=== PATIENT | male | born 1960 | race Caucasian/White ===

== ENCOUNTER 2017-12-22 10:52 | Outpatient (CLI) | payer OTHER ==
[2017-12-22 11:51] LABS: ALBUMIN 4.7 g/dL (3.2-5.5); ALBUMIN/GLOBULIN RATIO 1.6 (1.0-2.2); ALKALINE PHOSPHATASE 46 IU/L (42-121); ALT ALANINE AMINOTRANSFERASE 25 IU/L (10-60); AST ASPARTATE AMINOTRANSFERASE 21 IU/L (10-42); BILIRUBIN,TOTAL 0.9 mg/dL (0.2-1.0); BUN - BLOOD UREA NITROGEN 15 mg/dL (6-20); CALCIUM 9.4 mg/dL (8.5-10.3); CARBON DIOXIDE - CO2 29 mmol/L (21-32); CHLORIDE 101 mmol/L (101-111); CHOL/HDL RATIO 4.1 (<5.0); CHOLESTEROL 236 mg/dL; GFR - MDRD 76 (>89); GLUCOSE 102 mg/dL (70-100); HDL CHOLESTEROL 58 mg/dL; LDL CHOLESTEROL,CALCULATED 163 mg/dL; LDL/HDL RATIO 2.8 (<3.6); SODIUM 137 mmol/L (135-145); TOTAL PROTEIN 7.7 g/dL (6.7-8.2); VLDL CHOLESTEROL 15 mg/dL
[2017-12-22 11:52] LABS: BASOPHILS % (AUTO) 0.4 %; EOSINOPHILS # (AUTO) 0.1 10^3/uL (0.0-0.7); HGB - HEMOGLOBIN 15.4 g/dL (14.0-18.0); LYMPHOCYTES # (AUTO) 1.3 10^3/uL (1.5-3.5); LYMPHOCYTES % (AUTO) 22.8 %; MEAN CORPUSCULAR HEMOGLOBIN 30.4 pg (27.0-31.0); MEAN CORPUSCULAR HGB CONC 33.9 g/dL (32.0-36.0); MEAN CORPUSCULAR VOLUME 89.8 fL (80.0-94.0); MEAN PLATELET VOLUME 7.4 fL (7.4-11.4); MONOCYTES # (AUTO) 0.6 10^3/uL (0.0-1.0); MONOCYTES % (AUTO) 11.1 %; NEUTROPHILS # (AUTO) 3.6 10^3/uL (1.5-6.6); NEUTROPHILS % (AUTO) 63.7 %; PLT - PLATELET COUNT 306 10^3/uL (130-450); RED BLOOD COUNT 5.05 10^6/uL (4.70-6.10); RED CELL DISTRIBUTION WIDTH 13.3 % (12.0-15.0); WHITE BLOOD COUNT 5.6 x10^3/uL (4.8-10.8)
== END 2017-12-22 10:53 | disposition home or self-care (01) ==
LOC: LAB 10:52
PROVIDERS: ATTEND Internal Medicine
DX: Z00.8 Encounter for other general examination (principal); C09.9 Malignant neoplasm of tonsil, unspecified
CPT/HCPCS: 36415; 80053; 80061; 83721; 84153; 85025

== ENCOUNTER 2019-03-18 10:11 | Outpatient (CLI) | payer OTHER ==
[2019-03-18 10:21] LABS: BASOPHILS % (AUTO) 0.3 %; EOSINOPHILS # (AUTO) 0.1 10^3/uL (0.0-0.7); EOSINOPHILS % (AUTO) 2.1 %; HGB - HEMOGLOBIN 15.4 g/dL (14.0-18.0); MEAN CORPUSCULAR HEMOGLOBIN 30.4 pg (27.0-31.0); MEAN CORPUSCULAR VOLUME 91.9 fL (80.0-94.0); MEAN PLATELET VOLUME 8.6 fL (7.4-11.4); MONOCYTES # (AUTO) 0.6 10^3/uL (0.0-1.0); MONOCYTES % (AUTO) 11.1 %; NEUTROPHILS % (AUTO) 69.2 %; PLT - PLATELET COUNT 315 10^3/uL (130-450); RED BLOOD COUNT 5.07 10^6/uL (4.70-6.10); RED CELL DISTRIBUTION WIDTH 12.6 % (12.0-15.0); WHITE BLOOD COUNT 5.8 x10^3/uL (4.8-10.8)
[2019-03-18 10:40] LABS: ALBUMIN 4.8 g/dL (3.2-5.5); ALBUMIN/GLOBULIN RATIO 1.8 (1.0-2.2); ALKALINE PHOSPHATASE 50 IU/L (42-121); ALT ALANINE AMINOTRANSFERASE 55 IU/L (10-60); AST ASPARTATE AMINOTRANSFERASE 45 IU/L (10-42); BILIRUBIN,TOTAL 0.9 mg/dL (0.2-1.0); BUN - BLOOD UREA NITROGEN 13 mg/dL (6-20); CALCIUM 9.1 mg/dL (8.5-10.3); CARBON DIOXIDE - CO2 29 mmol/L (21-32); CHLORIDE 100 mmol/L (101-111); CHOL/HDL RATIO 3.5 (<5.0); CHOLESTEROL 252 mg/dL; GFR - MDRD 76 (>89); GLUCOSE 116 mg/dL (70-100); HDL CHOLESTEROL 72 mg/dL; LDL CHOLESTEROL,CALCULATED 166 mg/dL; LDL/HDL RATIO 2.3 (<3.6); SODIUM 137 mmol/L (135-145); TOTAL PROTEIN 7.5 g/dL (6.7-8.2); VLDL CHOLESTEROL 14 mg/dL
[2019-03-18 10:43] LABS: HB2 TOTAL 16.4 g/dL; HEMOGLOBIN A1C 0.61 g/dL; HEMOGLOBIN A1C % 5.6 % (4.6-6.2)
== END 2019-03-18 10:12 | disposition home or self-care (01) ==
LOC: LAB 10:11
PROVIDERS: ATTEND Family Medicine
DX: E78.5 Hyperlipidemia, unspecified (principal); R01.1 Cardiac murmur, unspecified; M19.90 Unspecified osteoarthritis, unspecified site
CPT/HCPCS: 36415; 80053; 80061; 83036; 83721; 84443; 85025

== ENCOUNTER 2021-01-03 07:46 | Outpatient (CLI) | payer OTHER ==
[2021-01-03 08:52] LABS: ALBUMIN 5.2 g/dL (3.2-5.5); ALKALINE PHOSPHATASE 45 IU/L (42-121); ALT ALANINE AMINOTRANSFERASE 36 IU/L (10-60); AST ASPARTATE AMINOTRANSFERASE 28 IU/L (10-42); BILIRUBIN,TOTAL 0.8 mg/dL (0.2-1.0); BUN - BLOOD UREA NITROGEN 18 mg/dL (6-20); CALCIUM 9.8 mg/dL (8.5-10.3); CARBON DIOXIDE - CO2 29 mmol/L (21-32); CHLORIDE 99 mmol/L (101-111); CHOL/HDL RATIO 3.2 (<5.0); CHOLESTEROL 204 mg/dL; CREATININE 0.9 mg/dL (0.6-1.2); GFR - MDRD 86 (>89); GLUCOSE 104 mg/dL (70-100); HDL CHOLESTEROL 63 mg/dL; LDL CHOLESTEROL,CALCULATED 128 mg/dL; POTASSIUM 4.4 mmol/L (3.5-5.0); SODIUM 138 mmol/L (135-145); TOTAL PROTEIN 7.8 g/dL (6.7-8.2); TRIGLYCERIDES 64 mg/dL; VLDL CHOLESTEROL 13 mg/dL
== END 2021-01-03 07:47 | disposition home or self-care (01) ==
LOC: LAB 07:46
PROVIDERS: ATTEND Family Medicine
DX: E78.5 Hyperlipidemia, unspecified (principal); E03.9 Hypothyroidism, unspecified; N40.1 Benign prostatic hyperplasia with lower urinary tract symptoms
CPT/HCPCS: 36415; 80053; 80061; 83721; 84153; 84443

== ENCOUNTER 2021-03-28 07:31 | Outpatient (CLI) | payer OTHER ==
[2021-03-28 08:41] LABS: PSA FREE 2.29 ng/mL (0.16-2.81)
[2021-03-28 08:42] LABS: PSA TOTAL 19.6 ng/mL (0.000-2.000)
== END 2021-03-28 07:32 | disposition home or self-care (01) ==
LOC: LAB 07:31
PROVIDERS: ATTEND Physician Assistant
DX: R97.20 Elevated prostate specific antigen [PSA] (principal)
CPT/HCPCS: 36415; 84153; 84154

== ENCOUNTER 2021-07-08 11:20 | Outpatient (CLI) | payer OTHER | END 2021-07-08 11:21 | disposition home or self-care (01) | LOC: LAB 11:20 | PROVIDERS: ATTEND Urology | DX: R97.20 Elevated prostate specific antigen [PSA] (principal) | CPT/HCPCS: 36415; 84153 ==

== ENCOUNTER 2021-08-15 07:08 | Day surgery (SDC) | payer OTHER ==
[~2021-08-15 07:08] MED LIST: CYCLOPENTOLATE 1% OPHTH DROPS 2 ML ONE; KETOROLAC 0.45% OPHTH DROPS ONE; PHENYLEPHRINE 2.5% OPHTH 2 ML DROPS ONE; PROPARACAINE 0.5% OPHTH DROPS 15 ML ONE
[2021-08-15] MEDS ORDERED: LACTATED RINGERS 1,000 ML IV ONE ×2 (07:11→09:16)
--- NOTE | 2021-08-15 07:44 | ANESTHESIA ---
Pre-Anesthesia VS, & Labs - Diagnosis left senile combined cataract - Procedure left cataract extraction with IOL Vital Signs: Temp Pulse Resp BP Pulse Ox 36.4 C L 65 16 132/92 H 99 08/15/21 07:20 08/15/21 07:20 08/15/21 07:20 08/15/21 07:20 08/15/21 07:20 Height: 5 ft 9 in Weight (kg): 96 kg Body Mass Index: 31.2 BMI Classification: Obese - NPO >8 hours Home Medications and Allergies Home Medications: Ambulatory Orders Atorvastatin [Lipitor] 20 mg PO DAILY 08/14/21 Atorvastatin [Lipitor] 20 mg PO DAILY 08/14/21 Allergies/Adverse Reactions: Allergies Allergy/AdvReac Type Severity Reaction Status Date / Time No Known Drug Allergies Allergy Verified 08/14/21 12:34 Anes History & Medical History - Anesthetic History Anesthesia Complications: reports: No previous complications - Medical History Cardiovascular: reports: High cholesterol Pulmonary: reports: None Gastrointestinal: reports: None Urinary: reports: Other Musculoskeletal: reports: None Endocrine/Autoimmune: reports: None Skin: reports: None History of Cancer?: No - Surgical History General: reports: Colonoscopy Exam General: Alert, Oriented x3 Dental: WNL Mouth Opening: Greater than 4 Fingerbreadths Neck Mobility: Normal Mallampati classification: I Respiratory: Lungs clear Cardiovascular: Regular rate, Normal S1, Normal S2 Plan Anesthesia Type: MAC Consent for Procedure(s) Verified and Reviewed: Yes Code Status: Attempt Resuscitation ASA classification: 2-Mild systemic disease Is this case an emergency?: No
[2021-08-15] MEDS ORDERED: fentaNYL 100 MCG/2 ML VIAL ONE (08:29)
[2021-08-15] MEDS ORDERED: MIDAZOLAM 2 MG/2 ML VIAL ONE (08:29)
[2021-08-15] MEDS ORDERED: PROPARACAINE 0.5% OPHTH DROPS 15 ML EACHEYE ONE (09:05)
[2021-08-15] MEDS ORDERED: EPINEPHrine 1 MG/ML AMP IR ONE (09:05)
[2021-08-15] MEDS ORDERED: TIMOLOL 0.5% OPHTH DROPS OPTH ONE (09:05)
[2021-08-15] MEDS ORDERED: BRIMONIDINE 0.2% OPHTH DROPS 5 ML OPTH ONE (09:05)
[2021-08-15] MEDS ORDERED: BSS/LIDOCAINE/EPINEPHRINE 1 ML SYRINGE IO ONE (09:05)
[2021-08-15] MEDS ORDERED: TRIAMCIN/MOXIFLOX OPHTHALMIC 0.6 ML VIAL IO ONE ×2 (09:05→10:32)
[2021-08-15] MEDS ORDERED: VANCOMYCIN OPHTHALMI 8MG/0.8ML 8 MG/0.8 ML SYRINGE IO ONE (09:06)
--- NOTE | 2021-08-15 09:27 | OPERATIVE REPORT ---
Operative Report - Other Other Information/Narrative: Date of Surgery: 08/15/21 Preop Dx: Visually significant cataract left eye. This was the first cataract surgery. Postop Dx: Same Procedure: Phacoemulsification with posterior chamber intraocular lens implant left eye Surgeon: Dr. Jairon Delacruz Anesthesia: Monitored anesthesia care Complications: None Operative Indications: This is a 61-year-old M with progressive vision loss in the left eye due to 1-2+ nuclear sclerotic and 3-4+ cortical cataract. Best corrected visual acuity was 20/25 with glare to light perception vision in the left eye. Indications for surgery were: - Overall decrease in vision - Difficulty seeing words on a computer screen - Difficulty reading - Difficulty driving in low light or at night - Difficulty driving at night because of headlights from other vehicles - Difficulty with glare or bright lights in any situation The patient was consented at length concerning the risks and benefits of cataract surgery after which the patient expressed a desire to proceed with surgery. Operative Procedure: The patient was taken into OR#3 and placed under monitored anesthesia care. A surgical time-out was conducted confirming correct patient, correct procedure, and correct surgical site. The patient was given topical anesthesia and then prepped and draped in the usual sterile fashion. The eye was entered at the 6 and 3 oclock positions. Intracameral Shugarcaine was injected into the anterior chamber followed by a dispersive viscoelastic. A continuous-tear curvilinear capsulorhexis was performed. The nucleus was hydrodissected and phacoemulsified. The cortex was evacuated using automated infusion and aspiration. A cohesive viscoelastic was injected into the capsular bag and a 21.0 diopter intraocular lens was inserted into the bag. Infusion and aspiration were used to evacuate the viscoelastic materials from the eye. The wounds were hydrated and the eye inflated to physiologic pressure using balanced salt solution. Approximately 0.25ml of a mixture of triamcinolone and moxifloxacin was injected trans-sclerally into the vitreous in the inferotemporal quadrant using a 30 gauge cannula. An additional 0.55ml of a mixture of triamcinolone, moxifloxacin, and vancomycin was injected subconjunctivally in the superior quadrant for infection and inflammation prophylaxis. Wound integrity was checked with Weck-Mariaelena sponges. The patient was taken from the operating room in good condition and given post-op instructions.
[2021-08-15 09:33] VITALS: BP 125/74
--- NOTE | 2021-08-15 09:44 | ANESTHESIA POST OP EVALUATION ---
Anesthesia Post Eval - Post Anesthesia Eval Vitals: Last Vital Signs Temp 36.5 C 08/15/21 09:32 Pulse 62 08/15/21 09:32 Resp 16 08/15/21 09:32 BP 125/74 08/15/21 09:32 Pulse Ox 96 08/15/21 09:32 CV Function Including HR & BP: Stable Pain Control: Satisfactory Nausea & Vomiting: Negative Mental Status: Baseline Respiratory Status: Airway Patent Hydration Status: Satisfactory Anesthesia Complications: None
[2021-08-15] MEDS ORDERED: BSS/LIDOCAINE/EPINEPHRINE 1 ML VIAL ONE (10:33)
[2021-08-15] MEDS ORDERED: BRIMONIDINE 0.2% OPHTH DROPS 5 ML ONE (10:33)
[2021-08-15] MEDS ORDERED: TIMOLOL 0.5% OPHTH DROPS ONE (10:33)
== END 2021-08-15 07:09 | disposition home or self-care (01) ==
LOC: SDS 07:08
PROVIDERS: ATTEND Ophthalmology
DX: H25.812 Combined forms of age-related cataract, left eye (principal); E66.9 Obesity, unspecified; Z68.31 Body mass index [BMI] 31.0-31.9, adult
CPT/HCPCS: 66984; A9270; J3490; J7120

== ENCOUNTER 2021-09-02 10:11 | Outpatient (CLI) | payer OTHER ==
[2021-09-02 11:37] LABS: PSA FREE 6.187 ng/mL (0.16-2.81)
[2021-09-02 11:38] LABS: PSA TOTAL 48.764 ng/mL (0.000-2.000)
== END 2021-09-02 10:12 | disposition home or self-care (01) ==
LOC: LAB 10:11
PROVIDERS: ATTEND Physician Assistant
DX: C61 Malignant neoplasm of prostate (principal)
CPT/HCPCS: 36415; 84153; 84154

== ENCOUNTER 2021-12-09 12:00 | Outpatient (CLI) | payer OTHER | END 2021-12-09 12:01 | disposition home or self-care (01) | LOC: LAB 12:00 | PROVIDERS: ATTEND Urology | DX: C61 Malignant neoplasm of prostate (principal) | CPT/HCPCS: 36415; 84153; 84403 ==

== ENCOUNTER 2022-07-17 12:53 | Outpatient (CLI) | payer OTHER ==
[2022-07-17 13:54] LABS: CHOL/HDL RATIO 3.4 (<5.0); CHOLESTEROL 258 mg/dL; HDL CHOLESTEROL 77 mg/dL; LDL CHOLESTEROL,CALCULATED 154 mg/dL; TRIGLYCERIDES 134 mg/dL; VLDL CHOLESTEROL 27 mg/dL
[2022-07-18 05:14] LABS: HCV AB Non Reactive (Non Reactive)
== END 2022-07-17 12:54 | disposition home or self-care (01) ==
LOC: LAB 12:53
PROVIDERS: ATTEND Physician Assistant
DX: E78.5 Hyperlipidemia, unspecified (principal); E03.9 Hypothyroidism, unspecified; Z11.59 Encounter for screening for other viral diseases
CPT/HCPCS: 36415; 80061; 83721; 84443; 86803

== ENCOUNTER 2022-09-11 11:17 | Outpatient (CLI) | payer OTHER ==
[2022-09-11 12:08] LABS: THYROID STIMULATING HORMONE 7.09 uIU/mL (0.34-5.60)
[2022-09-11 12:10] LABS: FREE T4 (FREE THYROXINE) 0.52 ng/dL (0.58-1.64)
== END 2022-09-11 11:18 | disposition home or self-care (01) ==
LOC: LAB 11:17
PROVIDERS: ATTEND Nurse Practitioner Family
DX: R94.6 Abnormal results of thyroid function studies (principal)
CPT/HCPCS: 36415; 84439; 84443

== ENCOUNTER 2022-09-20 09:02 | Outpatient (CLI) | payer OTHER ==
[~2022-09-20 09:02] MED LIST changes: -CYCLOPENTOLATE 1% OPHTH DROPS 2 ML ONE; +GADOBUTROL 10 MMOL/10 ML VIAL ONE; -KETOROLAC 0.45% OPHTH DROPS ONE; -PHENYLEPHRINE 2.5% OPHTH 2 ML DROPS ONE; -PROPARACAINE 0.5% OPHTH DROPS 15 ML ONE
[2022-09-20 09:25] LABS: CALCIUM 9.5 mg/dL (8.5-10.3); CREATININE 0.9 mg/dL (0.6-1.2); POTASSIUM 4.4 mmol/L (3.5-5.0)
[2022-09-20] MEDS ORDERED: GADOBUTROL 10 MMOL/10 ML VIAL IVP ONE (11:18)
--- NOTE | 2022-09-22 17:56 | MRI Report ---
PROCEDURE: THORACIC SPINE W/WO INDICATIONS: PROSTATE CA, METASTASIS TO BONE CONTRAST: GADAVIST 9.0 ML TECHNIQUE: Noncontrast sagittal T1 spin echo and T2 fast spin echo, sagittal STIR, axial T1 and T2 fast spin ech o through the thoracic spine. After the administration of contrast, axial and sagittal T1 spin echo with fat saturation through the thoracic spine. COMPARISON: None. FINDINGS: Image quality: Excellent. Alignment and curvature: There is normal bony alignment. Marrow: Marrow demonstrates diffuse abnormality within significant portion of the visualized thoracic spine. Areas of abnormal marrow signal are present at C7-T2 without definitive abnormal enhancement. However, abnormal enhancement and signal are identified from T5 through T10 and at T12. There are no visualized pathological fractures. Spinal cord: Visualized spinal cord is of normal signal and size, without abnormal enhancement. Paraspinous soft tissues: No paravertebral masses or abnormal enhancement. Miscellaneous: Central canal and foramina appear widely patent at all scanned levels. IMPRESSION: Multilevels of abnormal signal and enhancement consistent with metastatic disease. No compression fra ctures. No visualized enhancement within the spinal cord or canal. Reviewed by: Saige Murillo MD on 09/22/2022 5:55 PM PDT Approved by: Saige Murillo MD on 09/22/2022 5:55 PM PDT Station ID: [id number]
== END 2022-09-20 09:03 | disposition home or self-care (01) ==
LOC: LAB 09:02
PROVIDERS: ATTEND Neurological Surgery
DX: C61 Malignant neoplasm of prostate (principal); C79.51 Secondary malignant neoplasm of bone; M48.062 Spinal stenosis, lumbar region with neurogenic claudication
CPT/HCPCS: 36415; 72157; 80048; A9585

== ENCOUNTER 2023-03-02 10:50 | Outpatient (CLI) | payer MEDICARE, OTHER ==
[2023-03-02 11:28] LABS: CHOL/HDL RATIO 3.3 (<5.0); CHOLESTEROL 186 mg/dL; HDL CHOLESTEROL 57 mg/dL; LDL CHOLESTEROL,CALCULATED 109 mg/dL; LDL/HDL RATIO 1.9 (<3.6); TRIGLYCERIDES 101 mg/dL (48-352); VLDL CHOLESTEROL 20 mg/dL
[2023-03-02 12:01] LABS: THYROID STIMULATING HORMONE 2.64 uIU/mL (0.34-5.60)
== END 2023-03-02 10:51 | disposition home or self-care (01) ==
LOC: LAB 10:50
PROVIDERS: ATTEND Nurse Practitioner Family
DX: E78.5 Hyperlipidemia, unspecified (principal); E03.9 Hypothyroidism, unspecified
CPT/HCPCS: 36415; 80061; 83721; 84443

== ENCOUNTER 2023-06-12 08:00 | Outpatient (CLI) | payer OTHER | END 2023-06-12 23:59 | disposition home or self-care (01) | LOC: PC 08:00 | PROVIDERS: ATTEND Nurse Practitioner Adult Health | DX: Z51.5 Encounter for palliative care (principal); G89.3 Neoplasm related pain (acute) (chronic); C61 Malignant neoplasm of prostate; C77.9 Secondary and unspecified malignant neoplasm of lymph node, unspecified; C79.51 Secondary malignant neoplasm of bone; K59.03 Drug induced constipation; T40.2X5A Adverse effect of other opioids, initial encounter; F41.9 Anxiety disorder, unspecified; G47.00 Insomnia, unspecified; Z71.89 Other specified counseling | CPT/HCPCS: 99215 ==

== ENCOUNTER 2023-06-14 08:00 | Outpatient (CLI) | payer OTHER | END 2023-06-14 23:59 | disposition home or self-care (01) | LOC: PC 08:00 | PROVIDERS: ATTEND Nurse Practitioner Adult Health | DX: Z51.5 Encounter for palliative care (principal); C61 Malignant neoplasm of prostate; C79.51 Secondary malignant neoplasm of bone | CPT/HCPCS: 99426 ==

== ENCOUNTER 2023-06-26 08:00 | Outpatient (CLI) | payer OTHER | END 2023-06-26 23:59 | disposition home or self-care (01) | LOC: PC 08:00 | PROVIDERS: ATTEND Nurse Practitioner Adult Health | DX: Z51.5 Encounter for palliative care (principal); G89.3 Neoplasm related pain (acute) (chronic); C61 Malignant neoplasm of prostate; C79.51 Secondary malignant neoplasm of bone; Z19.2 Hormone resistant malignancy status; G47.00 Insomnia, unspecified; F41.8 Other specified anxiety disorders; K59.03 Drug induced constipation; T40.2X5A Adverse effect of other opioids, initial encounter; Z71.89 Other specified counseling; Z79.899 Other long term (current) drug therapy; Z79.891 Long term (current) use of opiate analgesic; Z79.52 Long term (current) use of systemic steroids; R63.0 Anorexia; R53.83 Other fatigue | CPT/HCPCS: 99215 ==

== ENCOUNTER 2023-07-02 13:48 | Outpatient (CLI) | payer OTHER | END 2023-07-02 13:49 | disposition home or self-care (01) | LOC: LAB 13:48 | PROVIDERS: ATTEND Radiology Radiation Oncology | DX: C61 Malignant neoplasm of prostate (principal); C79.51 Secondary malignant neoplasm of bone ==

== ENCOUNTER 2023-07-14 08:00 | Outpatient (CLI) | payer OTHER | END 2023-07-14 23:59 | disposition home or self-care (01) | LOC: PC 08:00 | PROVIDERS: ATTEND Nurse Practitioner Adult Health | DX: Z51.5 Encounter for palliative care (principal); C61 Malignant neoplasm of prostate; C79.51 Secondary malignant neoplasm of bone | CPT/HCPCS: 99426 ==

== ENCOUNTER 2023-07-24 14:00 | Outpatient (CLI) | payer OTHER | END 2023-07-24 23:59 | disposition home or self-care (01) | LOC: PC 14:00 | PROVIDERS: ATTEND Nurse Practitioner Adult Health | DX: Z51.5 Encounter for palliative care (principal); G89.3 Neoplasm related pain (acute) (chronic); C61 Malignant neoplasm of prostate; R53.83 Other fatigue; C79.51 Secondary malignant neoplasm of bone | CPT/HCPCS: 99215 ==

== ENCOUNTER 2023-08-14 08:00 | Outpatient (CLI) | payer OTHER | END 2023-08-14 23:59 | disposition home or self-care (01) | LOC: PC 08:00 | PROVIDERS: ATTEND Nurse Practitioner Adult Health | DX: Z51.5 Encounter for palliative care (principal); G89.3 Neoplasm related pain (acute) (chronic); C61 Malignant neoplasm of prostate; K59.03 Drug induced constipation; T40.2X5A Adverse effect of other opioids, initial encounter; R53.83 Other fatigue; R03.0 Elevated blood-pressure reading, without diagnosis of hypertension; R23.2 Flushing; R61 Generalized hyperhidrosis; Z71.89 Other specified counseling | CPT/HCPCS: 99215; 99426 ==

== ENCOUNTER 2023-08-14 08:00 | Outpatient (CLI) | payer OTHER | END 2023-08-14 23:59 | disposition home or self-care (01) | LOC: PC 08:00 | PROVIDERS: ATTEND Nurse Practitioner Adult Health | DX: Z53.9 Procedure and treatment not carried out, unspecified reason (principal) ==

== ENCOUNTER 2023-10-09 08:00 | Outpatient (CLI) | payer OTHER | END 2023-10-09 23:59 | disposition home or self-care (01) | LOC: PC 08:00 | PROVIDERS: ATTEND Nurse Practitioner Adult Health | DX: Z51.5 Encounter for palliative care (principal); C61 Malignant neoplasm of prostate; C79.51 Secondary malignant neoplasm of bone; Z19.2 Hormone resistant malignancy status; G89.3 Neoplasm related pain (acute) (chronic); R53.83 Other fatigue; D64.9 Anemia, unspecified; Z79.52 Long term (current) use of systemic steroids; Z79.891 Long term (current) use of opiate analgesic; Z79.818 Long term (current) use of other agents affecting estrogen receptors and estrogen levels; Z92.3 Personal history of irradiation; Z85.818 Personal history of malignant neoplasm of other sites of lip, oral cavity, and pharynx; R23.2 Flushing; R63.0 Anorexia; Z79.899 Other long term (current) drug therapy; Z91.85 Personal history of military service; Z77.9 Other contact with and (suspected) exposures hazardous to health; K59.03 Drug induced constipation; F41.8 Other specified anxiety disorders; I10 Essential (primary) hypertension | CPT/HCPCS: 99215 ==

== ENCOUNTER 2023-10-12 10:26 | Outpatient (CLI) | payer OTHER ==
[2023-10-12 10:40] LABS: BASOPHILS % (AUTO) 0.2 %; EOSINOPHILS % (AUTO) 0.7 %; HCT - HEMATOCRIT 33.2 % (42.0-52.0); HGB - HEMOGLOBIN 10.3 g/dL (14.0-18.0); LYMPHOCYTES # (AUTO) 0.3 10^3/uL (1.5-3.5); LYMPHOCYTES % (AUTO) 4.6 %; MEAN CORPUSCULAR HEMOGLOBIN 28.5 pg (27.0-31.0); MEAN PLATELET VOLUME 8.1 fL (7.4-11.4); MONOCYTES # (AUTO) 0.6 10^3/uL (0.0-1.0); NEUTROPHILS # (AUTO) 5.2 10^3/uL (1.5-6.6); NEUTROPHILS % (AUTO) 85.2 %; PLT - PLATELET COUNT 369 10^3/uL (130-450); RED BLOOD COUNT 3.61 10^6/uL (4.70-6.10); RED CELL DISTRIBUTION WIDTH 14.2 % (12.0-15.0); WHITE BLOOD COUNT 6.1 x10^3/uL (4.8-10.8)
[2023-10-12 11:01] LABS: ALBUMIN 3.9 g/dL (3.2-5.5); ALBUMIN/GLOBULIN RATIO 1.3 (1.0-2.2); BILIRUBIN,TOTAL 0.3 mg/dL (0.2-1.0); CALCIUM 9.5 mg/dL (8.5-10.3); CREATININE 0.9 mg/dL (0.6-1.3); POTASSIUM 4.3 mmol/L (3.5-4.5); TOTAL PROTEIN 6.9 g/dL (6.4-8.9)
== END 2023-10-12 10:27 | disposition home or self-care (01) ==
LOC: LAB 10:26
PROVIDERS: ATTEND Internal Medicine Hematology & Oncology
DX: C61 Malignant neoplasm of prostate (principal)
CPT/HCPCS: 36415; 80053; 84153; 84154; 85025

== ENCOUNTER 2023-11-06 11:00 | Outpatient (CLI) | payer OTHER | END 2023-11-06 23:59 | disposition home or self-care (01) | LOC: PC 11:00 | PROVIDERS: ATTEND Nurse Practitioner Adult Health | DX: Z51.5 Encounter for palliative care (principal); C61 Malignant neoplasm of prostate; C79.51 Secondary malignant neoplasm of bone; G89.3 Neoplasm related pain (acute) (chronic); R53.83 Other fatigue; K59.03 Drug induced constipation; Z79.52 Long term (current) use of systemic steroids; Z79.899 Other long term (current) drug therapy; Z71.89 Other specified counseling | CPT/HCPCS: 99215 ==

== ENCOUNTER 2023-11-06 11:18 | Outpatient (CLI) | payer OTHER | END 2023-11-06 11:19 | disposition home or self-care (01) | LOC: LAB.R 11:18 | PROVIDERS: ATTEND Radiology Radiation Oncology | DX: C61 Malignant neoplasm of prostate (principal); C79.51 Secondary malignant neoplasm of bone | CPT/HCPCS: 84153 ==

== ENCOUNTER 2023-12-28 11:51 | Inpatient (IN) ==
--- NOTE | 2023-12-28 12:27 | ED Physician Documentation ---
History of Present Illness Stated complaint Stated Complaint: CP Chief complaint Chief Complaint: Cardiac Additonal information Additional information: He has a history of metastatic prostate cancer and being treated by Dr. Hart. He is on Zytiga most recently and also getting Lupron hormonal therapy. He was seen by my partner earlier in the month for pleuritic chest pain. Was found to have bony mets to the ribs and also pleural effusion. He needed a transfusion at the time. Subsequently that pain got better but now has recurrent left anterior pinpoint chest wall pain worse with deep breathing but he is not short of breath per se. No fevers or chills. His pain is currently controlled after taking oxycodone this morning. Meds/Allgy Home Medications Ambulatory Orders Medication Instructions Recorded Confirmed enzalutamide 80 mg tablet 160 mg (2 x 80 mg) PO QDAY #60 tabs 12/21/23 12/21/23 abiraterone 250 mg tablet (Zytiga) 1,000 mg PO QDAY 12/22/23 atorvastatin 40 mg tablet (Lipitor) 40 mg PO QDAY 12/22/23 latanoprost (PF) 0.005 % eye drops 150 drp ophthalmic (eye) DAILY 12/22/23 latanoprost 0.005 % eye drops 1 drp ophthalmic (eye) QPM 12/22/23 levothyroxine 50 mcg tablet 50 mcg PO QDAY 12/22/23 morphine 30 mg tablet,extended 30 mg PO Q8H Pain 12/22/23 release multivitamin 1 tab PO QDAY 12/22/23 naloxone 4 mg/actuation nasal 4 mg intranasal Q3M PRN opioid 12/22/23 spray (Narcan) overdose ondansetron HCl 8 mg tablet 8 mg PO .Q6 hours PRN Nausea / 12/22/23 Vomiting prednisone 5 mg tablet 5 mg PO BID 12/22/23 pregabalin 25 mg capsule 25 mg PO TID 12/22/23 tamsulosin 0.4 mg capsule 0.8 mg PO QDAY 12/22/23 venlafaxine 75 mg tablet 75 mg PO BID 12/22/23 methylphenidate HCl 10 mg tablet 15 mg (1.5 x 10 mg) PO BID fatigue 12/23/23 12/23/23 #45 tabs morphine 15 mg tablet,extended 15 mg PO TID #45 tabs 12/23/23 12/23/23 release (MS Contin) oxycodone 5 mg tablet 5 - 15 mg (1 - 3 x 5 mg) PO .every 12/23/23 12/23/23 three hours PRN pain #240 tabs prednisone 5 mg tablet 5 mg PO BID #60 tabs 12/23/23 12/23/23 amoxicillin-potassium clavulanate 1 tab PO BID #10 tabs 12/28/23 1,000 mg-62.5 mg tablet,ext.rel 12hr (Augmentin XR) azithromycin 250 mg tablet 250 mg PO DAILY 4 days #4 tabs 12/28/23 Allergies Allergies Allergy/AdvReac Type Severity Reaction Status Date / Time No Known Drug Allergies Allergy Verified 12/28/23 12:02 [facility] Medical History Medical History (Updated 12/28/23 @ 15:37 by Zia Goddard MD) Tonsil cancer Surgical History Surgical History (Updated 12/28/23 @ 12:01 by Zuly Donis RN, BSN) History of insertion of central venous access port Social History Social History Smoking Status: Never smoker Relationship: Do you feel safe in your home environment?: Yes Suffered physical, verbal, emotional, or financial abuse?: No Exam Constitutional normal general appearance and no apparent distress Respiratory breath sounds equal bilaterally and normal respiratory effort Left ribs are tender Cardiovascular normal heart rate noted and regular rhythm noted He does have a systolic decrescendo murmur which she says is chronic Gastrointestinal abdomen soft to palpation and nontender to palpation Extremities No edema or tenderness Psychiatry mental status grossly normal and oriented x3 Results Vitals Vitals: Vital Signs - 24 hr 12/28/23 11:54 12/28/23 12:09 12/28/23 12:10 Temperature 36.2 C L Temperature Source Pulse Rate 102 H 93 H Respiratory Rate 18 Blood Pressure 112/76 124/78 Blood Pressure [Left] 124/78 O2 Saturation 96 97 O2 Source Room air Room air If not protocol: Oxygen Flow, liters/minute Pain Intensity 7 2 12/28/23 12:12 12/28/23 12:32 12/28/23 12:39 Temperature Temperature Source Pulse Rate 90 89 85 Respiratory Rate 18 Blood Pressure 119/71 119/71 101/65 Blood Pressure [Left] O2 Saturation 96 96 94 O2 Source Room air Room air Room air If not protocol: Oxygen Flow, liters/minute Pain Intensity 2 2 2 12/28/23 13:02 12/28/23 13:09 12/28/23 13:32 Temperature Temperature Source Pulse Rate 85 91 H 90 Respiratory Rate 14 16 Blood Pressure 101/65 105/73 105/73 Blood Pressure [Left] O2 Saturation 94 89 L 94 O2 Source Room air Room air Room air If not protocol: Oxygen Flow, liters/minute Pain Intensity 2 2 2 12/28/23 13:40 12/28/23 14:02 12/28/23 15:05 Temperature Temperature Source Pulse Rate 82 82 97 H Respiratory Rate 16 Blood Pressure 121/71 121/71 122/76 Blood Pressure [Left] O2 Saturation 94 94 95 O2 Source Room air Room air Room air If not protocol: Oxygen Flow, liters/minute Pain Intensity 2 2 2 12/28/23 15:07 12/28/23 15:08 12/28/23 15:35 Temperature 36.4 C L Temperature Source Temporal Artery Scan Pulse Rate 98 H 89 Respiratory Rate 22 Blood Pressure 122/76 115/68 Blood Pressure [Left] O2 Saturation 95 86 L 95 O2 Source Room air Room air Room air If not protocol: Oxygen Flow, liters/minute Pain Intensity 4 2 12/28/23 15:52 12/28/23 16:03 12/28/23 16:30 Temperature 36.2 C L Temperature Source Temporal Artery Scan Pulse Rate 93 H 85 Respiratory Rate 19 Blood Pressure 123/74 106/67 Blood Pressure [Left] O2 Saturation 91 L 22 L O2 Source Room air Nasal cannula If not protocol: Oxygen Flow, liters/minute 2 Pain Intensity 4 2 2 12/28/23 16:54 12/28/23 16:55 Temperature 36.2 C L Temperature Source Temporal Artery Scan Pulse Rate 90 Respiratory Rate 25 H Blood Pressure 116/73 Blood Pressure [Left] O2 Saturation 98 O2 Source Nasal cannula If not protocol: Oxygen Flow, liters/minute 2 Pain Intensity 2 2 Oxygen O2 Source Nasal cannula EKG (time done) 1155: EKG releavant findings:: EKG personally interpreted by author of this note. Relevant findings are: Rate: Rate (enter#) (94) Rhythm: NSR [place]: Normal Intervals: Normal VA QRS: Normal Ischemia: Non specific changes; No ST elevation c/w ischemia Labs Labs: Laboratory Tests 12/28/23 12/28/23 12:40 15:43 WBC 6.5 RBC 2.77 L Hgb 7.6 L Hct 25.5 L MCV 92.1 MCH 27.4 MCHC 29.8 L RDW 17.4 H Plt Count 279 MPV 8.3 Neut # (Auto) 5.2 Lymph # (Auto) 0.4 L [place] # (Auto) 0.8 Eos # (Auto) 0.0 Baso # (Auto) 0.0 Absolute Nucleated RBC 0.00 Nucleated RBC % 0.0 Sodium 132 L Potassium 3.8 Chloride 97 L Carbon Dioxide 28 Anion Gap 7.0 BUN 10 Creatinine 0.6 Estimated GFR (MDRD) 135 Glucose 130 H Lactic Acid 1.0 Calcium 8.7 Total Bilirubin 0.5 AST 40 ALT 26 Alkaline Phosphatase 753 H Troponin I High Sens 4.1 Total Protein 6.7 Albumin 3.3 Globulin 3.4 Albumin/Globulin Ratio 1.0 Lipase < 10 L Rads (name of study) CT angio of the chest demonstrates no PE but he does have a left lower lobe pneumonia and metastatic disease: Relevant Findings:: Final report received and EMP independent interpretation of test PD Medical Decision Making ED course ED course: He presents with pleuritic left chest pain that I think is most likely from rib metastases. They are also concerned about a recurrent pleural effusion and differential would also include PE. Will workup with CTPA as well as routine cardiac testing although this does not sound like ACS. Subsequently workup demonstrates a normal white count. He is quite anemic but does not past the transfusion threshold. CMP is stable. He has elevated alkaline phosphatase which is also stable likely from his metastatic disease. CT angiography of the chest demonstrates a lower lobe pneumonia and he is treated with Augmentin and azithromycin. However prior to discharge he had a lot more pain and developed some hypoxemia to 86 on room air. As such the oral antibiotics were canceled and ordered blood cultures and Rocephin and azithromycin and put him on oxygen and called the hospitalist for admission at 3:17 PM. Discharge Plan Discharge Patient Disposition: 64 [facility] DC/Xfer Condition: Serious Clinical Impression: Prostate cancer Pneumonia Qualifiers: Pneumonia type: due to unspecified organism Laterality: left Lung location: lower lobe of lung Qualified Code(s): J18.9 - Pneumonia, unspecified organism Anemia Qualifiers: Anemia type: other cause Other causes of anemia: chronic disease, neoplastic Qualified Code(s): D63.0 - Anemia in neoplastic disease Respiratory failure Qualifiers: Chronicity: acute Respiratory failure complication: hypoxia Qualified Code(s): J96.01 - Acute respiratory failure with hypoxia Interventions: ED Admission Assessment Last Done: 12/28/23 16:55
[2023-12-28 12:46] LABS: BASOPHILS % (AUTO) 0.2 %; EOSINOPHILS % (AUTO) 0.2 %; HCT - HEMATOCRIT 25.5 % (42.0-52.0); HGB - HEMOGLOBIN 7.6 g/dL (14.0-18.0); LYMPHOCYTES # (AUTO) 0.4 10^3/uL (1.5-3.5); LYMPHOCYTES % (AUTO) 6.8 %; MEAN CORPUSCULAR HEMOGLOBIN 27.4 pg (27.0-31.0); MEAN CORPUSCULAR HGB CONC 29.8 g/dL (32.0-36.0); MEAN CORPUSCULAR VOLUME 92.1 fL (80.0-94.0); MEAN PLATELET VOLUME 8.3 fL (7.4-11.4); MONOCYTES # (AUTO) 0.8 10^3/uL (0.0-1.0); MONOCYTES % (AUTO) 12.5 %; NEUTROPHILS # (AUTO) 5.2 10^3/uL (1.5-6.6); NEUTROPHILS % (AUTO) 79.2 %; PLT - PLATELET COUNT 279 10^3/uL (130-450); RED BLOOD COUNT 2.77 10^6/uL (4.70-6.10); RED CELL DISTRIBUTION WIDTH 17.4 % (12.0-15.0); WHITE BLOOD COUNT 6.5 x10^3/uL (4.8-10.8)
[2023-12-28] MEDS ORDERED: iohexoL-300 100 ML VIAL ONE (12:49)
[2023-12-28 13:02] LABS: ALBUMIN 3.3 g/dL (3.2-5.5); ALKALINE PHOSPHATASE 753 IU/L (42-121); ALT ALANINE AMINOTRANSFERASE 26 IU/L (10-60); AST ASPARTATE AMINOTRANSFERASE 40 IU/L (10-42); BILIRUBIN,TOTAL 0.5 mg/dL (0.2-1.0); BUN - BLOOD UREA NITROGEN 10 mg/dL (6-20); CALCIUM 8.7 mg/dL (8.5-10.3); CARBON DIOXIDE - CO2 28 mmol/L (21-32); CHLORIDE 97 mmol/L (101-111); CREATININE 0.6 mg/dL (0.6-1.3); GFR - MDRD 135 (>89); GLUCOSE 130 mg/dL (74-104); LIPASE < 10 U/L (11-82); POTASSIUM 3.8 mmol/L (3.5-4.5); SODIUM 132 mmol/L (135-145); TOTAL PROTEIN 6.7 g/dL (6.4-8.9)
[2023-12-28 13:06] LABS: TROPONIN I HIGH SENSITIVITY 4.1 ng/L (2.3-19.7)
--- NOTE | 2023-12-28 14:50 | CT Report ---
PROCEDURE: CT Angio Chest INDICATIONS: Left pleuritic chest pain with active cancer, PE p CONTRAST: omni 300 80ml TECHNIQUE: After the administration of intravenous contrast, 2 mm axial images were acquired from the pulmonary apices to the posterior costophrenic angles during the arterial phase. In addition, 1 mm lung kernel and 5 mm soft tissue kernel reconstructions were performed. 3-dimensional coronal oblique maximum int ensity projection (MIP) reformats, 8 mm axial MIP, and 5 mm coronal and sagittal MPR reformats were t hen performed through the thorax. For radiation dose reduction, the following was used: automated exp osure control, adjustment of mA and/or kV according to patient size. COMPARISON: None. FINDINGS: Image quality: Excellent. Large vessels: Normal caliber pulmonary arterial tree and no filling defects to suggest embolus. Norm al caliber thoracic aorta. No acute aortic syndrome. Lungs and pleura: Posterior medial bilateral lower lobe airspace consolidations with air bronchogram s and small bilateral pleural effusions. No pneumothorax. No suspicious pulmonary nodules which requ gurpreet follow up. Mediastinum: Heart size is normal. No pericardial effusion. No large vessel abnormality. No mediastin al adenopathy by size criteria. Chest wall and lower neck: Right chest Mediport. Diminutive thyroid gland. No axillary or supraclavic ular adenopathy by size. Bones: There is extensive sclerotic metastatic disease throughout the osseous structures of the spine , several rib arcs, in the clavicles, and in the manubrium. No fractures identified. Upper Abdomen: Unremarkable. IMPRESSION: No pulmonary embolus. Bilateral posterior medial lower lobe pneumonia with pleural effusion. Sclerotic osseous metastatic disease. Reviewed by: Ericka Garzon MD on 12/28/2023 2:48 PM PDT Approved by: Ericka Garzon MD on 12/28/2023 2:48 PM PDT Station ID: [id number]
[2023-12-28] MEDS: AMOX/CLAV 875 MG/125 MG TABLET PO STA (15:10)
[2023-12-28] MEDS: AZITHROMYCIN 250 MG TABLET PO STA (15:11)
--- NOTE | 2023-12-28 15:38 | HISTORY & PHYSICAL EXAMINATION ---
Chief Complaint Chief Complaint Chief Complaint: Chest pain History of Present Illness Admitted From Admitted From:: ED History Obtained From Records Reviewed: yes History obtained from: Patient Exam Limitations: None History of Present Illness HPI Comment/Other: 63-year-old male with PMH significant for metastatic prostate cancer being seen by Dr. Hart. He is not on chemo right now, but was most recently on Zytiga. He was in the ER earlier this month for pleuritic chest pain and was found to have bony mets to the ribs and pleural effusion. He was given a transfusion of blood for anemia and was sent home. His pain improved after that, but now he presents to the ER with left anterior chest wall pain worse with inspiration without dyspnea. Denies fever/chills. He attempted taking his home as needed oxycodone in addition to his long-acting opiate pain management without effect In the ER, CT chest was performed which showed bilateral posterior medial lower lobe pneumonia with pleural effusion as well as sclerotic osseous metastatic disease. He was initially given p.o. antibiotics and was going to be discharged home when his O2 dropped to 86% on room air. At that time, hospitalist was contacted for admission for acute respiratory failure with hypoxia Meds/Allgy Home Medications Ambulatory Orders Medication Instructions Recorded Confirmed enzalutamide 80 mg tablet 160 mg (2 x 80 mg) PO QDAY #60 tabs 12/21/23 12/21/23 abiraterone 250 mg tablet (Zytiga) 1,000 mg PO QDAY 12/22/23 atorvastatin 40 mg tablet (Lipitor) 40 mg PO QDAY 12/22/23 latanoprost (PF) 0.005 % eye drops 150 drp ophthalmic (eye) DAILY 12/22/23 latanoprost 0.005 % eye drops 1 drp ophthalmic (eye) QPM 12/22/23 levothyroxine 50 mcg tablet 50 mcg PO QDAY 12/22/23 morphine 30 mg tablet,extended 30 mg PO Q8H Pain 12/22/23 release multivitamin 1 tab PO QDAY 12/22/23 naloxone 4 mg/actuation nasal 4 mg intranasal Q3M PRN opioid 12/22/23 spray (Narcan) overdose ondansetron HCl 8 mg tablet 8 mg PO .Q6 hours PRN Nausea / 12/22/23 Vomiting prednisone 5 mg tablet 5 mg PO BID 12/22/23 pregabalin 25 mg capsule 25 mg PO TID 12/22/23 tamsulosin 0.4 mg capsule 0.8 mg PO QDAY 12/22/23 venlafaxine 75 mg tablet 75 mg PO BID 12/22/23 methylphenidate HCl 10 mg tablet 15 mg (1.5 x 10 mg) PO BID fatigue 12/23/23 12/23/23 #45 tabs morphine 15 mg tablet,extended 15 mg PO TID #45 tabs 12/23/23 12/23/23 release (MS Contin) oxycodone 5 mg tablet 5 - 15 mg (1 - 3 x 5 mg) PO .every 12/23/23 12/23/23 three hours PRN pain #240 tabs prednisone 5 mg tablet 5 mg PO BID #60 tabs 12/23/23 12/23/23 amoxicillin-potassium clavulanate 1 tab PO BID #10 tabs 12/28/23 1,000 mg-62.5 mg tablet,ext.rel 12hr (Augmentin XR) azithromycin 250 mg tablet 250 mg PO DAILY 4 days #4 tabs 12/28/23 Allergies Allergies Allergy/AdvReac Type Severity Reaction Status Date / Time No Known Drug Allergies Allergy Verified 12/28/23 12:02 [facility] Medical History Medical History (Updated 12/28/23 @ 15:37 by Zia Goddard MD) Tonsil cancer Surgical History Surgical History (Updated 12/28/23 @ 12:01 by Zuly Donis, RN, BSN) History of insertion of central venous access port Family History Family History (Updated 12/28/23 @ 17:56 by Conrad Grey DNP) Father Cancer Mother Cancer Social History Social History Smoking Status: Never smoker Relationship: Do you feel safe in your home environment?: Yes Suffered physical, verbal, emotional, or financial abuse?: No POLST Patient has POLST: No Review of Systems Status of ROS: 10 or more systems reviewed and unremarkable except as noted in history and below Constitutional Denies: Fever or Chills Cardiovascular Reports: chest pain; Denies: Irregular heart rate, palpitations, swelling of feet/ankles or shortness of breath with exertion Respiratory Denies: Shortness of breath, Cough or Sputum production Gastrointestinal Denies: Abdominal pain or Abdominal distention Genitourinary Denies: Painful urination Musculoskeletal Denies: Back pain Neurological Denies: Headache, General weakness or Focal weakness Endocrine Denies: Excessive urination Prior Level of Functionality: Lives at home with Exam Constitutional normal general appearance, no apparent distress and average body habitus Neck/C-Spine visual inspection normal Chest inspection of chest normal Chest tender to palpation Respiratory breath sounds equal bilaterally and clear to auscultation bilaterally Cardiovascular normal heart rate noted and murmur noted (systolic) Gastrointestinal abdomen normal to inspection and abdomen soft to palpation Genitourinary bladder normal to palpation Extremities normal to inspection Neurology manager strategic alliances II-XII intact and no movement abnormality noted Skin skin color normal and no rash Conclusion/Plan Problem List (1) Respiratory failure: Plan: Walking desat test Pain management for cancer associated pain Consult pain management, who he is already following Dilaudid 0.5 mg IV as needed severe pain in addition to home pain regimen Antibiotics as below O2 monitoring per protocol Qualifiers: Chronicity: acute Respiratory failure complication: hypoxia Qualified Code(s): J96.01 - Acute respiratory failure with hypoxia (2) Cancer associated pain: Plan: Continue home long-acting morphine 30 mg 3 times daily +15 mg at night Dilaudid 0.5 mg IV as needed Pain appears to be mostly well-controlled at time of my interview, but as I left the room, patient hiccups and was visibly in pain, with poor inspiratory effort associated with this Add lidocaine patch, attempt nonpharmacologic remedies in addition to his narcotic pain regimen No EKG changes, chest pain likely from metastatic disease Discussed case with palliative care team, they recommend changing prednisone to 4 mg Decadron every morning 2.5 mg methadone 3 times daily Hold scheduled MS Contin after tonight's dose as methadone will have reach therapeutic levels by then Palliative care to follow-up in morning (3) Pneumonia: Plan: Rocephin 1 g daily x 5 days IV Azithromycin 500 mg IV ordered in ER, will give 2 more days of 500 mg p.o. Qualifiers: Laterality: left Lung location: lower lobe of lung Pneumonia type: due to unspecified organism Qualified Code(s): J18.9 - Pneumonia, unspecified organism (4) Prostate cancer metastatic to bone: Plan: Not currently on active chemotherapy, follow-up outpatient for management of cancer Plan Admitting patient for pain management and IV antibiotics for his pneumonia Patient wishes to remain full code, and his is his contact POLST form provided to patient and at bedside reports having an advance directive, she is going home today to find that and bring it to us Lab Results Lab results reviewed: Yes 12/28/23 12:40 12/28/23 12:40 Diagnostic Imaging Results Diagnostic Imaging Results: positive Final report reviewed EKG Results EKG Interpreted Independently: Yes EKG Findings: Minimal, nonspecific T wave abnormalities in anterolateral leads Core Measures Anticipated LOS I expect patient to be DC'd or transferred within 96 hours.: Yes Issues Hospital Issues and Management Plan: Pain management, O2 monitoring DVT/VTE - Prophylaxis VTE/DVT Device ordered at admit?: No VTE/DVT Prophylaxis med ordered at admit?: Yes
[2023-12-28] MEDS: cefTRIAXone 1 GM VIAL IVP STA (15:51)
[2023-12-28] MEDS: AZITHROMYCIN INJ 500 MG in SODIUM CHLORIDE 0.9% 250 ML IV STA (15:52)
[2023-12-28] MEDS: HYDROmorphone 1 MG/ML CARPUJECT IVP STA (15:52)
[2023-12-28] MEDS: iohexoL-300 100 ML VIAL IVP ONE (17:12)
[2023-12-28] MEDS ORDERED: SODIUM CHLORIDE FLUSH 0.9% 10 ML SYRINGE IVP PRN (17:26)
[2023-12-28] MEDS ORDERED: ONDANSETRON ODT 4 MG TABLET TL PRN (17:26)
[2023-12-28] MEDS ORDERED: ONDANSETRON 4 MG/2 ML VIAL IVP PRN (17:26)
[2023-12-28] MEDS: SODIUM CHLORIDE FLUSH 0.9% 10 ML SYRINGE IVP SCH (17:52)
[2023-12-28] MEDS: oxyCODONE 5 MG TABLET PO PRN (19:16)
[2023-12-28] MEDS: HYDROmorphone 0.5 MG/0.5 ML SYRINGE IVP PRN (19:17)
[2023-12-28] MEDS ORDERED: predniSONE 5 MG TABLET PO SCH (21:00)
[2023-12-28] MEDS: MORPHINE ER 15 MG TABLET PO SCH (21:15)
[2023-12-28] MEDS: MORPHINE SULFATE ER 30 MG TABLET PO SCH (21:16)
[2023-12-28] MEDS: METHYLPHENIDATE 5 MG TABLET PO SCH (21:35)
[2023-12-28] MEDS: METHADONE 5 MG TABLET PO SCH (21:36)
[2023-12-28] MEDS ORDERED: MORPHINE ER 15 MG TABLET PO SCH (22:00)
[2023-12-29] MEDS: DEXAMETHASONE 4 MG/ML VIAL IVP SCH (09:24)
[2023-12-29] MEDS: ENOXAPARIN 40 MG/0.4 ML SYRINGE SUBQ SCH (09:24)
[2023-12-29] MEDS: ENZALUTAMIDE 80 MG PO SCH (09:24)
[2023-12-29] MEDS: cefTRIAXone 1 GM VIAL IVP SCH (11:30)
--- NOTE | 2023-12-29 11:33 | PHARMACY PROGRESS NOTE ---
Best Possible Medication History Admit Date and Time: 12/28/23 [id number] Processed by: Pharmacy Medications reviewed in ED?: Yes Medication History completed: Yes Patient Interview: Completed Secondary Source(s): Pharmacy records and Insurance records [facility] Statement: As the person ultimately responsible for medication therapy, providers are able to order a medication from an existing home medication list in [facility] via the "Reconcile Routine" prior to Confirmation of that medication by user support analyst supervisor. Such practice is discouraged except when the physician, in their clinical judgment, deems that a medical need exists for a medication without regard to previous use.
[2023-12-29] MEDS: oxyCODONE 5 MG TABLET PO PRN (11:34)
--- NOTE | 2023-12-29 11:35 | PROVIDER PROGRESS NOTE ---
Documented by User: Yelena Pritchett 12/29/23 12:11 Subjective Prog Note Date Prog Note Date: 12/29/23 Prog Note Time: 10:30 Subjective Pt reports feeling: No change Subjective: Patient states that rib pain remains unchanged. Patient states that the pain is radiating in his shoulder and he would like a sling for comfort. Patient told that PT will come by later today to give him a sling for comfort. Patient told that he will be receiving oxycodone as well as methadone from palliative care for long-term pain management at home. Patient told he is also receiving antibiotics for his double pneumonia. Patient's asked about prior hemoglobin from yesterday being 7.6 and if they could have a transfusion. Patient stated that he received a transfusion at a prior visit when he felt similar and felt said that it made him feel better. We ordered a repeat CBC today and will determine if he meets protocol for a transfusion today. Patient stated they also filled out their advance directives and POLST form and give it to the director of social media marketing. Current Medications Current Medications Current Medications: Current Medications Generic Name Dose Route Start Last Admin Trade Name Freq PRN Reason Stop Dose Admin Azithromycin 500 mg 12/29/23 11:00 Azithromycin 250 Mg Tablet PO 12/31/23 10:59 DAILY MELA Ceftriaxone Sodium 1 gm 12/29/23 11:00 Ceftriaxone 1 Gm Vial IVP 01/02/24 10:59 DAILY MELA Dexamethasone 4 mg 12/29/23 09:00 12/29/23 09:24 Dexamethasone 4 Mg/Ml Vial IVP 4 mg DAILY MELA Administration Enoxaparin Sodium 40 mg 12/29/23 09:00 12/29/23 09:24 Enoxaparin 40 Mg/0.4 Ml Syringe SUBQ 40 mg DAILY MELA Administration Hydromorphone HCl 0.5 mg 12/28/23 17:26 12/29/23 09:28 Hydromorphone 0.5 Mg/0.5 Ml Syringe IVP 0.5 mg Q2H PRN Administration Pain 8 to 10 Methadone HCl 2.5 mg 12/28/23 22:00 12/29/23 06:56 Methadone 5 Mg Tablet PO Not Given TID MELA Methylphenidate HCl 15 mg 12/28/23 21:00 12/29/23 06:00 Methylphenidate 5 Mg Tablet PO 15 mg BID MELA Administration Ondansetron HCl 4 mg 12/28/23 17:26 Ondansetron 4 Mg/2 Ml Vial IVP Q6HR PRN Nausea / Vomiting Ondansetron HCl 4 mg 12/28/23 17:26 Ondansetron Odt 4 Mg Tablet TL Q6HR PRN Nausea / Vomiting Oxycodone HCl 10 mg 12/29/23 10:41 Oxycodone 5 Mg Tablet PO Q3HR PRN Pain 5 to 7 Patient Own Med ( 2 each 12/29/23 09:00 12/29/23 09:24 Enzalutamide 80 Mg PO Not Given Tablet) DAILY MELA Sodium Chloride 10 ml 12/28/23 17:26 Sodium Chloride Flush 0.9% 10 Ml Syringe IVP PRN PRN NEEDED PER PROVIDER ORDERS Sodium Chloride 10 ml 12/28/23 17:26 12/29/23 09:25 Sodium Chloride Flush 0.9% 10 Ml Syringe IVP 10 ml 0100,0900,1700 MELA Administration Objective Vital Signs/Intake & Output Reviewed Vital Signs: Yes Vital Signs: Vital Signs x48h Temp Pulse Resp BP Pulse Ox O2 Flow Rate 12/29/23 08:11 37 C 92 H 20 112/62 92 2.5 Intake & Output: Intake & Output 12/27/23 12/28/23 12/29/23 12/30/23 05:59 05:59 05:59 05:59 Intake Total 790 / 790 Balance 790 / 790 Weight (kg) 81.647 kg Objective General Appearance: positive No acute distress and Alert Eyes Bilateral: positive PERRL ENT: positive ENT inspection nml Neck: positive Nml inspection Respiratory: positive Other (lower right lobe absent breath sounds due to effusion) Cardiovascular: positive Regular rate & rhythm Abdomen: positive Nml bowel sounds and Guarding Rectal: positive Non-tender Back: positive Nml inspection Skin: positive Color nml Extremities: positive Non-tender Neurologic/Psychiatric: positive Oriented x3 Lab Results 12/29/23 12:11 12/29/23 12:11 Other Labs: Lab Results x24hrs 12/28/23 12/28/23 Range/Units 15:43 12:40 WBC 6.5 (4.8-10.8) x10^3/uL RBC 2.77 L (4.70-6.10) 10^6/uL Hgb 7.6 L (14.0-18.0) g/dL Hct 25.5 L (42.0-52.0) % MCV 92.1 (80.0-94.0) fL MCH 27.4 (27.0-31.0) pg MCHC 29.8 L (32.0-36.0) g/dL RDW 17.4 H (12.0-15.0) % Plt Count 279 (130-450) 10^3/uL MPV 8.3 (7.4-11.4) fL Neut # (Auto) 5.2 (1.5-6.6) 10^3/uL Lymph # (Auto) 0.4 L (1.5-3.5) 10^3/uL [place] # (Auto) 0.8 (0.0-1.0) 10^3/uL Eos # (Auto) 0.0 (0.0-0.7) 10^3/uL Baso # (Auto) 0.0 (0.0-0.1) 10^3/uL Absolute Nucleated RBC 0.00 x10^3/uL Nucleated RBC % 0.0 /100WBC Sodium 132 L (135-145) mmol/L Potassium 3.8 (3.5-4.5) mmol/L Chloride 97 L (101-111) mmol/L Carbon Dioxide 28 (21-32) mmol/L Anion Gap 7.0 (6-13) BUN 10 (6-20) mg/dL Creatinine 0.6 (0.6-1.3) mg/dL Estimated GFR (MDRD) 135 (>89) Glucose 130 H (74-104) mg/dL Lactic Acid 1.0 (0.5-2.2) mmol/L Calcium 8.7 (8.5-10.3) mg/dL Total Bilirubin 0.5 (0.2-1.0) mg/dL AST 40 (10-42) IU/L ALT 26 (10-60) IU/L Alkaline Phosphatase 753 H (42-121) IU/L Troponin I High Sens 4.1 (2.3-19.7) ng/L Total Protein 6.7 (6.4-8.9) g/dL Albumin 3.3 (3.2-5.5) g/dL Globulin 3.4 (2.1-4.2) g/dL Albumin/Globulin Ratio 1.0 (1.0-2.2) Lipase < 10 L (11-82) U/L ABX Reporting Has patient been on IV antibiotics over the past 48 hours?: Yes Sepsis Event Note (H) Evaluation Current Stage of Sepsis: Ruled out Assessment/Plan Problem List (1) Respiratory failure: Impression: Plan: Pain management for cancer associated pain - Dilaudid 05 mg IV as needed for severe pain in addition to home medications Antibiotics for pneumonia 02 per protocol Walking desat test Qualifiers: Chronicity: acute Respiratory failure complication: hypoxia Qualified Code(s): J96.01 - Acute respiratory failure with hypoxia (2) Cancer associated pain: Impression: Continue home long-acting morphine 30 mg 3 times a day and 15 mg at night Dilaudid 0.5 mg IV PRN (3) Pneumonia: Impression: IV Rocephin 1 g daily for 5 days Azithromycin 500 mg IV ordered in ER, will give 2 more days of 500 mg PO Qualifiers: Laterality: left Lung location: lower lobe of lung Pneumonia type: due to unspecified organism Qualified Code(s): J18.9 - Pneumonia, unspecified organism (4) Prostate cancer metastatic to bone: Impression: Not currently on chemotherapy. Follow up outpatient for cancer management. Documented by User: Conrad Grey DNP 12/29/23 15:30 Objective Lab Results 12/29/23 12:11 12/29/23 12:11 Assessment/Plan Problem List (1) Respiratory failure: Qualifiers: Chronicity: acute Respiratory failure complication: hypoxia Qualified Code(s): J96.01 - Acute respiratory failure with hypoxia (2) Cancer associated pain: (3) Pneumonia: Qualifiers: Laterality: left Lung location: lower lobe of lung Pneumonia type: due to unspecified organism Qualified Code(s): J18.9 - Pneumonia, unspecified organism (4) Prostate cancer metastatic to bone:
[2023-12-29] MEDS: AZITHROMYCIN 250 MG TABLET PO SCH (11:38)
[2023-12-29] MEDS ORDERED: NALOXONE HCL NASAL SPRAY KIT NAS PRN (12:07)
[2023-12-29] MEDS ORDERED: ONDANSETRON ODT 4 MG TABLET PO PRN (12:07)
[2023-12-29 12:19] LABS: ABSOLUTE RETICS # AUTO 0.043 10^6/uL (0.020-0.110); BASOPHILS % (AUTO) 0.3 %; EOSINOPHILS % (AUTO) 0.3 %; HCT - HEMATOCRIT 26.6 % (42.0-52.0); HGB - HEMOGLOBIN 8.1 g/dL (14.0-18.0); LYMPHOCYTES # (AUTO) 0.4 10^3/uL (1.5-3.5); LYMPHOCYTES % (AUTO) 5.5 %; MEAN CORPUSCULAR HEMOGLOBIN 27.9 pg (27.0-31.0); MEAN CORPUSCULAR HGB CONC 30.5 g/dL (32.0-36.0); MEAN CORPUSCULAR VOLUME 91.7 fL (80.0-94.0); MEAN PLATELET VOLUME 8.2 fL (7.4-11.4); MONOCYTES # (AUTO) 0.5 10^3/uL (0.0-1.0); MONOCYTES % (AUTO) 6.4 %; NEUTROPHILS # (AUTO) 6.1 10^3/uL (1.5-6.6); NEUTROPHILS % (AUTO) 86.6 %; PLT - PLATELET COUNT 292 10^3/uL (130-450); RED BLOOD COUNT 2.89 10^6/uL (4.70-6.10); RED CELL DISTRIBUTION WIDTH 17.6 % (12.0-15.0); RETICULOCYTE COUNT % (AUTO) 1.48 % (0.5-2.3)
[2023-12-29 12:35] LABS: % IRON SATURATION 19 % (20-50); CALCIUM 8.9 mg/dL (8.5-10.3); CREATININE 0.5 mg/dL (0.6-1.3); IRON 41 ug/dL (50-212); POTASSIUM 4.2 mmol/L (3.5-4.5); TOTAL IRON BINDING CAPACITY 211 ug/dL (250-450); TRANSFERRIN 151 mg/dL (203-362)
[2023-12-29] MEDS: polyethylene glycoL 3350 17 GM PACKET PO SCH (14:20)
[2023-12-29] MEDS: LEVOTHYROXINE 25 MCG TABLET PO SCH (14:20)
[2023-12-29] MEDS: PREGABALIN 25 MG CAPSULE PO SCH (14:21)
--- NOTE | 2023-12-29 15:14 | CONSULTATION NOTE ---
Referring Provider Name of Referring Provider:: Hospitalist Service Consult Date: 12/29/23 Chief Complaint Chief Complaint Chief Complaint: Cancer pain History of Present Illness Admitted From Admitted From:: Home History Obtained From History obtained from: Patient, spouse History of Present Illness HPI Comment/Other: 63 yo male w/HLD, hypothyroidism, remote tonsil CA (remission) and metastatic prostate cancer admitted yesterday w/bilateral pneumonia. He has had increasing pain recently that has proven difficult to control. He has been on MSER 30 q am/mid day and 45 qpm. He also takes oxycodone 5-15 mg q3PRN pain. He notes that he had been on prednisone with his chemo but his oncologist d/c'd it after he completed his most recent cycle. About a week ago, Julissa Ford (who he has been seeing for Palliative Care support) advised him to go back on prednisone d/t worsening pain. He got some relief, but not enough. He has had so much pain, he has been laying in bed for the past 3-4 days. He came to the ED yesterday d/t worsening pleuritic chest pain. He was found to have bilateral pneumonia. Initially, he was going to be d/c'd home, but was notably hypoxic and was subsequently admitted. After brief consultation yesterday, I recommended initiation of methadone 2.5 mg po TID to start at dinnertime yesterday and to overlap w/dinner and bedtime doses of MSER. After that, the MSER was to be d/c'd. Also recommended transitioning from prednisone to dex 4 mg daily for pain/appetite/energy. This am, Joel reports he is feeling a bit better. He is less painful overall. No side effects from the methadone. He notes he was not getting the oxycodone for breakthrough the same way he takes it at home. At home, he takes 5-15 mg po q3PRN. He usually takes 10 mg at a time. Here he was getting 5 mg po q4PRN. Meds/Allgy Home Medications Ambulatory Orders Medication Instructions Recorded Confirmed enzalutamide 80 mg tablet 160 mg (2 x 80 mg) PO QDAY #60 tabs 12/21/23 12/29/23 atorvastatin 40 mg tablet (Lipitor) 40 mg PO QPM 12/22/23 12/29/23 levothyroxine 50 mcg tablet 50 mcg PO QDAY 12/22/23 12/29/23 morphine 30 mg tablet,extended 30 mg PO Q8H Pain 12/22/23 12/29/23 release ondansetron HCl 8 mg tablet 8 mg PO .Q6 hours PRN Nausea / 12/22/23 12/29/23 Vomiting pregabalin 25 mg capsule 25 mg PO TID 12/22/23 12/29/23 tamsulosin 0.4 mg capsule 0.8 mg PO QPM 12/22/23 12/29/23 venlafaxine 75 mg tablet 75 mg PO BID 12/22/23 12/29/23 methylphenidate HCl 10 mg tablet 15 mg (1.5 x 10 mg) PO BID fatigue 12/23/23 12/29/23 #45 tabs morphine 15 mg tablet,extended 15 mg PO TID #45 tabs 12/23/23 12/29/23 release (MS Contin) prednisone 5 mg tablet 5 mg PO BID #60 tabs 12/23/23 12/29/23 amoxicillin-potassium clavulanate 1 tab PO BID #10 tabs 12/28/23 1,000 mg-62.5 mg tablet,ext.rel 12hr (Augmentin XR) azithromycin 250 mg tablet 250 mg PO DAILY 4 days #4 tabs 12/28/23 [id number] 300 mcg-K 60 1 tab PO DAILY 12/29/23 12/29/23 mcg-lycop 600 mcg-lutein 300 mcg tablet (Centrum Silver Ultra Men's) oxycodone 5 mg tablet 5 - 15 mg PO TID PRN pain 12/29/23 12/29/23 Allergies Allergies Allergy/AdvReac Type Severity Reaction Status Date / Time No Known Drug Allergies Allergy Verified 12/28/23 12:02 [facility] Medical History Medical History (Updated 12/29/23 @ 15:29 by Jessica Anderson MD) Hyperlipidemia Hypothyroidism Anemia Prostate cancer metastatic to bone Prostate cancer Cancer associated pain Respiratory failure Tonsil cancer Surgical History Surgical History History of insertion of central venous access port Family History Family History Father Cancer Mother Cancer Social History Social History Smoking Status: Never smoker Relationship: Level: Independent Do you feel safe in your home environment?: Yes Suffered physical, verbal, emotional, or financial abuse?: No POLST Patient has POLST: No Results Lab Results Lab results reviewed: Yes 12/29/23 12:11 12/29/23 12:11 Other Lab Results: Lab Results x24hrs 12/29/23 12/29/23 12/28/23 Range/Units 12:11 12:11 15:43 WBC 7.0 (4.8-10.8) x10^3/uL RBC 2.89 L 2.90 L (4.70-6.10) 10^6/uL Hgb 8.1 L (14.0-18.0) g/dL Hct 26.6 L (42.0-52.0) % MCV 91.7 (80.0-94.0) fL MCH 27.9 (27.0-31.0) pg MCHC 30.5 L (32.0-36.0) g/dL RDW 17.6 H (12.0-15.0) % Plt Count 292 (130-450) 10^3/uL MPV 8.2 (7.4-11.4) fL Reticulocyte % (Auto) 1.48 (0.5-2.3) % Neut # (Auto) 6.1 (1.5-6.6) 10^3/uL Lymph # (Auto) 0.4 L (1.5-3.5) 10^3/uL [place] # (Auto) 0.5 (0.0-1.0) 10^3/uL Eos # (Auto) 0.0 (0.0-0.7) 10^3/uL Baso # (Auto) 0.0 (0.0-0.1) 10^3/uL Absolute Nucleated RBC 0.00 x10^3/uL Nucleated RBC % 0.0 /100WBC Absolute Retic 0.043 (0.020-0.110) 10^6/uL Sodium 133 L (135-145) mmol/L Potassium 4.2 (3.5-4.5) mmol/L Chloride 96 L (101-111) mmol/L Carbon Dioxide 29 (21-32) mmol/L Anion Gap 8.0 (6-13) BUN 10 (6-20) mg/dL Creatinine 0.5 L (0.6-1.3) mg/dL Estimated GFR (MDRD) 167 (>89) Glucose 149 H (74-104) mg/dL Lactic Acid 1.0 (0.5-2.2) mmol/L Calcium 8.9 (8.5-10.3) mg/dL Iron 41 L (50-212) ug/dL TIBC 211 L (250-450) ug/dL % Saturation 19 L (20-50) % Transferrin 151 L (203-362) mg/dL Lactate Dehydrogenase 320 H (140-271) IU/L Vitamin B12 464 (180-914) pg/mL Exam Constitutional normal general appearance, no apparent distress, average body habitus and alert HENMT normocephalic, head/scalp atraumatic and oral mucous membranes normal Respiratory breath sounds unequal (Diminished BS on R, Clear on L), no wheezes, no rales, no retractions and no use of accessory muscles Cardiovascular normal heart rate noted, regular rhythm noted, no gallop, no rub and no murmur Gastrointestinal abdomen normal to inspection, abdomen soft to palpation, nontender to palpation, nondistended and normoactive bowel sounds Extremities normal to inspection, no tenderness and no deformity Neurology no movement abnormality noted, no focal motor deficit noted, speech normal and GCS normal Conclusion/Plan Problem List (1) Pneumonia: Plan: Qualifiers: Laterality: left Lung location: lower lobe of lung Pneumonia type: due to unspecified organism Qualified Code(s): J18.9 - Pneumonia, unspecified organism Plan Admitting patient for pain management and IV antibiotics for his pneumonia Patient wishes to remain full code, and his is his contact POLST form provided to patient and at bedside reports having an advance directive, she is going home today to find that and bring it to us Lab Results Lab results reviewed: Yes 12/29/23 12:11 12/29/23 12:11 Other Other Results/Comments: Assessment/Plan: 1. Metastatic prostate cancer w/bone mets Continue methadone 2.5 mg po TID. Continue oxycodone 10 mg q3 PRN. He has dilaudid available for pain not effective w/methadone and oxycodone. Advised goal pain level is 4 at rest. Expect brief pain spikes w/trips to bathroom. If he is going to be up for longer periods, he should premedicate. IF pain remains high and no meds are available, he should ask for the hospitalist/me to be notified. Reviewed risks/benefits/alternatives to methadone. Continue dexamethasone for bone pain/energy/appetite. Reviewed risks/benefits/alternatives. Continue oxycodone for BTP. Continue lyrica. Could titrate for adjunctive pain mgmt if above not effective, but could be sedating and would need to be done slowly. 2. Constipation Pt reports he takes 9 senna daily. He moves his bowels every 3-5 days. Describes his stool as soft when he goes. Does take miralax and finds it is helpful. Has not had it here. Will add it to his meds here. Discussed adding mag citrate gummy daily as he has had benefit from mag citrate in the past. Also advised to try daily prunes. 3. Bilateral pneumonia Continue antibiotics and supplemental O2. Advised that given he is immunosuppressed, he will take longer to recover and he should given himself marina. 4. Acute hypoxic resp failure Advised he may successfully wean off of O2 or may end up needing to go home w/O2 briefly. 5. Code status Documented as Full. Did not address today. He has had ongoing conversations w/Palliative Care and has a nursing home relationship w/them. Would not be appropriate for me to pursue this discussion today. 6. Prophy On Lovenox 7. Dispo Per Hospitalist service.
[2023-12-29] MEDS: FERROUS SULFATE 325 MG TABLET PO SCH (18:56)
[2023-12-29] MEDS: SENNA 8.6 MG TABLET PO SCH (21:17)
[2023-12-29] MEDS: TAMSULOSIN 0.4 MG CAPSULE PO SCH (21:18)
[2023-12-29] MEDS: ATORVASTATIN 40 MG TABLET PO SCH (21:18)
[2023-12-29] MEDS: VENLAFAXINE 37.5 MG TABLET PO SCH (21:19)
[2023-12-29] MEDS: MULTIVITAMIN TABLET PO SCH (21:30)
[2023-12-30 05:45] LABS: HCT - HEMATOCRIT 26.7 % (42.0-52.0); HGB - HEMOGLOBIN 7.7 g/dL (14.0-18.0); LYMPHOCYTES # (AUTO) 0.4 10^3/uL (1.5-3.5); LYMPHOCYTES % (AUTO) 6.5 %; MEAN CORPUSCULAR HEMOGLOBIN 26.4 pg (27.0-31.0); MEAN CORPUSCULAR HGB CONC 28.8 g/dL (32.0-36.0); MEAN CORPUSCULAR VOLUME 91.4 fL (80.0-94.0); MEAN PLATELET VOLUME 8.4 fL (7.4-11.4); MONOCYTES # (AUTO) 0.6 10^3/uL (0.0-1.0); MONOCYTES % (AUTO) 8.5 %; NEUTROPHILS # (AUTO) 5.6 10^3/uL (1.5-6.6); NEUTROPHILS % (AUTO) 83.9 %; PLT - PLATELET COUNT 350 10^3/uL (130-450); RED BLOOD COUNT 2.92 10^6/uL (4.70-6.10); RED CELL DISTRIBUTION WIDTH 17.2 % (12.0-15.0); WHITE BLOOD COUNT 6.6 x10^3/uL (4.8-10.8)
[2023-12-30 05:59] LABS: CALCIUM 8.5 mg/dL (8.5-10.3); CREATININE 0.5 mg/dL (0.6-1.3); POTASSIUM 4.1 mmol/L (3.5-4.5)
[2023-12-30] MEDS: METHYLPHENIDATE 5 MG TABLET PO SCH (06:28)
[2023-12-30 08:34] VITALS: O2SAT 96
[2023-12-30] MEDS: dexAMETHasone 4 MG TABLET PO SCH (08:39)
[2023-12-30] MEDS ORDERED: MV MIN FOLIC K1 LYCOPEN LUTEIN PO SCH (09:00)
[2023-12-30] MEDS ORDERED: [UNRECOGNIZED DRUG - OTHER] PO SCH (09:00)
--- NOTE | 2023-12-30 09:49 | PROVIDER PROGRESS NOTE ---
Subjective Prog Note Date Prog Note Date: 12/30/23 Prog Note Time: 09:47 Subjective Pt reports feeling: Improved Subjective: Hospice service covering for palliative care. Consulted for pain management recommendations. See Dr Anderson's note from 12/28. Changed ER morphine to methadone 2.5 mg TID, changed prednisone to decadron 4 mg daily. Continue PO oxycodone 10 mg q3hr prn pain. Pt feels the new pain management plan is working well. His pain is 1/10. He is able to breathe more comfortably though still endorses L chest to shoulder pain with breathing and coughing. Back pain from mets is minimal - he is able to sit up in bed easily. Has not required IV dilaudid since yesterday. Current Medications Current Medications Current Medications: Current Medications Generic Name Dose Route Start Last Admin Trade Name Freq PRN Reason Stop Dose Admin Atorvastatin Calcium 40 mg 12/29/23 21:00 12/29/23 21:18 Atorvastatin 40 Mg Tablet PO 40 mg QPM MELA Administration Azithromycin 500 mg 12/29/23 11:00 12/30/23 08:39 Azithromycin 250 Mg Tablet PO 12/31/23 10:59 500 mg DAILY MELA Administration Ceftriaxone Sodium 1 gm 12/29/23 11:00 12/30/23 08:39 Ceftriaxone 1 Gm Vial IVP 01/02/24 10:59 1 gm DAILY MLEA Administration Dexamethasone 4 mg 12/30/23 09:00 12/30/23 08:39 Dexamethasone 4 Mg Tablet PO 4 mg DAILY MELA Administration Enoxaparin Sodium 40 mg 12/29/23 09:00 12/30/23 08:38 Enoxaparin 40 Mg/0.4 Ml Syringe SUBQ 40 mg DAILY MELA Administration Ferrous Sulfate 325 mg 12/29/23 16:00 12/30/23 08:39 Ferrous Sulfate 325 Mg Tablet PO 325 mg DAILYWM MELA Administration Hydromorphone HCl 0.5 mg 12/28/23 17:26 12/29/23 12:18 Hydromorphone 0.5 Mg/0.5 Ml Syringe IVP 0.5 mg Q2H PRN Administration Pain 8 to 10 Levothyroxine Sodium 50 mcg 12/29/23 13:00 12/30/23 06:22 Levothyroxine 25 Mcg Tablet PO 50 mcg QDAC MELA Administration Methadone HCl 2.5 mg 12/28/23 22:00 12/30/23 06:19 Methadone 5 Mg Tablet PO 2.5 mg TID MELA Administration Methylphenidate HCl 15 mg 12/30/23 06:00 12/30/23 06:28 Methylphenidate 5 Mg Tablet PO 15 mg 0600,1400 MELA Administration Multivitamins 1 tab 12/29/23 22:00 12/30/23 08:39 Multivitamin Tablet PO 1 tab DAILYWM MELA Administration Ondansetron HCl 4 mg 12/28/23 17:26 Ondansetron 4 Mg/2 Ml Vial IVP Q6HR PRN Nausea / Vomiting Ondansetron HCl 8 mg 12/29/23 12:07 Ondansetron Odt 4 Mg Tablet PO .Q6 hours PRN Nausea / Vomiting Oxycodone HCl 10 mg 12/29/23 10:41 12/30/23 09:29 Oxycodone 5 Mg Tablet PO 10 mg Q3HR PRN Administration Pain 5 to 7 Patient Own Med ( 2 each 12/29/23 09:00 12/30/23 08:47 Enzalutamide 80 Mg PO Not Given Tablet) DAILY MELA Polyethylene Glycol 17 gm 12/29/23 13:00 12/30/23 08:38 Polyethylene Glycol 3350 17 Gm Packet PO 17 gm DAILY MELA Administration Pregabalin 25 mg 12/29/23 14:00 12/30/23 06:21 Pregabalin 25 Mg Capsule PO 25 mg TID MELA Administration Senna 8.6 mg 12/29/23 22:00 12/30/23 06:21 Senna 8.6 Mg Tablet PO 8.6 mg TID MELA Administration Sodium Chloride 10 ml 12/28/23 17:26 Sodium Chloride Flush 0.9% 10 Ml Syringe IVP PRN PRN NEEDED PER PROVIDER ORDERS Sodium Chloride 10 ml 12/28/23 17:26 12/30/23 08:39 Sodium Chloride Flush 0.9% 10 Ml Syringe IVP 10 ml 0100,0900,1700 MELA Administration Tamsulosin HCl 0.8 mg 12/29/23 21:00 12/29/23 21:18 Tamsulosin 0.4 Mg Capsule PO 0.8 mg QPM MELA Administration Venlafaxine HCl 75 mg 12/29/23 21:00 12/30/23 08:38 Venlafaxine 37.5 Mg Tablet PO 75 mg BID MELA Administration Objective Vital Signs/Intake & Output Vital Signs: Vital Signs x48h Temp Pulse Resp BP Pulse Ox O2 Flow Rate 12/30/23 08:31 36.7 C 90 18 123/67 96 2 12/30/23 08:20 2.5 Intake & Output: Intake & Output 12/28/23 12/29/23 12/30/23 12/31/23 05:59 05:59 05:59 05:59 Intake Total 790 / 790 360 / 360 Balance 790 / 790 360 / 360 Weight (kg) 81.647 kg Objective Comments/Other: Pt is sitting in bed talking to family and eating breakfast. He is cheerful and alert. Heart RRR + murmur which pt states is not new. Lungs coarse bases but good insp effort and air movement. Lab Results 12/30/23 05:10 12/30/23 05:10 Other Labs: Lab Results x24hrs 12/30/23 12/29/23 12/29/23 Range/Units 05:10 12:11 12:11 WBC 6.6 7.0 (4.8-10.8) x10^3/uL RBC 2.92 L 2.89 L 2.90 L (4.70-6.10) 10^6/uL Hgb 7.7 L 8.1 L (14.0-18.0) g/dL Hct 26.7 L 26.6 L (42.0-52.0) % MCV 91.4 91.7 (80.0-94.0) fL MCH 26.4 L 27.9 (27.0-31.0) pg MCHC 28.8 L 30.5 L (32.0-36.0) g/dL RDW 17.2 H 17.6 H (12.0-15.0) % Plt Count 350 292 (130-450) 10^3/uL MPV 8.4 8.2 (7.4-11.4) fL Reticulocyte % (Auto) 1.48 (0.5-2.3) % Neut # (Auto) 5.6 6.1 (1.5-6.6) 10^3/uL Lymph # (Auto) 0.4 L 0.4 L (1.5-3.5) 10^3/uL [place] # (Auto) 0.6 0.5 (0.0-1.0) 10^3/uL Eos # (Auto) 0.0 0.0 (0.0-0.7) 10^3/uL Baso # (Auto) 0.0 0.0 (0.0-0.1) 10^3/uL Absolute Nucleated RBC 0.00 0.00 x10^3/uL Nucleated RBC % 0.0 0.0 /100WBC Absolute Retic 0.043 (0.020-0.110) 10^6/uL Sodium 137 133 L (135-145) mmol/L Potassium 4.1 4.2 (3.5-4.5) mmol/L Chloride 100 L 96 L (101-111) mmol/L Carbon Dioxide 30 29 (21-32) mmol/L Anion Gap 7.0 8.0 (6-13) BUN 11 10 (6-20) mg/dL Creatinine 0.5 L 0.5 L (0.6-1.3) mg/dL Estimated GFR (MDRD) 167 167 (>89) Glucose 114 H 149 H (74-104) mg/dL Calcium 8.5 8.9 (8.5-10.3) mg/dL Iron 41 L (50-212) ug/dL TIBC 211 L (250-450) ug/dL % Saturation 19 L (20-50) % Transferrin 151 L (203-362) mg/dL Lactate Dehydrogenase 320 H (140-271) IU/L Vitamin B12 464 (180-914) pg/mL Sepsis Event Note (H) Evaluation Current Stage of Sepsis: Ruled out Assessment/Plan Problem List (1) Pneumonia: Impression: Pt with known metastatic prostate cancer admitted for pneumonia and hypoxia. Palliative/hospice consulted for pain management recommendations. Present oral medication plan is working well - methadone, oxycodone, decadron. Pt has not required IV pain medication since yesterday. Per pt and nurse, he may be dc'ed today if not O2 requiring. Recommendation for home is to continue the present pain medications - methadone 2.5 mg TID, oxycodone 10 mg q3hr PRN, decadron 4 mg daily. Hospitalist team to manage discharge planning and prescriptions. Qualifiers: Laterality: left Lung location: lower lobe of lung Pneumonia type: due to unspecified organism Qualified Code(s): J18.9 - Pneumonia, unspecified organism
--- NOTE | 2023-12-30 14:49 | Discharge Summary ---
"Discharge Summary Admit Date: 12/28/23 Discharge Date: 12/30/23 Discharging Provider: Conrad Grey NP Primary Care Provider: Andi Plata Code Status: Attempt Resuscitation DIAGNOSES Admission Diagnoses: Acute respiratory failure with hypoxia Pneumonia due to infectious organism Cancer associated pain Discharge Diagnoses with Status of Each Condition: Acute respiratory failure with hypoxiaresolved Pneumonia due to infectious organismactive Cancer associated painactive HPI History of Present Illness: 63-year-old male with PMH significant for prostate cancer with mets to the bone who has been seen multiple times in the ER for chest wall pain presented to the ER with chest wall pain. While in the ER, he was noted to have low oxygen levels secondary to pain and was also found to have a pneumonia. The decision was made to admit him for pain regimen adjustment as well as IV antibiotics for pneumonia and oxygen support. CONSULTS | PROCEDURES Consultations: Palliative care HOSPITAL COURSE Hospital Course: He was admitted and placed on oxygen, IV antibiotics for his pneumonia. His palliative care team was contacted, and they provided recommendations for further pain management. MS Contin was DC'd, and changed to methadone. His prednisone was DC'd in favor of Decadron. Today, on no O2, stable for discharge ALLERGIES Allergies Allergy/AdvReac Type Severity Reaction Status Date / Time No Known Drug Allergies Allergy Verified 12/28/23 12:02 MEDICATIONS Ambulatory Orders Medication Instructions Recorded Confirmed enzalutamide 80 mg tablet 160 mg (2 x 80 mg) PO QDAY #60 tabs 12/21/23 12/29/23 atorvastatin 40 mg tablet (Lipitor) 40 mg PO QPM 12/22/23 12/29/23 levothyroxine 50 mcg tablet 50 mcg PO QDAY 12/22/23 12/29/23 morphine 30 mg tablet,extended 30 mg PO Q8H Pain 12/22/23 12/29/23 release ondansetron HCl 8 mg tablet 8 mg PO .Q6 hours PRN Nausea / 12/22/23 12/29/23 Vomiting pregabalin 25 mg capsule 25 mg PO TID 12/22/23 12/29/23 tamsulosin 0.4 mg capsule 0.8 mg PO QPM 12/22/23 12/29/23 venlafaxine 75 mg tablet 75 mg PO BID 12/22/23 12/29/23 methylphenidate HCl 10 mg tablet 15 mg (1.5 x 10 mg) PO BID fatigue 12/23/23 12/29/23 #45 tabs morphine 15 mg tablet,extended 15 mg PO TID #45 tabs 12/23/23 12/29/23 release (MS Contin) amoxicillin-potassium clavulanate 1 tab PO BID #10 tabs 12/28/23 1,000 mg-62.5 mg tablet,ext.rel 12hr (Augmentin XR) azithromycin 250 mg tablet 250 mg PO DAILY 4 days #4 tabs 12/28/23 [id number] 300 mcg-K 60 1 tab PO DAILY 12/29/23 12/29/23 mcg-lycop 600 mcg-lutein 300 mcg tablet (Centrum Silver Ultra Men's) oxycodone 5 mg tablet 5 - 15 mg PO TID PRN pain 12/29/23 12/29/23 dexamethasone 4 mg tablet 4 mg PO DAILY 30 days #30 tabs 12/30/23 ferrous sulfate 325 mg (65 mg 325 mg PO DAILYWM #30 tabs 12/30/23 iron) tablet methadone 5 mg tablet 2.5 mg (1/2 x 5 mg) PO TID 5 days 12/30/23 #8 tabs PHYSICAL EXAM AT DISCHARGE General Appearance: positive No acute distress Eyes Bilateral: positive Normal inspection ENT: positive ENT inspection nml Neck: positive Nml inspection Respiratory: positive No respiratory distress; negative Chest non-tender (Tenderness around bony mets) Cardiovascular: positive Regular rate & rhythm Peripheral Pulses: positive 2+ Abdomen: positive Non-tender Rectal: positive Non-tender Back: positive Nml inspection Skin: positive Color nml Extremities: positive Non-tender Neurologic/Psychiatric: positive Oriented x3 LABS 12/30/23 05:10 12/30/23 05:10 DIAGNOSTIC IMAGING Diagnostic Imaging Results: Final report reviewed Diagnostic Imaging Results Comments: CTA chest No PE, bilateral posterior medial lower lobe pneumonia, pleural effusion, sclerotic osseous metastatic disease SEPSIS Current Stage of Sepsis: Ruled out FOLLOW UP Follow Up: With PCP, palliative care team TIME SPENT Time Spent in Discharge (Minutes): 35 Discharge Plan Discharge Patient Disposition: USP, Self Care Condition: Serious Prescriptions: New amoxicillin-pot clavulanate [Augmentin XR] 1,000-62.5 mg tablet extended release 12 hr 1 tab PO BID Qty: 10 0RF azithromycin 250 mg tablet 250 mg PO DAILY 4 Days Qty: 4 0RF Rx Instructions: start on day 2 of therapy ferrous sulfate 325 mg (65 mg iron) Tablet 325 mg PO DAILYWM Qty: 30 0RF dexamethasone 4 mg Tablet 4 mg PO DAILY 30 Days Qty: 30 0RF methadone 5 mg Tablet 2.5 mg PO TID 5 Days Qty: 8 0RF Continued tamsulosin 0.4 mg capsule 0.8 mg PO QPM ondansetron HCl 8 mg tablet 8 mg PO .Q6 hours PRN (Reason: Nausea / Vomiting) Centrum Silver Ultra Men's [id number] mcg tablet 1 tab PO DAILY oxycodone 5 mg tablet 5 - 15 mg PO TID PRN (Reason: pain) enzalutamide 80 mg tablet 160 mg PO QDAY Qty: 60 2RF Rx Instructions: Enzalutamide 160 mg oral daily atorvastatin [Lipitor] 40 mg tablet 40 mg PO QPM levothyroxine 50 mcg tablet 50 mcg PO QDAY Patient Comments: TAKE ONE TABLET BY MOUTH ONE TIME DAILY morphine 30 mg tablet extended release 30 mg PO Q8H Patient Comments: Take 1 tablet by mouth twice a day 6am and 2pm then once a day with 15mg tab at 10pm Rx Instructions: Palliative Care Patient pregabalin 25 mg capsule 25 mg PO TID Patient Comments: Take 1 capsule by mouth three times a day at 6am 2pm 10pm venlafaxine 75 mg tablet 75 mg PO BID Patient Comments: TAKE ONE TABLET BY MOUTH TWICE DAILY at 6am and 10pm methylphenidate HCl 10 mg tablet 15 mg PO BID Qty: 45 0RF morphine [MS Contin] 15 mg tablet extended release 15 mg PO TID MDD with 30 mg for = 45 mg Qty: 45 0RF Discontinued prednisone 5 mg tablet 5 mg PO BID Qty: 60 0RF Patient Comments: Taking BID at 6am & 2pm Activity Restrictions: No Restrictions Activity Restrictions/Additional Instructions: It appears today that the increased pain is from a left lower lobe pneumonia. I sent antibiotics to the [facility] in [place]. Call your doctor to arrange a follow-up appointment, make the next available appointment. In the interim, return anytime if worse or if new symptoms develop. Diet: Regular Health Concerns: You are a 63-year-old male with past medical history of prostate cancer which has metastasized to your ribs. You came in with chest pain, as you have before. While in the ER, you were noted to have a low oxygen level and a new pneumonia. You were admitted because of your low oxygen levels. While admitted, we talked with your palliative care provider, and made adjustments to your pain medicine regimen. We are now discharging you on this new regimen plus antibiotics/supplements and you will follow-up with your palliative care team Care Plan Goals: Please stay active is much as possible, as this will help to improve your lung function and clear out that pneumonia. Please reach out to your palliative care team with any needs for pain management Print Language: German Patient Instructions: Pneumonia Dc Stand Alone Forms: PCP List Follow-up Care: ANDI BARONE ARNP [Primary Care Provider] -"
== END 2023-12-30 15:30 | disposition home or self-care (01) | DRG 189 ==
LOC: ED 11:51 → MS2 16:50
PROVIDERS: ADMIT Nurse Practitioner Acute Care; ATTEND Nurse Practitioner Acute Care
DX: C79.51 Secondary malignant neoplasm of bone; E78.5 Hyperlipidemia, unspecified; Z92.21 Personal history of antineoplastic chemotherapy; Z79.891 Long term (current) use of opiate analgesic; J96.01 Acute respiratory failure with hypoxia; Z79.890 Hormone replacement therapy; C61 Malignant neoplasm of prostate; J18.9 Pneumonia, unspecified organism; D63.0 Anemia in neoplastic disease; Z79.899 Other long term (current) drug therapy; G89.3 Neoplasm related pain (acute) (chronic); K59.00 Constipation, unspecified; E03.9 Hypothyroidism, unspecified; J90 Pleural effusion, not elsewhere classified

== ENCOUNTER 2024-02-04 08:56 | Inpatient (IN) ==
--- NOTE | 2024-02-04 09:03 | ED Physician Documentation ---
History of Present Illness Stated complaint Stated Complaint: FALL/WEAKNESS Chief complaint Chief Complaint: General Additonal information Additional information: 63-year-old male with history of pneumonia, hyperlipidemia, anemia, prior tonsil cancer, current prostate cancer presents with confusion and hypoxia. Patient was seen here yesterday with blood transfusion. He states along with family at bedside corroborating history he has had 3 total transfusions in the past. He denies prior blood transfusion reactions. He felt normal on discharge yesterday. This morning, he was very sleepy, generally weak, without focality or new pain. No trauma. No clear fevers or chills. However, while not feeling very short of breath, his oxygen was low in the 80s; he was placed on nasal cannula oxygen, and is not usually on this. He also had some bilateral hand swelling noted by spouse. No other new concerns. There was plan to discuss palliative therapy with oncology today; his current prostate cancer treatments do not appear to have been working. He has a port. No current chemotherapy or radiation. Review of Systems ROS Constitutional: no fever, no chills Eyes: no visual disturbance, no discharge Ears, Nose, Mouth, Throat: no rhinorrhea, no sore throat Cardiovascular: no chest pain, no palpitations Respiratory: no cough, no shortness of breath Gastrointestinal: no abdominal pain, no vomiting, no diarrhea Genitourinary: no dysuria, no hematuria Musculoskeletal: no back pain, no neck stiffness Skin: no rash, no wound Neurological: no focal weakness, no focal numbness Meds/Allgy Home Medications Ambulatory Orders Medication Instructions Recorded Confirmed enzalutamide 80 mg tablet 160 mg (2 x 80 mg) PO QDAY #60 tabs 12/21/23 02/03/24 atorvastatin 40 mg tablet (Lipitor) 40 mg PO QPM 12/22/23 02/03/24 levothyroxine 50 mcg tablet 50 mcg PO QDAY 12/22/23 02/03/24 ondansetron HCl 8 mg tablet 8 mg PO .Q6 hours PRN Nausea / 12/22/23 02/03/24 Vomiting tamsulosin 0.4 mg capsule 0.8 mg PO QPM 12/22/23 02/03/24 venlafaxine 75 mg tablet 75 mg PO BID 12/22/23 02/03/24 [id number] 300 mcg-K 60 1 tab PO DAILY 12/29/23 02/03/24 mcg-lycop 600 mcg-lutein 300 mcg tablet (Centrum Silver Ultra Men's) methylphenidate HCl 10 mg tablet 20 mg (2 x 10 mg) PO BID fatigue 01/15/24 02/03/24 #120 tabs ferrous sulfate 325 mg (65 mg 325 mg PO DAILYWM #90 tabs 01/22/24 02/03/24 iron) tablet dexamethasone 2 mg tablet 2 mg PO QDAY #30 tabs 01/28/24 02/03/24 pregabalin 25 mg capsule 50 mg PO TID 01/28/24 02/03/24 methadone 10 mg tablet 10 mg PO Q8H #90 tabs 01/29/24 02/03/24 oxycodone 10 mg tablet 10 - 20 mg (1 - 2 x 10 mg) PO Q4H 01/29/24 02/03/24 PRN pain #180 tabs Allergies Allergies Allergy/AdvReac Type Severity Reaction Status Date / Time No Known Drug Allergies Allergy Verified 02/03/24 08:54 [facility] Medical History Medical History (Updated 02/04/24 @ 10:50 by Abdullahi Pandey MD) Pneumonia Hyperlipidemia Hypothyroidism Anemia Cancer associated pain Respiratory failure Tonsil cancer Surgical History Surgical History History of insertion of central venous access port Family History Family History Father Cancer Mother Cancer Social History Social History Smoking Status: Never smoker Living arrangement: At home Marital Status: Living Condition: With spouse/s.o. Support Person: Yes Relationship: Level: Independent Do you feel safe in your home environment?: Yes Suffered physical, verbal, emotional, or financial abuse?: No POLST Patient has POLST: No Exam Exam Const: no acute distress, non toxic appearing; calm, conversant, pleasant though intermittently sleepy Eyes: PERRLA, EOMI ENT: mucous membranes moist Neck: supple, non-tender Resp: no respiratory distress, reduced aeration to bilateral bases; on 4L NC, satting mid 90s Card: regular rate and rhythm, no murmurs; port non tender, non erythematous Abd: non tender diffusely, no rigidity or rebound or guarding Back: no T or L spine tenderness, no CVA tenderness bilaterally Extrem: no deformities, no swelling bilateral lower extremities; mild swelling to bilateral hands, non tender Neuro: ANOx4, account services analyst grossly intact, grossly intact sensation and strength all extremities Skin: no rash, warm and dry Results Vitals Vitals: Vital Signs - 24 hr 02/03/24 15:30 02/04/24 09:05 02/04/24 09:11 Temperature 37.7 C 37.7 C Temperature Source Oral Oral Pulse Rate 105 H 106 H Respiratory Rate 25 H 20 Blood Pressure 150/77 H 150/77 H O2 Saturation 92 92 Oxygen Delivery Method O2 Source Room air Nasal cannula Nasal cannula If not protocol: Oxygen Flow, liters/minute 4 4 Pain Intensity 5 8 8 02/04/24 09:12 02/04/24 09:41 02/04/24 09:42 Temperature Temperature Source Pulse Rate Respiratory Rate Blood Pressure O2 Saturation Oxygen Delivery Method Nasal Cannula O2 Source If not protocol: Oxygen Flow, liters/minute 4 Pain Intensity 10 10 02/04/24 09:55 02/04/24 10:19 02/04/24 10:41 Temperature Temperature Source Pulse Rate 101 H Respiratory Rate 20 Blood Pressure 163/89 H O2 Saturation 94 Oxygen Delivery Method O2 Source Nasal cannula If not protocol: Oxygen Flow, liters/minute 4 Pain Intensity 10 4 6 02/04/24 10:43 02/04/24 10:43 02/04/24 10:56 Temperature Temperature Source Pulse Rate Respiratory Rate Blood Pressure O2 Saturation Oxygen Delivery Method O2 Source If not protocol: Oxygen Flow, liters/minute Pain Intensity 9 6 8 02/04/24 11:36 Temperature Temperature Source Pulse Rate Respiratory Rate Blood Pressure O2 Saturation Oxygen Delivery Method O2 Source If not protocol: Oxygen Flow, liters/minute Pain Intensity 8 Oxygen O2 Source Nasal cannula Labs Labs: Laboratory Tests 02/04/24 02/04/24 02/04/24 09:24 09:35 09:50 WBC 5.2 RBC 3.02 L Hgb 8.0 L Hct 27.0 L MCV 89.4 MCH 26.5 L MCHC 29.6 L RDW 18.8 H Plt Count 168 MPV 8.8 Neut # (Auto) 3.7 Lymph # (Auto) 0.6 L Stafford # (Auto) 0.7 Eos # (Auto) 0.0 Baso # (Auto) 0.0 Absolute Nucleated RBC 0.03 Nucleated RBC % 0.6 VBG pH 7.429 H VBG pCO2 40.9 L VBG pO2 46.4 VBG HCO3 26.5 VBG Total CO2 27.7 VBG O2 Saturation 82.2 H VBG Base Excess 2.0 Sodium 135 Potassium 3.9 Chloride 98 L Carbon Dioxide 29 Anion Gap 8.0 BUN 8 Creatinine 0.5 L Estimated GFR (MDRD) 167 Glucose 124 H Lactic Acid 0.9 Calcium 8.0 L Total Bilirubin 0.6 AST 35 ALT 18 Alkaline Phosphatase 936 H B-Natriuretic Peptide 341 H Total Protein 5.9 L Albumin 3.5 Globulin 2.4 Albumin/Globulin Ratio 1.5 Nasal Influenza B PCR Nasal Influenza A PCR Nasal RSV (PCR) Nasal SARS-CoV-2 (PCR) 02/04/24 10:19 WBC RBC Hgb Hct MCV MCH MCHC RDW Plt Count MPV Neut # (Auto) Lymph # (Auto) Stafford # (Auto) Eos # (Auto) Baso # (Auto) Absolute Nucleated RBC Nucleated RBC % VBG pH VBG pCO2 VBG pO2 VBG HCO3 VBG Total CO2 VBG O2 Saturation VBG Base Excess Sodium Potassium Chloride Carbon Dioxide Anion Gap BUN Creatinine Estimated GFR (MDRD) Glucose Lactic Acid Calcium Total Bilirubin AST ALT Alkaline Phosphatase B-Natriuretic Peptide Total Protein Albumin Globulin Albumin/Globulin Ratio Nasal Influenza B PCR NOT DETECTED Nasal Influenza A PCR NOT DETECTED Nasal RSV (PCR) NOT DETECTED Nasal SARS-CoV-2 (PCR) NOT DETECTED PD Medical Decision Making ED course ED course: This patient presents with altered mental status and hypoxia after recent blood transfusion, with a broad differential I have considered including not limited to TACO, TRALI, allergic reaction, analysis, pneumonia, viral syndrome, CO2 narcosis, symptomatic anemia, pleural effusion, pericardial effusion, pneumothorax, among others. Note no focal neurologic deficits or clear pain. No meningeal signs. I am obtaining immediate extensive workup with blood cultures x 2, including one through port discussed with nursing, CBC, CMP, VBG, chest x- ray, viral swab, head CT, BMP, urinalysis. We will closely reassess. I am giving tylenol. Patient on 90mg PO oxycodone at home Qday for bony pain from known mets; this is unchanged. He is requesting pain medication. Giving dilaudid, with pt/family understanding risks. He is moving towards Hospice per report. EKG: Borderline sinus tachycardia without acute ischemia or immediately concerning interval prolongation. Note no chest pain. I agree with radiology reads of imaging on my independent review of imaging. hCT: "FINDINGS: Image quality: Excellent. CSF spaces: Basal cisterns are patent. No extra-axial fluid collections. Ventricles are normal in size and shape. Brain: No midline shift. No intracranial masses or hemorrhage. Bagley-white matter interface is normal. Skull and face: Calvarium and visualized facial bones are intact, without suspicious lesions. Sinuses: Visualized sinuses and mastoids are clear. IMPRESSION: No acute intracranial pathology. Reviewed by: Padilla York MD on 02/04/2024 10:31 AM PST" CXR: "FINDINGS: Surgical changes and devices: Left chest wall port tip projects over the low SVC. Lungs and pleura: New hazy right basilar airspace opacity. Mediastinum: Mediastinal contours appear normal. Heart size is normal. Bones and chest wall: No suspicious bony lesions. Overlying soft tissues appear unremarkable. IMPRESSION: Hazy right airspace opacity, could represent atelectasis or infection. Reviewed by: Padilla York MD on 02/04/2024 9:49 AM PST" Labs: CBC with no leukocytosis, improved anemia, no thrombocytopenia. CMP with increase in what appears a baseline elevated alk phos in the setting of known m etastatic prostate cancer, otherwise overall grossly baseline CMP. BNP elevated to 341. VBG grossly reassuring. I am initiating cefepime/doxy for suspected PNA. Currently, this seems most likely to be driving presentation. TRALI seems much less likely currently; no bilateral infiltrates and timeline does not fit, with what would be a more delayed presentation. Patient overall stable. Ordering dilaudid for intractable pain. I spoke with Dr. aPvon, reviewing case; she kindly accepts admission. Viral swab negative. Discharge Plan Discharge Patient Disposition: 66 [facility] DC/Xfer Condition: Stable Clinical Impression: AMS (altered mental status), Hypoxia Prescriptions: No Action methylphenidate HCl 10 mg tablet 20 mg PO BID Qty: 120 0RF ferrous sulfate 325 mg (65 mg iron) tablet 325 mg PO DAILYWM Qty: 90 0RF methadone 10 mg tablet 10 mg PO Q8H Qty: 90 0RF oxycodone 10 mg tablet 10 - 20 mg PO Q4H PRN (Reason: pain) Qty: 180 0RF Rx Instructions: use for breakthrough pain/ not to exceed 10/ 24 hours tamsulosin 0.4 mg capsule 0.8 mg PO QPM ondansetron HCl 8 mg tablet 8 mg PO .Q6 hours PRN (Reason: Nausea / Vomiting) Centrum Silver Ultra Men's [phone] mcg tablet 1 tab PO DAILY enzalutamide 80 mg tablet 160 mg PO QDAY Qty: 60 2RF Rx Instructions: Enzalutamide 160 mg oral daily atorvastatin [Lipitor] 40 mg tablet 40 mg PO QPM levothyroxine 50 mcg tablet 50 mcg PO QDAY Patient Comments: TAKE ONE TABLET BY MOUTH ONE TIME DAILY venlafaxine 75 mg tablet 75 mg PO BID Patient Comments: TAKE ONE TABLET BY MOUTH TWICE DAILY at 6am and 10pm dexamethasone 2 mg tablet 2 mg PO QDAY Qty: 30 2RF pregabalin 25 mg capsule 50 mg PO TID Patient Comments: Take 1 capsule by mouth three times a day at 6am 2pm 10pm Print Language: Sami
[2024-02-04] MEDS: ACETAMINOPHEN 500 MG TABLET PO STA (09:41)
[2024-02-04] MEDS: oxyCODONE 5 MG TABLET PO STA (09:42)
[2024-02-04 09:50] LABS: BASOPHILS % (AUTO) 0.2 %; EOSINOPHILS % (AUTO) 0.2 %; LYMPHOCYTES # (AUTO) 0.6 10^3/uL (1.5-3.5); LYMPHOCYTES % (AUTO) 11.4 %; MEAN CORPUSCULAR HEMOGLOBIN 26.5 pg (27.0-31.0); MEAN CORPUSCULAR HGB CONC 29.6 g/dL (32.0-36.0); MEAN CORPUSCULAR VOLUME 89.4 fL (80.0-94.0); MEAN PLATELET VOLUME 8.8 fL (7.4-11.4); MONOCYTES # (AUTO) 0.7 10^3/uL (0.0-1.0); MONOCYTES % (AUTO) 13.2 %; NEUTROPHILS # (AUTO) 3.7 10^3/uL (1.5-6.6); NEUTROPHILS % (AUTO) 72.1 %; NRBC ABSOLUTE COUNT (AUTO) 0.03 x10^3/uL; NUCLEATED RED BLOOD CELLS AUTO 0.6 /100WBC; PLT - PLATELET COUNT 168 10^3/uL (130-450); RED BLOOD COUNT 3.02 10^6/uL (4.70-6.10); RED CELL DISTRIBUTION WIDTH 18.8 % (12.0-15.0); WHITE BLOOD COUNT 5.2 x10^3/uL (4.8-10.8)
--- NOTE | 2024-02-04 09:50 | XRAY Report ---
PROCEDURE: XR Chest 1V INDICATIONS: hypoxia, AMS TECHNIQUE: One view of the chest was acquired. COMPARISON: 02/03/2024 FINDINGS: Surgical changes and devices: Left chest wall port tip projects over the low SVC. Lungs and pleura: New hazy right basilar airspace opacity. Mediastinum: Mediastinal contours appear normal. Heart size is normal. Bones and chest wall: No suspicious bony lesions. Overlying soft tissues appear unremarkable. IMPRESSION: Hazy right airspace opacity, could represent atelectasis or infection. Reviewed by: Padilla York MD on 02/04/2024 9:49 AM PST Approved by: Padilla York MD on 02/04/2024 9:49 AM PST Station ID: [id number]
[2024-02-04 09:52] LABS: VBG HCO3 26.5 mmol/L (23-28); VBG OXYGEN SATURATION 82.2 % (60-80); VBG PCO2 40.9 mmHg (41-51); VBG PH 7.429 (7.31-7.41); VBG PO2 46.4 mmHg (25-47); VBG TOTAL CO2 27.7 mmol/L (24-29)
[2024-02-04] MEDS: HYDROmorphone 0.5 MG/0.5 ML SYRINGE IVP STA ×2 (09:55→10:56)
[2024-02-04 10:22] LABS: ALBUMIN 3.5 g/dL (3.2-5.5); ALBUMIN/GLOBULIN RATIO 1.5 (1.0-2.2); BILIRUBIN,TOTAL 0.6 mg/dL (0.2-1.0); CREATININE 0.5 mg/dL (0.6-1.3); POTASSIUM 3.9 mmol/L (3.5-4.5); TOTAL PROTEIN 5.9 g/dL (6.4-8.9)
--- NOTE | 2024-02-04 10:32 | CT Report ---
PROCEDURE: CT Head WO INDICATIONS: AMS TECHNIQUE: Noncontrast 4.5 mm thick angled axial sections acquired from the foramen magnum to the vertex. For r adiation dose reduction, the following was used: automated exposure control, adjustment of mA and/or kV according to patient size. COMPARISON: None. FINDINGS: Image quality: Excellent. CSF spaces: Basal cisterns are patent. No extra-axial fluid collections. Ventricles are normal in size and shape. Brain: No midline shift. No intracranial masses or hemorrhage. Bagley-white matter interface is norm al. Skull and face: Calvarium and visualized facial bones are intact, without suspicious lesions. Sinuses: Visualized sinuses and mastoids are clear. IMPRESSION: No acute intracranial pathology. Reviewed by: Padilla York MD on 02/04/2024 10:31 AM [facility] Approved by: Padilla York MD on 02/04/2024 10:31 AM [facility] Station ID: [id number]
[2024-02-04] MEDS: CEFEPIME 2 GM in SODIUM CHLORIDE 0.9% MINIBAG 100 ML IV STA (10:55)
[2024-02-04] MEDS: DOXYCYCLINE 100 MG TABLET PO STA (10:56)
[2024-02-04 11:26] LABS: INFLUENZA A- RESP PCR PANEL NOT DETECTED; INFLUENZA B - RESP PCR PANEL NOT DETECTED; RSV- RESP PCR PANEL NOT DETECTED; SARS-CoV-2 -RESP PCR PANEL NOT DETECTED
[2024-02-04] MEDS ORDERED: oxyCODONE 5 MG TABLET PO PRN (11:52)
--- NOTE | 2024-02-04 11:57 | HISTORY & PHYSICAL EXAMINATION ---
Chief Complaint Chief Complaint Chief Complaint: Confusion, difficulty breathing History of Present Illness Admitted From Admitted From:: ED History Obtained From Records Reviewed: yes History obtained from: Patient Exam Limitations: None History of Present Illness HPI Comment/Other: Patient is a 63-year-old male with history of metastatic prostate cancer, with pelvic lymphadenopathy and ischial bone, spine, pelvis mets currently on Lupron and enzalutamide and Zometa. He is being followed closely by oncology and palliative care for pain management as well as active treatment for this cancer. He presents today with altered mentation at home earlier today. His and his daughter are also present in room, who corroborate the story. They stated that he was very out of it, and was unable to swallow pills, or answer any questions. He also appeared to be in some respiratory distress. When EMS arrived, his oxygen was in the low 80s, he was placed on nasal cannula. There is also some bilateral hand swelling and lower extremity swelling noted per the , which was new. Of note, yesterday, patient received a blood transfusion. Immediately following this, there was no shortness of breath or any difficulty breathing. This developed earlier today. The patient was seen, he was alert and oriented x 4. Did not recall quite what happened earlier in the day. He did endorse some shortness of breath, but stated that for the most part was resolved. He had one episode of a "coughing fit" yesterday. Other than that, he has not been coughing, and there has been no sputum production. He also denies any fevers or chills. He has quite an extensive pain regimen which is managed by palliative care. He is currently taking methadone 10 mg 3 times a day. On top of this, he takes oxycodone, up to 90 to 100 mg daily. This is usually divided in doses of 20 to 30 mg as needed. He is also taking Lyrica, and Decadron 2 mg daily. Despite this, he still has some pain. He states is mostly located in his right hip. Goals of care discussion did occur with and daughter, as well as the patient. He had a bone marrow biopsy done approximately 2 weeks ago, and he is awaiting results for this. He had an appointment with his oncologist, Dr. Hart, today, but was unable to attend due to this hospitalization. After this biopsy result, he was told that there may be more treatment options including chemotherapy. Him and his will then discuss whether this is something they want to pursue. We did talk about hospice care, and this is definitely something they are interested in. They would just like to speak with oncologist on more time to weigh her all their options before they move forward with this. Meds/Allgy Home Medications Ambulatory Orders Medication Instructions Recorded Confirmed enzalutamide 80 mg tablet 160 mg (2 x 80 mg) PO QDAY #60 tabs 12/21/23 02/03/24 atorvastatin 40 mg tablet (Lipitor) 40 mg PO QPM 12/22/23 02/03/24 levothyroxine 50 mcg tablet 50 mcg PO QDAY 12/22/23 02/03/24 ondansetron HCl 8 mg tablet 8 mg PO .Q6 hours PRN Nausea / 12/22/23 02/03/24 Vomiting tamsulosin 0.4 mg capsule 0.8 mg PO QPM 12/22/23 02/03/24 venlafaxine 75 mg tablet 75 mg PO BID 12/22/23 02/03/24 [id number] 300 mcg-K 60 1 tab PO DAILY 12/29/23 02/03/24 mcg-lycop 600 mcg-lutein 300 mcg tablet (Centrum Silver Ultra Men's) methylphenidate HCl 10 mg tablet 20 mg (2 x 10 mg) PO BID fatigue 01/15/24 02/03/24 #120 tabs ferrous sulfate 325 mg (65 mg 325 mg PO DAILYWM #90 tabs 01/22/24 02/03/24 iron) tablet dexamethasone 2 mg tablet 2 mg PO QDAY #30 tabs 01/28/24 02/03/24 pregabalin 25 mg capsule 50 mg PO TID 01/28/24 02/03/24 methadone 10 mg tablet 10 mg PO Q8H #90 tabs 01/29/24 02/03/24 oxycodone 10 mg tablet 10 - 20 mg (1 - 2 x 10 mg) PO Q4H 01/29/24 02/03/24 PRN pain #180 tabs Allergies Allergies Allergy/AdvReac Type Severity Reaction Status Date / Time No Known Drug Allergies Allergy Verified 02/03/24 08:54 [facility] Medical History Medical History (Updated 02/04/24 @ 12:09 by Rustam Pavon MD) Pneumonia Hyperlipidemia Hypothyroidism Anemia Cancer associated pain Respiratory failure Tonsil cancer Surgical History Surgical History History of insertion of central venous access port Family History Family History Father Cancer Mother Cancer Social History Social History Smoking Status: Never smoker Living arrangement: At home Marital Status: Living Condition: With spouse/s.o. Support Person: Yes Relationship: Level: Independent Do you feel safe in your home environment?: Yes Suffered physical, verbal, emotional, or financial abuse?: No POLST Patient has POLST: No Review of Systems Status of ROS: 10 or more systems reviewed and unremarkable except as noted in history and below Constitutional Reports: Fatigue, Malaise, Weakness, Changes in appetite or eating habits and Poor appetite; Denies: Fever or Chills Eyes Denies: Pain or Irritation Ears, nose, mouth, and throat Denies: Ear pain Cardiovascular Reports: edema, swelling of feet/ankles, shortness of breath with exertion and Decreased exercise tolerance; Denies: Irregular heart rate, chest pain or palpitations Respiratory Reports: Shortness of breath and Cough; Denies: Sputum production Gastrointestinal Reports: Nausea; Denies: Abdominal pain, Abdominal distention or Vomiting Genitourinary Denies: Painful urination Musculoskeletal Reports: Back pain, Extremity pain, Extremity swelling and Muscle pain Integumentary/Breast Denies: Rash, Itching, Dryness or Redness Neurological Denies: Headache, General weakness or Focal weakness Endocrine Reports: Fatigue; Denies: Excessive urination Prior Level of Functionality: Lives at home with Exam Constitutional normal general appearance, no apparent distress and average body habitus HENMT normocephalic and head/scalp atraumatic Eyes PERRL, EOMs intact bilaterally and conjunctivae normal Neck/C-Spine visual inspection normal Chest inspection of chest abnormal (mediport in place in R chest wall; no erythema or drainage or swelling note) and palpation of chest abnormal (some tenderness to palpation bilaterally) Chest tender to palpation Respiratory breath sounds equal bilaterally, clear to auscultation bilaterally, no wheezes and no rales Cardiovascular heart rate abnormal (tachycardic) and murmur noted (systolic) Gastrointestinal abdomen normal to inspection and abdomen soft to palpation Genitourinary bladder normal to palpation Extremities normal to inspection 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 Likely due to early community-acquired pneumonia in setting of repeated atelectasis due to increasing pain and shallow breathing. Will continue Rocephin and azithromycin at this time. Continue to wean oxygen as tolerated. (2) Pneumonia: Plan: Continue Rocephin and azithromycin. Qualifiers: Laterality: left Lung location: lower lobe of lung Pneumonia type: due to unspecified organism Qualified Code(s): J18.9 - Pneumonia, unspecified organism (3) Cancer associated pain: Plan: Patient with longstanding history of cancer associated pain due to extensive metastasis to the bones. Follows with palliative care in the outpatient setting. Will continue outpatient regimen including 10 mg of methadone 3 times a day, oxycodone 10 to 20 mg every 3 hours as needed depending on severity of pain. Will also continue Lyrica 50 mg 3 times a day. Will continue Decadron 2 mg daily as well. IV morphine added for breakthrough pain. Palliative care consulted as they know patient well for further reccomendations. (4) Prostate cancer metastatic to bone: Plan: Patient had an appointment with Dr. Hart, his oncologist today. Dr. Hart's team was spoken with; they are able to see him in the hospital today to go over his bone marrow biopsy results. After this, patient and his family state that they will make a decision regarding his goals of care including possible hospice treatment.Not currently on active chemotherapy, follow-up outpatient for management of cancer. At this time, we will honor the POLST that we have on file, and attempt resuscitation. Lab Results Lab results reviewed: Yes 02/04/24 09:35 02/04/24 09:50 Diagnostic Imaging Results Diagnostic Imaging Results: positive Final report reviewed EKG Results EKG Interpreted Independently: Yes EKG Findings: Minimal, nonspecific T wave abnormalities in anterolateral leads Core Measures Anticipated LOS I expect patient to be DC'd or transferred within 96 hours.: Yes Issues Hospital Issues and Management Plan: Pain management, O2 monitoring DVT/VTE - Prophylaxis VTE/DVT Device ordered at admit?: Yes VTE/DVT Prophylaxis med ordered at admit?: Yes Stroke - Rehab Assessment Rehab services assessment to be ordered?: No Not Ordered - Medical Reason: Not indicated AMI - Statin at Admit Aspirin Prescribed on Admit: No Not Ordered - Medical Reason: Not indicated
[2024-02-04] MEDS: oxyCODONE 5 MG TABLET PO PRN ×2 (12:08→17:29)
[2024-02-04] MEDS: MORPHINE 2 MG/ML CARPUJECT IVP PRN ×2 (12:09→18:47)
[2024-02-04] MEDS: PREGABALIN 25 MG CAPSULE PO STA (12:11)
[2024-02-04 13:02] LABS: BILIRUBIN,URINE NEGATIVE (NEGATIVE); GLUCOSE, URINE (UA) NEGATIVE (NEGATIVE); KETONES,URINE (UA) 40 mg/dL (NEGATIVE); LEUKOCYTE ESTERASE, URINE NEGATIVE (NEGATIVE); NITRITE,URINE NEGATIVE (NEGATIVE); OCCULT BLOOD,URINE NEGATIVE (NEGATIVE); PROTEIN,URINE TRACE mg/dL (NEGATIVE); UROBILINOGEN,URINE 0.2 (NORMAL) E.U./dL (NORMAL)
[2024-02-04] MEDS: LEVOTHYROXINE 25 MCG TABLET PO SCH (13:11)
[2024-02-04] MEDS: DEXAMETHASONE 10 MG/ML VIAL PO STA (13:12)
[2024-02-04 13:16] LABS: CLARITY,URINE CLEAR (CLEAR)
[2024-02-04 13:48] LABS: BACTERIA,URINE Rare /HPF (None Seen); RBC,URINE 0-5 /HPF (0-5); SQUAMOUS EPITHELIAL CELL,UR RARE Squamous (<= Few); WBC,URINE 0-3 /HPF (0-3)
[2024-02-04] MEDS ORDERED: ONDANSETRON ODT 4 MG TABLET TL PRN (14:01)
--- NOTE | 2024-02-04 15:01 | PHARMACY PROGRESS NOTE ---
Best Possible Medication History Admit Date and Time: 02/04/24 [id number] Home Medications Medication Instructions Recorded Confirmed Type enzalutamide 80 mg tablet 160 mg (2 x 80 mg) PO QDAY #60 tabs 12/21/23 02/04/24 Rx atorvastatin 40 mg tablet (Lipitor) 40 mg PO QPM 12/22/23 02/04/24 History levothyroxine 50 mcg tablet 50 mcg PO QDAY 12/22/23 02/03/24 History ondansetron HCl 8 mg tablet 8 mg PO .Q6 hours PRN Nausea / 12/22/23 02/04/24 History Vomiting tamsulosin 0.4 mg capsule 0.8 mg PO QPM 12/22/23 02/04/24 History venlafaxine 75 mg tablet 75 mg PO BID 12/22/23 02/04/24 History [id number] 300 mcg-K 60 1 tab PO DAILY 12/29/23 02/04/24 History mcg-lycop 600 mcg-lutein 300 mcg tablet (Centrum Silver Ultra Men's) methylphenidate HCl 10 mg tablet 20 mg (2 x 10 mg) PO BID fatigue 01/15/24 02/04/24 Rx #120 tabs ferrous sulfate 325 mg (65 mg 325 mg PO DAILYWM #90 tabs 01/22/24 02/04/24 Rx iron) tablet dexamethasone 2 mg tablet 2 mg PO QDAY #30 tabs 01/28/24 02/04/24 Rx pregabalin 25 mg capsule 50 mg PO TID 01/28/24 02/04/24 History methadone 10 mg tablet 10 mg PO Q8H #90 tabs 01/29/24 02/04/24 Rx oxycodone 10 mg tablet 10 - 20 mg (1 - 2 x 10 mg) PO Q4H 01/29/24 02/04/24 Rx PRN pain #180 tabs Processed by: Pharmacy Medications reviewed in ED?: No Medication History completed: Yes Secondary Source(s): Caregiver, Physician records, Pharmacy records and Insurance records [facility] Statement: As the person ultimately responsible for medication therapy, providers are able to order a medication from an existing home medication list in [facility] via the "Reconcile Routine" prior to Confirmation of that medication by media production support manager. Such practice is discouraged except when the physician, in their clinical judgm ent, deems that a medical need exists for a medication without regard to previous use.
[2024-02-04] MEDS: dexAMETHasone 4 MG TABLET PO SCH (15:09)
[2024-02-04] MEDS: METHADONE 5 MG TABLET PO SCH (15:09)
[2024-02-04] MEDS: SENNA 8.6 MG TABLET PO SCH (15:09)
[2024-02-04] MEDS: PREGABALIN 25 MG CAPSULE PO SCH (15:10)
[2024-02-04] MEDS: polyethylene glycoL 3350 17 GM PACKET PO SCH (15:10)
[2024-02-04] MEDS: VENLAFAXINE 37.5 MG TABLET PO SCH (15:10)
[2024-02-04] MEDS: METHYLPHENIDATE 10 MG TABLET PO SCH (15:52)
[2024-02-04] MEDS: ONDANSETRON 4 MG/2 ML VIAL IVP PRN (17:28)
[2024-02-04] MEDS: TAMSULOSIN 0.4 MG CAPSULE PO SCH (20:28)
[2024-02-04] MEDS: ATORVASTATIN 40 MG TABLET PO SCH (20:28)
[2024-02-05 06:25] LABS: HGB - HEMOGLOBIN 7.3 g/dL (14.0-18.0); MEAN CORPUSCULAR HEMOGLOBIN 27.7 pg (27.0-31.0); MEAN CORPUSCULAR HGB CONC 30.4 g/dL (32.0-36.0); MEAN CORPUSCULAR VOLUME 90.9 fL (80.0-94.0); MEAN PLATELET VOLUME 8.8 fL (7.4-11.4); RED BLOOD COUNT 2.64 10^6/uL (4.70-6.10); RED CELL DISTRIBUTION WIDTH 18.5 % (12.0-15.0); WHITE BLOOD COUNT 4.5 x10^3/uL (4.8-10.8)
[2024-02-05 06:42] LABS: CALCIUM 8.4 mg/dL (8.5-10.3); CREATININE 0.4 mg/dL (0.6-1.3)
[2024-02-05] MEDS: METHYLPHENIDATE 5 MG TABLET PO SCH (08:15)
[2024-02-05] MEDS: MULTIVITAMIN TABLET PO SCH (08:15)
[2024-02-05] MEDS: AZITHROMYCIN 250 MG TABLET PO SCH (08:16)
[2024-02-05] MEDS: cefTRIAXone 1 GM VIAL IVP SCH (08:16)
[2024-02-05] MEDS: ENOXAPARIN 40 MG/0.4 ML SYRINGE SUBQ SCH (08:17)
--- NOTE | 2024-02-05 09:07 | PROVIDER PROGRESS NOTE ---
Subjective Subjective Subjective: Patient states he is doing well this morning. His shortness of breath is improving. His pain is well-controlled with his current regimen. He spoke with Dr. Hart yesterday, and they have agreed to pursue chemotherapy after this hospital stay. He appears motivated, and has good support with his and daughter at bedside. Current Medications Current Medications Current Medications: Current Medications Generic Name Dose Route Start Last Admin Trade Name Freq PRN Reason Stop Dose Admin Acetaminophen 650 mg 02/04/24 14:01 Acetaminophen 325 Mg Tablet PO Q4HR PRN Pain 1 to 4, or Fever Atorvastatin Calcium 40 mg 02/04/24 21:00 02/04/24 20:28 Atorvastatin 40 Mg Tablet PO 40 mg QPM MELA Administration Azithromycin 500 mg 02/05/24 09:00 02/05/24 08:16 Azithromycin 250 Mg Tablet PO 500 mg DAILY MELA Administration Ceftriaxone Sodium 1 gm 02/05/24 09:00 02/05/24 08:16 Ceftriaxone 1 Gm Vial IVP 1 gm DAILY MELA Administration Dexamethasone 2 mg 02/04/24 12:00 02/05/24 08:16 Dexamethasone 4 Mg Tablet PO 2 mg DAILY MELA Administration Enoxaparin Sodium 40 mg 02/05/24 09:00 02/05/24 08:17 Enoxaparin 40 Mg/0.4 Ml Syringe SUBQ 40 mg DAILY MELA Administration Levothyroxine Sodium 50 mcg 02/04/24 12:00 02/05/24 06:21 Levothyroxine 25 Mcg Tablet PO 50 mcg QDAC MELA Administration Methadone HCl 10 mg 02/04/24 14:30 02/05/24 06:21 Methadone 5 Mg Tablet PO 10 mg Q8HR MELA Administration Methylphenidate HCl 20 mg 02/05/24 08:00 02/05/24 08:15 Methylphenidate 5 Mg Tablet PO 20 mg 0800,1400 MELA Administration Morphine Sulfate 2 mg 02/04/24 14:01 02/04/24 18:47 Morphine 2 Mg/Ml Carpuject IVP 2 mg Q2HR PRN Administration Pain 8 to 10 Multivitamins 1 tab 02/05/24 08:00 02/05/24 08:15 Multivitamin Tablet PO 1 tab DAILYWM MELA Administration Ondansetron HCl 4 mg 02/04/24 14:01 02/04/24 17:28 Ondansetron 4 Mg/2 Ml Vial IVP 4 mg Q6HR PRN Administration Nausea / Vomiting Ondansetron HCl 4 mg 02/04/24 14:01 Ondansetron Odt 4 Mg Tablet TL Q6HR PRN Nausea / Vomiting Oxycodone HCl 30 mg 02/05/24 07:08 Oxycodone 30 Mg Tablet PO Q3HR PRN pain OF 7 OR MORE Oxycodone HCl 20 mg 02/05/24 07:08 Oxycodone 5 Mg Tablet PO Q3HR PRN Moderate Pain (Level 4-6) Enzalutamide 80 Mg 2 each 02/04/24 20:00 02/04/24 20:29 Tablet PO 2 each 1999 MELA Administration Polyethylene Glycol 17 gm 02/04/24 14:01 02/05/24 08:15 Polyethylene Glycol 3350 17 Gm Packet PO 17 gm DAILY MELA Administration Pregabalin 50 mg 02/04/24 14:00 02/05/24 06:21 Pregabalin 25 Mg Capsule PO 50 mg TID MELA Administration Senna 8.6 mg 02/04/24 15:00 02/05/24 06:21 Senna 8.6 Mg Tablet PO 8.6 mg TID MELA Administration Tamsulosin HCl 0.8 mg 02/04/24 21:00 02/04/24 20:28 Tamsulosin 0.4 Mg Capsule PO 0.8 mg QPM MELA Administration Venlafaxine HCl 75 mg 02/04/24 14:01 02/05/24 08:15 Venlafaxine 37.5 Mg Tablet PO 75 mg BID MELA Administration Objective Vital Signs/Intake & Output Reviewed Vital Signs: Yes Intake & Output: Intake & Output 02/03/24 02/04/24 02/05/24 02/06/24 05:59 05:59 05:59 05:59 Intake Total 1500 / 1500 Balance 1500 / 1500 Weight (kg) 86.5 kg Objective General Appearance: positive No acute distress and Alert Eyes Bilateral: positive Normal inspection, PERRL and EOMI ENT: positive ENT inspection nml, Pharynx nml and No signs of dehydration Neck: positive Nml inspection, Thyroid nml and No JVD Respiratory: positive Chest non-tender, No respiratory distress and Breath sounds nml; negative Wheezes, Rales or Rhonchi Cardiovascular: positive Regular rate & rhythm, No murmur and No gallop; negative Systolic murmur or Diastolic murmur Abdomen: positive Non-tender; negative Guarding, Rebound, Hepatomegaly, Splenomegaly or Mass Back: positive Nml inspection; negative CVA tenderness (R) or CVA tenderness (L) Skin: positive Color nml, No rash and Dry Extremities: positive Non-tender, Full ROM and No pedal edema Neurologic/Psychiatric: positive Oriented x3 and Mood/affect nml Lab Results 02/05/24 06:15 02/05/24 06:15 Other Labs: Lab Results x24hrs 02/05/24 02/04/24 02/04/24 Range/Units 06:15 12:35 10:19 WBC 4.5 L (4.8-10.8) x10^3/uL RBC 2.64 L (4.70-6.10) 10^6/uL Hgb 7.3 L (14.0-18.0) g/dL Hct 24.0 L (42.0-52.0) % MCV 90.9 (80.0-94.0) fL MCH 27.7 (27.0-31.0) pg MCHC 30.4 L (32.0-36.0) g/dL RDW 18.5 H (12.0-15.0) % Plt Count 146 (130-450) 10^3/uL MPV 8.8 (7.4-11.4) fL Neut # (Auto) (1.5-6.6) 10^3/uL Lymph # (Auto) (1.5-3.5) 10^3/uL [place] # (Auto) (0.0-1.0) 10^3/uL Eos # (Auto) (0.0-0.7) 10^3/uL Baso # (Auto) (0.0-0.1) 10^3/uL Absolute Nucleated RBC x10^3/uL Nucleated RBC % /100WBC VBG pH (7.31-7.41) VBG pCO2 (41-51) mmHg VBG pO2 (25-47) mmHg VBG HCO3 (23-28) mmol/L VBG Total CO2 (24-29) mmol/L VBG O2 Saturation (60-80) % VBG Base Excess (-2 - +2) mmol/L Sodium 136 (135-145) mmol/L Potassium 4.0 (3.5-4.5) mmol/L Chloride 100 L (101-111) mmol/L Carbon Dioxide 32 (21-32) mmol/L Anion Gap 4.0 L (6-13) BUN 10 (6-20) mg/dL Creatinine 0.4 L (0.6-1.3) mg/dL Estimated GFR (MDRD) 216 (>89) Glucose 118 H (74-104) mg/dL Lactic Acid (0.5-2.2) mmol/L Calcium 8.4 L (8.5-10.3) mg/dL Total Bilirubin (0.2-1.0) mg/dL AST (10-42) IU/L ALT (10-60) IU/L Alkaline Phosphatase (42-121) IU/L B-Natriuretic Peptide (5-100) pg/mL Total Protein (6.4-8.9) g/dL Albumin (3.2-5.5) g/dL Globulin (2.1-4.2) g/dL Albumin/Globulin Ratio (1.0-2.2) Urine Color DARK YELLOW Urine Clarity CLEAR (CLEAR) Urine pH 6.0 (5.0-7.5) PH Ur Specific [place] 1.020 (1.002-1.030) Urine Protein TRACE (NEGATIVE) mg/dL Urine Glucose (UA) NEGATIVE (NEGATIVE) mg/dL Urine Ketones 40 H (NEGATIVE) mg/dL Urine Occult Blood NEGATIVE (NEGATIVE) Urine Nitrite NEGATIVE (NEGATIVE) Urine Bilirubin NEGATIVE (NEGATIVE) Urine Urobilinogen 0.2 (NORMAL) (NORMAL) E.U./dL Ur Leukocyte Esterase NEGATIVE (NEGATIVE) Urine RBC 0-5 (0-5) /HPF Urine WBC 0-3 (0-3) /HPF Ur Squamous Epith Cells RARE Squamous (<= Few) Urine Bacteria Rare (None Seen) /HPF Urine Culture Comments NOT INDICATED Nasal Influenza B PCR NOT DETECTED Nasal Influenza A PCR NOT DETECTED Nasal RSV (PCR) NOT DETECTED Nasal SARS-CoV-2 (PCR) NOT DETECTED 02/04/24 02/04/24 02/04/24 Range/Units 09:50 09:35 09:24 WBC 5.2 (4.8-10.8) x10^3/uL RBC 3.02 L (4.70-6.10) 10^6/uL Hgb 8.0 L (14.0-18.0) g/dL Hct 27.0 L (42.0-52.0) % MCV 89.4 (80.0-94.0) fL MCH 26.5 L (27.0-31.0) pg MCHC 29.6 L (32.0-36.0) g/dL RDW 18.8 H (12.0-15.0) % Plt Count 168 (130-450) 10^3/uL MPV 8.8 (7.4-11.4) fL Neut # (Auto) 3.7 (1.5-6.6) 10^3/uL Lymph # (Auto) 0.6 L (1.5-3.5) 10^3/uL [place] # (Auto) 0.7 (0.0-1.0) 10^3/uL Eos # (Auto) 0.0 (0.0-0.7) 10^3/uL Baso # (Auto) 0.0 (0.0-0.1) 10^3/uL Absolute Nucleated RBC 0.03 x10^3/uL Nucleated RBC % 0.6 /100WBC VBG pH 7.429 H (7.31-7.41) VBG pCO2 40.9 L (41-51) mmHg VBG pO2 46.4 (25-47) mmHg VBG HCO3 26.5 (23-28) mmol/L VBG Total CO2 27.7 (24-29) mmol/L VBG O2 Saturation 82.2 H (60-80) % VBG Base Excess 2.0 (-2 - +2) mmol/L Sodium 135 (135-145) mmol/L Potassium 3.9 (3.5-4.5) mmol/L Chloride 98 L (101-111) mmol/L Carbon Dioxide 29 (21-32) mmol/L Anion Gap 8.0 (6-13) BUN 8 (6-20) mg/dL Creatinine 0.5 L (0.6-1.3) mg/dL Estimated GFR (MDRD) 167 (>89) Glucose 124 H (74-104) mg/dL Lactic Acid 0.9 (0.5-2.2) mmol/L Calcium 8.0 L (8.5-10.3) mg/dL Total Bilirubin 0.6 (0.2-1.0) mg/dL AST 35 (10-42) IU/L ALT 18 (10-60) IU/L Alkaline Phosphatase 936 H (42-121) IU/L B-Natriuretic Peptide 341 H (5-100) pg/mL Total Protein 5.9 L (6.4-8.9) g/dL Albumin 3.5 (3.2-5.5) g/dL Globulin 2.4 (2.1-4.2) g/dL Albumin/Globulin Ratio 1.5 (1.0-2.2) Urine Color Urine Clarity (CLEAR) Urine pH (5.0-7.5) PH Ur Specific [place] (1.002-1.030) Urine Protein (NEGATIVE) mg/dL Urine Glucose (UA) (NEGATIVE) mg/dL Urine Ketones (NEGATIVE) mg/dL Urine Occult Blood (NEGATIVE) Urine Nitrite (NEGATIVE) Urine Bilirubin (NEGATIVE) Urine Urobilinogen (NORMAL) E.U./dL Ur Leukocyte Esterase (NEGATIVE) Urine RBC (0-5) /HPF Urine WBC (0-3) /HPF Ur Squamous Epith Cells (<= Few) Urine Bacteria (None Seen) /HPF Urine Culture Comments Nasal Influenza B PCR Nasal Influenza A PCR Nasal RSV (PCR) Nasal SARS-CoV-2 (PCR) Assessment/Plan Problem List (1) Acute hypoxic respiratory failure: Impression: Patient's desaturated to the low 80s, requiring 4 L of oxygen. Doing well today; continue to wean oxygen as tolerated. Likely due to early community-acquired pneumonia in setting of repeated atelectasis due to increasing pain and shallow breathing. Will continue Rocephin and azithromycin at this time. (2) Pneumonia: Impression: Continue Rocephin and azithromycin. Qualifiers: Laterality: left Lung location: lower lobe of lung Pneumonia type: due to unspecified organism Qualified Code(s): J18.9 - Pneumonia, unspecified organism (3) Cancer associated pain: Impression: Patient with longstanding history of cancer associated pain due to extensive metastasis to the bones. Follows with palliative care in the outpatient setting. Will continue outpatient regimen including 10 mg of methadone 3 times a day, oxycodone 20 to 30 mg every 3 hours as needed depending on severity of pain. Will also continue Lyrica 50 mg 3 times a day. Will continue Decadron 2 mg daily as well. IV morphine added for breakthrough pain. (4) Prostate cancer metastatic to bone: Impression: Patient had an appointment with Dr. Hart, his oncologist today. Dr. Hart's team was spoken with; they were able to see him yesterday in the hospital to go over his bone marrow biopsy results. Plan is chemotherapy once discharged. At this time, we will honor the POLST that we have on file, and attempt resuscitation.
[2024-02-05] MEDS: oxyCODONE 30 MG TABLET PO PRN (10:12)
[2024-02-05] MEDS: SENNA 8.6 MG TABLET PO SCH (13:30)
[2024-02-05] MEDS: FERROUS SULFATE 325 MG TABLET PO SCH (13:49)
[2024-02-05] MEDS: METHADONE 5 MG TABLET PO SCH (20:37)
[2024-02-05] MEDS: polyethylene glycoL 3350 17 GM PACKET PO SCH (20:39)
[2024-02-06 05:04] LABS: HCT - HEMATOCRIT 26.1 % (42.0-52.0); HGB - HEMOGLOBIN 7.6 g/dL (14.0-18.0); MEAN CORPUSCULAR HEMOGLOBIN 26.6 pg (27.0-31.0); MEAN CORPUSCULAR HGB CONC 29.1 g/dL (32.0-36.0); MEAN CORPUSCULAR VOLUME 91.3 fL (80.0-94.0); MEAN PLATELET VOLUME 9.1 fL (7.4-11.4); RED BLOOD COUNT 2.86 10^6/uL (4.70-6.10); RED CELL DISTRIBUTION WIDTH 18.3 % (12.0-15.0); WHITE BLOOD COUNT 4.7 x10^3/uL (4.8-10.8)
[2024-02-06 05:21] LABS: CALCIUM 8.7 mg/dL (8.5-10.3); CREATININE 0.5 mg/dL (0.6-1.3)
--- NOTE | 2024-02-06 09:17 | PROVIDER PROGRESS NOTE ---
Subjective Subjective Subjective: Patient did have some pain overnight. He states it is improved this morning. He expresses concern over feeling a little bit loopy and not like himself with this higher dose of methadone, but is still in pain. He denies any shortness of breath, and cough, any fevers, any chills. He is eating and drinking better. He was able to eat half of a sandwich yesterday, and is still doing 2 ensures with each meal. Current Medications Current Medications Current Medications: Current Medications Generic Name Dose Route Start Last Admin Trade Name Freq PRN Reason Stop Dose Admin Acetaminophen 650 mg 02/04/24 14:01 Acetaminophen 325 Mg Tablet PO Q4HR PRN Pain 1 to 4, or Fever Atorvastatin Calcium 40 mg 02/04/24 21:00 02/05/24 20:39 Atorvastatin 40 Mg Tablet PO 40 mg QPM MELA Administration Azithromycin 500 mg 02/05/24 09:00 02/06/24 08:11 Azithromycin 250 Mg Tablet PO 500 mg DAILY MELA Administration Ceftriaxone Sodium 1 gm 02/05/24 09:00 02/06/24 08:07 Ceftriaxone 1 Gm Vial IVP 1 gm DAILY MELA Administration Dexamethasone 2 mg 02/04/24 12:00 02/06/24 08:09 Dexamethasone 4 Mg Tablet PO 2 mg DAILY MELA Administration Enoxaparin Sodium 40 mg 02/05/24 09:00 02/06/24 08:09 Enoxaparin 40 Mg/0.4 Ml Syringe SUBQ 40 mg DAILY MELA Administration Ferrous Sulfate 325 mg 02/05/24 14:00 02/06/24 08:11 Ferrous Sulfate 325 Mg Tablet PO 325 mg DAILYWM MELA Administration Heparin Sodium (Beef Lung) 30 - 50 unit 02/05/24 19:07 Heparin Flush 50 Units/5 Ml Syringe IVP PRN PRN Port Protocol (<24 hours) Heparin Sodium (Beef Lung) 300 - 500 unit 02/05/24 19:07 Heparin Flush 500 Units/5 Ml Syringe IVP PRN PRN Port Protocol (>24 hours) Levothyroxine Sodium 50 mcg 02/04/24 12:00 02/06/24 06:33 Levothyroxine 25 Mcg Tablet PO 50 mcg QDAC MELA Administration Methadone HCl 10 mg 02/06/24 12:00 Methadone 5 Mg Tablet PO TID MELA Methylphenidate HCl 20 mg 02/05/24 08:00 02/06/24 08:23 Methylphenidate 5 Mg Tablet PO 20 mg 0800,1400 MELA Administration Morphine Sulfate 2 mg 02/04/24 14:01 02/04/24 18:47 Morphine 2 Mg/Ml Carpuject IVP 2 mg Q2HR PRN Administration Pain 8 to 10 Multivitamins 1 tab 02/05/24 08:00 02/06/24 08:11 Multivitamin Tablet PO 1 tab DAILYWM MELA Administration Ondansetron HCl 4 mg 02/04/24 14:01 02/04/24 17:28 Ondansetron 4 Mg/2 Ml Vial IVP 4 mg Q6HR PRN Administration Nausea / Vomiting Ondansetron HCl 4 mg 02/04/24 14:01 Ondansetron Odt 4 Mg Tablet TL Q6HR PRN Nausea / Vomiting Oxycodone HCl 30 mg 02/05/24 07:08 02/06/24 07:47 Oxycodone 30 Mg Tablet PO 30 mg Q3HR PRN Administration pain OF 7 OR MORE Oxycodone HCl 20 mg 02/05/24 07:08 Oxycodone 5 Mg Tablet PO Q3HR PRN Moderate Pain (Level 4-6) Enzalutamide 80 Mg 2 each 02/04/24 20:00 02/05/24 20:36 Tablet PO 2 each 1999 MELA Administration Polyethylene Glycol 17 gm 02/05/24 21:00 02/06/24 08:07 Polyethylene Glycol 3350 17 Gm Packet PO 17 gm BID MELA Administration Pregabalin 50 mg 02/04/24 14:00 02/06/24 06:33 Pregabalin 25 Mg Capsule PO 50 mg TID MELA Administration Senna 25.8 mg 02/05/24 13:00 02/06/24 06:34 Senna 8.6 Mg Tablet PO 25.8 mg TID MELA Administration Tamsulosin HCl 0.8 mg 02/04/24 21:00 02/05/24 20:38 Tamsulosin 0.4 Mg Capsule PO 0.8 mg QPM MELA Administration Venlafaxine HCl 75 mg 02/04/24 14:01 02/06/24 08:11 Venlafaxine 37.5 Mg Tablet PO 75 mg BID MELA Administration Objective Vital Signs/Intake & Output Reviewed Vital Signs: Yes Vital Signs: Vital Signs x48h Temp Pulse Resp BP Pulse Ox O2 Flow Rate 02/06/24 08:53 97.9 F 80 16 142/85 H 95 1 Intake & Output: Intake & Output 02/04/24 02/05/24 02/06/24 02/07/24 05:59 05:59 05:59 05:59 Intake Total 1500 / 1500 2971 / 2971 Balance 1500 / 1500 297 / 2971 Weight (kg) 86.5 kg Objective General Appearance: positive No acute distress and Alert Eyes Bilateral: positive Normal inspection, PERRL and EOMI ENT: positive ENT inspection nml, Pharynx nml and No signs of dehydration Neck: positive Nml inspection, Thyroid nml and No JVD Respiratory: positive Chest non-tender, No respiratory distress and Breath sounds nml; negative Wheezes, Rales or Rhonchi Cardiovascular: positive Regular rate & rhythm, No murmur and No gallop; negative Systolic murmur or Diastolic murmur Abdomen: positive Non-tender; negative Guarding, Rebound, Hepatomegaly, Splenomegaly or Mass Back: positive Nml inspection; negative CVA tenderness (R) or CVA tenderness (L) Skin: positive Color nml, No rash and Dry Extremities: positive Non-tender, Full ROM and No pedal edema Neurologic/Psychiatric: positive Oriented x3 and Mood/affect nml Lab Results 02/06/24 04:50 02/06/24 04:50 Other Labs: Lab Results x24hrs 02/06/24 Range/Units 04:50 WBC 4.7 L (4.8-10.8) x10^3/uL RBC 2.86 L (4.70-6.10) 10^6/uL Hgb 7.6 L (14.0-18.0) g/dL Hct 26.1 L (42.0-52.0) % MCV 91.3 (80.0-94.0) fL MCH 26.6 L (27.0-31.0) pg MCHC 29.1 L (32.0-36.0) g/dL RDW 18.3 H (12.0-15.0) % Plt Count 161 (130-450) 10^3/uL MPV 9.1 (7.4-11.4) fL Sodium 137 (135-145) mmol/L Potassium 4.0 (3.5-4.5) mmol/L Chloride 100 L (101-111) mmol/L Carbon Dioxide 31 (21-32) mmol/L Anion Gap 6.0 (6-13) BUN 9 (6-20) mg/dL Creatinine 0.5 L (0.6-1.3) mg/dL Estimated GFR (MDRD) 167 (>89) Glucose 100 (74-104) mg/dL Calcium 8.7 (8.5-10.3) mg/dL Assessment/Plan Problem List (1) Acute hypoxic respiratory failure: Impression: Patient's desaturated to the low 80s, requiring 4 L of oxygen. Doing well today; continue to wean oxygen as tolerated. Remains on 1L. Will turn off, do ambulatory pulse ox tomorrow. Likely due to early community-acquired pneumonia in setting of repeated atelectasis due to increasing pain and shallow breathing. Will continue Rocephin for five days. Today is last day of azithromycin. (2) Pneumonia: Impression: Continue Rocephin and azithromycin. Qualifiers: Laterality: left Lung location: lower lobe of lung Pneumonia type: due to unspecified organism Qualified Code(s): J18.9 - Pneumonia, unspecified organism (3) Cancer associated pain: Impression: Patient with longstanding history of cancer associated pain due to extensive metastasis to the bones. Follows with palliative care in the outpatient setting. Will continue outpatient regimen including 10 mg of methadone 3 times a day, oxycodone 20 to 30 mg every 3 hours as needed depending on severity of pain. Will also continue Lyrica 50 mg 3 times a day. Will continue Decadron 2 mg daily as well. IV morphine added for breakthrough pain, which he has not required. (4) Prostate cancer metastatic to bone: Impression: Patient had an appointment with Dr. Hart, his oncologist today. Dr. Hart's team was spoken with; they were able to see him yesterday in the hospital to go over his bone marrow biopsy results. Plan is chemotherapy once discharged. At this time, we will honor the POLST that we have on file, and attempt resuscitation.
[2024-02-06] MEDS ORDERED: METHADONE 5 MG TABLET PO SCH ×2 (12:00)
[2024-02-06] MEDS: METHADONE 5 MG TABLET PO SCH (14:23)
[2024-02-07 06:27] LABS: HCT - HEMATOCRIT 26.4 % (42.0-52.0); HGB - HEMOGLOBIN 7.7 g/dL (14.0-18.0); MEAN CORPUSCULAR HEMOGLOBIN 26.4 pg (27.0-31.0); MEAN CORPUSCULAR HGB CONC 29.2 g/dL (32.0-36.0); MEAN CORPUSCULAR VOLUME 90.4 fL (80.0-94.0); MEAN PLATELET VOLUME 8.7 fL (7.4-11.4); RED BLOOD COUNT 2.92 10^6/uL (4.70-6.10); RED CELL DISTRIBUTION WIDTH 18.3 % (12.0-15.0); WHITE BLOOD COUNT 4.5 x10^3/uL (4.8-10.8)
[2024-02-07 06:48] LABS: CALCIUM 8.3 mg/dL (8.5-10.3); CREATININE 0.4 mg/dL (0.6-1.3); POTASSIUM 3.7 mmol/L (3.5-4.5)
--- NOTE | 2024-02-07 09:22 | PROVIDER PROGRESS NOTE ---
Subjective Subjective Subjective: Patient did have some pain overnight, requiring morphine. He states his shortness of breath is completely resolved. He still requiring 1 L. Possibility of sending him home with oxygen as needed was discussed with him, his and his daughter. Are agreeable with this at this time. He does state that he is eating and drinking better, and stated that he finished most of his meals yesterday. Current Medications Current Medications Current Medications: Current Medications Generic Name Dose Route Start Last Admin Trade Name Freq PRN Reason Stop Dose Admin Acetaminophen 650 mg 02/04/24 14:01 Acetaminophen 325 Mg Tablet PO Q4HR PRN Pain 1 to 4, or Fever Atorvastatin Calcium 40 mg 02/04/24 21:00 02/06/24 22:07 Atorvastatin 40 Mg Tablet PO 40 mg QPM MELA Administration Ceftriaxone Sodium 1 gm 02/05/24 09:00 02/07/24 08:43 Ceftriaxone 1 Gm Vial IVP 1 gm DAILY MELA Administration Dexamethasone 2 mg 02/04/24 12:00 02/07/24 08:43 Dexamethasone 4 Mg Tablet PO 2 mg DAILY MELA Administration Enoxaparin Sodium 40 mg 02/05/24 09:00 02/06/24 08:09 Enoxaparin 40 Mg/0.4 Ml Syringe SUBQ 40 mg DAILY MELA Administration Ferrous Sulfate 325 mg 02/05/24 14:00 02/07/24 08:43 Ferrous Sulfate 325 Mg Tablet PO 325 mg DAILYWM MELA Administration Heparin Sodium (Beef Lung) 30 - 50 unit 02/05/24 19:07 Heparin Flush 50 Units/5 Ml Syringe IVP PRN PRN Port Protocol (<24 hours) Heparin Sodium (Beef Lung) 300 - 500 unit 02/05/24 19:07 Heparin Flush 500 Units/5 Ml Syringe IVP PRN PRN Port Protocol (>24 hours) Levothyroxine Sodium 50 mcg 02/04/24 12:00 02/07/24 06:16 Levothyroxine 25 Mcg Tablet PO 50 mcg QDAC MELA Administration Methadone HCl 10 mg 02/06/24 14:00 02/07/24 06:16 Methadone 5 Mg Tablet PO 10 mg TID MELA Administration Methylphenidate HCl 20 mg 02/05/24 08:00 02/07/24 08:42 Methylphenidate 5 Mg Tablet PO 20 mg 0800,1400 MELA Administration Morphine Sulfate 2 mg 02/04/24 14:01 02/07/24 07:32 Morphine 2 Mg/Ml Carpuject IVP 2 mg Q2HR PRN Administration Pain 8 to 10 Multivitamins 1 tab 02/05/24 08:00 02/07/24 08:43 Multivitamin Tablet PO 1 tab DAILYWM MELA Administration Ondansetron HCl 4 mg 02/04/24 14:01 02/04/24 17:28 Ondansetron 4 Mg/2 Ml Vial IVP 4 mg Q6HR PRN Administration Nausea / Vomiting Ondansetron HCl 4 mg 02/04/24 14:01 Ondansetron Odt 4 Mg Tablet TL Q6HR PRN Nausea / Vomiting Oxycodone HCl 30 mg 02/05/24 07:08 02/07/24 07:08 Oxycodone 30 Mg Tablet PO 30 mg Q3HR PRN Administration pain OF 7 OR MORE Oxycodone HCl 20 mg 02/05/24 07:08 Oxycodone 5 Mg Tablet PO Q3HR PRN Moderate Pain (Level 4-6) Enzalutamide 80 Mg 2 each 02/04/24 20:00 02/06/24 22:06 Tablet PO 2 each 1999 MELA Administration Polyethylene Glycol 17 gm 02/05/24 21:00 02/07/24 08:44 Polyethylene Glycol 3350 17 Gm Packet PO 17 gm BID MELA Administration Pregabalin 50 mg 02/04/24 14:00 02/07/24 06:16 Pregabalin 25 Mg Capsule PO 50 mg TID MELA Administration Senna 25.8 mg 02/05/24 13:00 02/07/24 06:17 Senna 8.6 Mg Tablet PO 25.8 mg TID MELA Administration Tamsulosin HCl 0.8 mg 02/04/24 21:00 02/06/24 22:07 Tamsulosin 0.4 Mg Capsule PO 0.8 mg QPM MELA Administration Venlafaxine HCl 75 mg 02/04/24 14:01 02/07/24 08:46 Venlafaxine 37.5 Mg Tablet PO 75 mg BID MELA Administration Objective Vital Signs/Intake & Output Reviewed Vital Signs: Yes Vital Signs: Vital Signs x48h Temp Pulse Resp BP Pulse Ox O2 Flow Rate 02/06/24 08:53 97.9 F 80 16 142/85 H 95 1 Intake & Output: Intake & Output 02/05/24 02/06/24 02/07/2402/07/24 05:59 05:59 05:59 05:59 Intake Total 1500 / 1500 2971 / 2971 2269 Balance 1500 / 1500 2971 / [id number] Weight (kg) 86.5 kg Objective General Appearance: positive No acute distress and Alert Eyes Bilateral: positive Normal inspection, PERRL and EOMI ENT: positive ENT inspection nml, Pharynx nml and No signs of dehydration Neck: positive Nml inspection, Thyroid nml and No JVD Respiratory: positive Chest non-tender, No respiratory distress and Breath sounds nml; negative Wheezes, Rales or Rhonchi Cardiovascular: positive Regular rate & rhythm, No murmur and No gallop; negative Systolic murmur or Diastolic murmur Abdomen: positive Non-tender; negative Guarding, Rebound, Hepatomegaly, Splenomegaly or Mass Back: positive Nml inspection; negative CVA tenderness (R) or CVA tenderness (L) Skin: positive Color nml, No rash and Dry Extremities: positive Non-tender, Full ROM and No pedal edema Neurologic/Psychiatric: positive Oriented x3 and Mood/affect nml Lab Results 02/07/24 06:12 02/07/24 06:12 Other Labs: Lab Results x24hrs 02/07/24 Range/Units 06:12 WBC 4.5 L (4.8-10.8) x10^3/uL RBC 2.92 L (4.70-6.10) 10^6/uL Hgb 7.7 L (14.0-18.0) g/dL Hct 26.4 L (42.0-52.0) % MCV 90.4 (80.0-94.0) fL MCH 26.4 L (27.0-31.0) pg MCHC 29.2 L (32.0-36.0) g/dL RDW 18.3 H (12.0-15.0) % Plt Count 153 (130-450) 10^3/uL MPV 8.7 (7.4-11.4) fL Sodium 137 (135-145) mmol/L Potassium 3.7 (3.5-4.5) mmol/L Chloride 101 (101-111) mmol/L Carbon Dioxide 30 (21-32) mmol/L Anion Gap 6.0 (6-13) BUN 9 (6-20) mg/dL Creatinine 0.4 L (0.6-1.3) mg/dL Estimated GFR (MDRD) 216 (>89) Glucose 103 (74-104) mg/dL Calcium 8.3 L (8.5-10.3) mg/dL Assessment/Plan Problem List (1) Acute hypoxic respiratory failure: Impression: Patient's desaturated to the low 80s, requiring 4 L of oxygen. Doing well today; continue to wean oxygen as tolerated. Remains on 1L. Will turn off, do ambulatory pulse ox tomorrow. Likely due to early community-acquired pneumonia in setting of repeated atelectasis due to increasing pain and shallow breathing. Will continue Rocephin for five days (last day 02/07). Completed azithromycin. (2) Pneumonia: Impression: Continue Rocephin and azithromycin. Qualifiers: Laterality: left Lung location: lower lobe of lung Pneumonia type: due to unspecified organism Qualified Code(s): J18.9 - Pneumonia, unspecified organism (3) Cancer associated pain: Impression: Patient with longstanding history of cancer associated pain due to extensive metastasis to the bones. Follows with palliative care in the outpatient setting. Will continue outpatient regimen including 10 mg of methadone 3 times a day, oxycodone 20 to 30 mg every 3 hours as needed depending on severity of pain. Will also continue Lyrica 50 mg 3 times a day. Will continue Decadron 2 mg daily as well. IV morphine added for breakthrough pain, which he has required. Plan to visit with Palliative care inpatient tomorrow prior to discharge. (4) Prostate cancer metastatic to bone: Impression: Dr. Hart's team was spoken with; they were able to see him in the hospital to go over his bone marrow biopsy results. Plan is chemotherapy once discharged. At this time, we will honor the POLST that we have on file, and attempt resuscitation.
[2024-02-07] MEDS: oxyCODONE 5 MG TABLET PO PRN (13:11)
[2024-02-07] MEDS: ACETAMINOPHEN 325 MG TABLET PO PRN (21:27)
[2024-02-07 22:16] VITALS: O2SAT 94
[2024-02-08 05:36] LABS: HCT - HEMATOCRIT 25.3 % (42.0-52.0); HGB - HEMOGLOBIN 7.7 g/dL (14.0-18.0); MEAN CORPUSCULAR HEMOGLOBIN 27.6 pg (27.0-31.0); MEAN CORPUSCULAR HGB CONC 30.4 g/dL (32.0-36.0); MEAN CORPUSCULAR VOLUME 90.7 fL (80.0-94.0); MEAN PLATELET VOLUME 9.3 fL (7.4-11.4); RED BLOOD COUNT 2.79 10^6/uL (4.70-6.10); RED CELL DISTRIBUTION WIDTH 18.3 % (12.0-15.0); WHITE BLOOD COUNT 4.2 x10^3/uL (4.8-10.8)
[2024-02-08 05:46] LABS: CALCIUM 8.7 mg/dL (8.5-10.3); CREATININE 0.4 mg/dL (0.6-1.3); POTASSIUM 3.9 mmol/L (3.5-4.5)
--- NOTE | 2024-02-08 08:54 | XRAY Report ---
PROCEDURE: XR Hip w/Pelvis 2-3V RT INDICATIONS: pain TECHNIQUE: An AP view of the pelvis and a frog-leg lateral view of the hip were acquired. COMPARISON: None. FINDINGS: Bones: No fractures or dislocations. There is vague increased sclerosis of the right iliac bone, par ticularly involving the acetabulum and supra-acetabular region. There is vague increased density of L 3 and L4 as well as patchy vague increased density in the proximal left femur. Findings are consisten t with sclerotic metastatic disease. Soft tissues: No suspicious soft tissue calcifications or masses. IMPRESSION: Subtle findings of sclerotic metastatic disease. No acute bony abnormality involving the pelvis and r ight hip. Reviewed by: Butch Laws MD on 02/08/2024 8:53 AM PST Approved by: Butch Laws MD on 02/08/2024 8:53 AM PST Station ID: [id number]
--- NOTE | 2024-02-08 10:34 | Discharge Summary ---
"Discharge Summary Admit Date: 02/04/24 Discharge Date: 02/08/24 Discharging Provider: Dr. Rustam Pavon Code Status: Attempt Resuscitation DIAGNOSES Admission Diagnoses: Respiratory failure Cancer associated pain Pneumonia Prostate cancer metastatic to bone Discharge Diagnoses with Status of Each Condition: Acute hypoxic respiratory failurepatient desaturated to the low 80s, requiring 4 L of oxygen initially. He is doing well today, on room air. Will do ambulatory pulse oximetry prior to discharge. Did provide patient with the incentive spirometer, and was advised to continue at home to prevent atelectasis. He was also treated for community-acquired pneumonia, and completed 5 days of Rocephin, as well as 3 days of azithromycin. Pneumoniaresolved. Completed Rocephin azithromycin course. Cancer associated painpatient was continued on his home methadone dose of 10 mg 3 times daily, oxycodone 20 to 30 mg every 2-3 hours, as well as Lyrica 50 mg 3 times a day. He was also given his Decadron 2 mg daily. IV morphine was added for breakthrough pain, his last dose was yesterday morning around 9:30 AM. Palliative care was consulted, and did come see the patient for further recommendations, they will continue to follow-up with him outpatient for his pain management. He was advised to follow-up with radiation oncology in the outpatient setting for some possible palliative radiation. Prostate cancer metastatic to boneDr. Hart, his oncologist, did speak with him while he was inpatient. Plan is for chemotherapy in the outpatient setting. HPI History of Present Illness: Per Conrad Grey, [employer]: 63-year-old male with PMH significant for metastatic prostate cancer being seen by Dr. Hart. He is not on chemo right now, but was most recently on Zytiga. He was in the ER earlier this month for pleuritic chest pain and was found to have bony mets to the ribs and pleural effusion. He was given a transfusion of blood for anemia and was sent home. His pain improved after that, but now he presents to the ER with left anterior chest wall pain worse with inspiration without dyspnea. Denies fever/chills. He attempted taking his home as needed oxycodone in addition to his long-acting opiate pain management without effect In the ER, CT chest was performed which showed bilateral posterior medial lower lobe pneumonia with pleural effusion as well as sclerotic osseous metastatic disease. He was initially given p.o. antibiotics and was going to be discharged home when his O2 dropped to 86% on room air. At that time, hospitalist was contacted for admission for acute respiratory failure with hypoxia CONSULTS | PROCEDURES Consultations: Palliative care, oncology, respiratory therapy Procedures: Chest x-ray, head CT, hip/pelvis x-ray HOSPITAL COURSE Hospital Course: Patient is a 64-year-old male with a history of metastatic prostate cancer who presents with shortness of breath. Upon arrival, he is saturating in the low 80s on room air. He was placed on 4 L with adequate recovery. Chest x-ray shows possible pneumonia; he was started on Rocephin and azithromycin. He completed 3-day course of azithromycin, as well as 5 days of Rocephin. Oxygen was weaned off, and he has been on room air. While he has been here, he has complained of ongoing breakthrough pain despite his regimen of methadone 10 mg 3 times a day, oxycodone 20 to 30 mg every few hours, Lyrica 3 times a day, Decadron 2 mg a day. We have put on IV morphine as needed which she required for few days, and this has improved. Palliative care, who manages his pain management, was consulted, they did come speak with him. Dr. Hart, who is his oncologist, also did visit him while he was in the hospital, and spoke with him about the next steps, which could include chemotherapy in the outpatient setting. He will need extensive follow-up in the outpatient setting with radiation oncology, medical oncology, as well as palliative care and his primary care physician. ALLERGIES Allergies Allergy/AdvReac Type Severity Reaction Status Date / Time No Known Drug Allergies Allergy Verified 02/03/24 08:54 MEDICATIONS Ambulatory Orders Medication Instructions Recorded Confirmed enzalutamide 80 mg tablet 160 mg (2 x 80 mg) PO QDAY #60 tabs 12/21/23 02/04/24 levothyroxine 50 mcg tablet 50 mcg PO QDAY 12/22/23 02/03/24 ondansetron HCl 8 mg tablet 8 mg PO .Q6 hours PRN Nausea / 12/22/23 02/04/24 Vomiting tamsulosin 0.4 mg capsule 0.8 mg PO QPM 12/22/23 02/04/24 venlafaxine 75 mg tablet 75 mg PO BID 12/22/23 02/04/24 [id number] 300 mcg-K 60 1 tab PO DAILY 12/29/23 02/04/24 mcg-lycop 600 mcg-lutein 300 mcg tablet (Centrum Silver Ultra Men's) methylphenidate HCl 10 mg tablet 20 mg (2 x 10 mg) PO BID fatigue 01/15/24 02/04/24 #120 tabs dexamethasone 2 mg tablet 2 mg PO QDAY #30 tabs 01/28/24 02/04/24 pregabalin 25 mg capsule 50 mg PO TID 01/28/24 02/04/24 methadone 10 mg tablet 10 mg PO Q8H #90 tabs 01/29/24 02/04/24 oxycodone 10 mg tablet 10 - 20 mg (1 - 2 x 10 mg) PO Q4H 01/29/24 02/04/24 PRN pain #180 tabs PHYSICAL EXAM AT DISCHARGE General Appearance: positive Alert; negative Anxious Eyes Bilateral: positive Normal inspection, PERRL and EOMI ENT: positive ENT inspection nml and No signs of dehydration Neck: positive Nml inspection, Thyroid nml and No JVD Respiratory: positive Chest non-tender and Breath sounds nml; negative Wheezes, Rales or Rhonchi Cardiovascular: positive Regular rate & rhythm, No murmur and No gallop; negative Tachycardia or Bradycardia Peripheral Pulses: positive 2+ Abdomen: positive Non-tender and No organomegaly; negative Tenderness, Guarding, Rebound, Hepatomegaly or Splenomegaly Back: positive Nml inspection; negative CVA tenderness (R) or CVA tenderness (L) Skin: positive Color nml, No rash, Warm and Dry Extremities: positive Non-tender, Full ROM and Nml appearance Neurologic/Psychiatric: positive Oriented x3 and Mood/affect nml LABS 02/08/24 04:31 02/08/24 04:31 DIAGNOSTIC IMAGING Diagnostic Imaging Results: Final report reviewed QUALITY (Female Hip Fx Only) Was patient sent home on osteoporosis medication?: No FOLLOW UP Follow Up: Follow-up with radiation oncology, medical oncology, primary care physician, palliative care. TIME SPENT Time Spent in Discharge (Minutes): 35 Discharge Plan Discharge Patient Disposition: Home, Self Care Condition: Stable Prescriptions: Continued methylphenidate HCl 10 mg tablet 20 mg PO BID Qty: 120 0RF methadone 10 mg tablet 10 mg PO Q8H Qty: 90 0RF oxycodone 10 mg tablet 10 - 20 mg PO Q4H PRN (Reason: pain) Qty: 180 0RF Rx Instructions: use for breakthrough pain/ not to exceed 10/ 24 hours tamsulosin 0.4 mg capsule 0.8 mg PO QPM ondansetron HCl 8 mg tablet 8 mg PO .Q6 hours PRN (Reason: Nausea / Vomiting) Centrum Silver Ultra Men's [id number] mcg tablet 1 tab PO DAILY enzalutamide 80 mg tablet 160 mg PO QDAY Qty: 60 2RF Rx Instructions: Enzalutamide 160 mg oral daily levothyroxine 50 mcg tablet 50 mcg PO QDAY Patient Comments: TAKE ONE TABLET BY MOUTH ONE TIME DAILY venlafaxine 75 mg tablet 75 mg PO BID Patient Comments: TAKE ONE TABLET BY MOUTH TWICE DAILY at 6am and 10pm dexamethasone 2 mg tablet 2 mg PO QDAY Qty: 30 2RF pregabalin 25 mg capsule 50 mg PO TID Patient Comments: Take 1 capsule by mouth three times a day at 6am 2pm 10pm Discontinued ferrous sulfate 325 mg (65 mg iron) tablet 325 mg PO DAILYWM Qty: 90 0RF atorvastatin [Lipitor] 40 mg tablet 40 mg PO QPM Activity Restrictions: Activity as Tolerated Diet: Regular Care Plan Goals: You came in initially because you were feeling short of breath. Your oxygen levels were found to be low. We found that you had another pneumonia, just like you had last month. We treated you with antibiotics. You no longer require oxygen at rest. You should continue to use your incentive spirometer at home when you can to keep your lungs open. While you are here, you had some breakthrough pain, for which she required a few doses of IV morphine. Our palliative care team, who you follow with outpatient, also spoke with you. We will continue with your current pain regimen. You should plan to see your radiation oncologist, Dr. Cosme, in the outpatient setting for further pain relief. I understand you're already thinking about this. You should also continue to follow-up with Dr. Hart about your future chemotherapy plans. You should also follow-up with palliative care, and Julissa, regarding your pain plan of care as well. We are glad you are feeling better. It was a pleasure taking care of you, and meeting your and your daughter. Thank you for allowing us to take care of you. Print Language: Scottish Patient Instructions: Cancer Managing Pain Ch, Pneumonia Dc Stand Alone Forms: PCP List Follow-up Care: ANDI BARONE ARNP [Primary Care Provider] -"
--- NOTE | 2024-02-08 12:03 | Palliative Care ---
Vitals Vital Signs 02/04/24 09:05 02/04/24 09:11 02/04/24 10:41 02/04/24 12:54 02/04/24 14:00 02/04/24 14:16 02/04/24 16:45 02/04/24 23:44 02/05/24 09:25 02/05/24 14:00 02/05/24 16:48 02/05/24 21:34 02/05/24 23:56 02/06/24 08:53 02/06/24 16:12 02/06/24 22:30 02/07/24 00:28 02/07/24 14:00 02/07/24 15:32 02/07/24 16:30 02/07/24 21:39 02/07/24 22:14 02/08/24 04:35 02/08/24 11:45 02/08/24 12:20 Height 5 ft 10 in 5 ft 10 in 5 ft 10 in Weight 196 lb 13.965 oz 190 lb 11.198 oz 190 lb 11.198 o z BMI 27.4 BP 150/77 H 150/77 H 163/89 H 163/89 H 166/88 H 122/72 125/70 123/70 11 1/64 119/71 152/88 H 152/89 H 142/85 H 163/87 H 178/98 H 173/98 H 143/88 H 151 /88 H 165/93 H 140/85 H Respiration 25 H 20 20 14 18 18 20 20 17 20 20 16 16 18 20 20 1 6 15 17 15 18 18 Pulse 105 H 106 H 101 H 85 86 88 81 89 69 81 81 84 80 86 86 92 H 92 H 86 85 82 Temp 99.8 F 99.9 F 97.9 F 97.7 F 97.3 F L 97.9 F 97.9 F 97.3 F L 97.9 F 98.1 F 97.9 F 97.7 F 97.9 F 97.7 F 97.9 F 98.1 F 97.9 F 97.3 F L Temp Source Oral Oral Temporal Artery Scan Skin Skin Temporal Artery Sc an Temporal Artery Scan Temporal Artery Scan Temporal Artery Scan Skin Temporal Artery Scan Temporal Artery Scan Temporal Artery Scan Skin Skin Temporal Artery Scan Temporal Artery Scan Pulse Oximetry 92 92 94 94 97 97 97 99 98 99 96 96 95 96 93 94 97 97 95 98 94 94 Meds/Allgy Home Medications Ambulatory Orders Medication Instructions Recorded Confirmed enzalutamide 80 mg tablet 160 mg (2 x 80 mg) PO QDAY #60 tabs 12/21/23 02/04/24 levothyroxine 50 mcg tablet 50 mcg PO QDAY 12/22/23 02/03/24 ondansetron HCl 8 mg tablet 8 mg PO .Q6 hours PRN Nausea / 12/22/23 02/04/24 Vomiting tamsulosin 0.4 mg capsule 0.8 mg PO QPM 12/22/23 02/04/24 venlafaxine 75 mg tablet 75 mg PO BID 12/22/23 02/04/24 [id number] 300 mcg-K 60 1 tab PO DAILY 12/29/23 02/04/24 mcg-lycop 600 mcg-lutein 300 mcg tablet (Centrum Silver Ultra Men's) methylphenidate HCl 10 mg tablet 20 mg (2 x 10 mg) PO BID fatigue 01/15/24 02/04/24 #120 tabs dexamethasone 2 mg tablet 2 mg PO QDAY #30 tabs 01/28/24 02/04/24 pregabalin 25 mg capsule 50 mg PO TID 01/28/24 02/04/24 methadone 10 mg tablet 10 mg PO Q8H #90 tabs 01/29/24 02/04/24 oxycodone 10 mg tablet 10 - 20 mg (1 - 2 x 10 mg) PO Q4H 01/29/24 02/04/24 PRN pain #180 tabs Allergies Allergies Allergy/AdvReac Type Severity Reaction Status Date / Time No Known Drug Allergies Allergy Verified 02/03/24 08:54 CC HPI Chief Complaint Chief Complaint: Pain of neoplastic origin; anemia; met prostate CA; ACP History Obtained From Records Reviewed: inpatient notes; previous PC notes History obtained from: Patient and ; hospitalist History of Present Illness HPI: This is a 64-year-old gentleman has metastatic prostate cancer, who I am seeing for pain management and palliative care support in the outpatient setting. Unfortunately he was hospitalized for pneumonia, with altered mental status, presenting with acute hypoxic respiratory failure, he has been treated with rocephin and azithromycin and doing well today. He and his present with many questions regarding moving forward with his treatment plan, pain management and goals of care. Patient's pain has continued to escalate, most intense still in rightback area, experiencing further pain in thighs and back of knees. Has remained on methadone 10 mg three times a day, using 20-30 mg oxycodone for BTP, and intermittent short acting IV MS of 2 mg. Pain worsens through the day, worse with sitting, best with laying out and no pressure on lower spine. He is most comfortable laying in his bed. They have brought couches down in living room to accomodate positioning, and learning to avoid activities that exacerbate pain. Spoke with Dr. Hart, and follow up with patient's understanding of current situation with his cancer. He is aware, and confirmed on biopsy has not only bone mets, but in bone marrow as well. He was offered chemotherapy, is waiting to see oncology in three weeks, to recover from pneumonia, remains hesistent in light of past experiences and quality of life vs quantity of life. He is also rescheduled follow up 02/21 with radiation oncology to see if can radiate the right hip area, had a pending appointment today which had to be cancelled. Patient and with multiple questions regarding continuum of care, hospice, treatment vs no treatment, and also discussed at length POLST, remains FULL CODE. Palliative Care Performance Status Performance status: Patient is ambulatory, is pacing his activities more, as does recognize increase activity often exacerbates pain. Is able to manage his own ADLs, is overseeing medications. Palliative Care Discussion: Discussion in the context of multiple issues, primarily weighing benefits and burdens of moving forward with treatment plan. Patient reports he was at a very down spot coming in with pneumonia, just wanting to throw in the towel, is feeling much more positive but is worried about quality of life versus quantity of life. In the context of this we did discuss the continuum of care, trialing chemotherapy weighing risks and benefit, would really like him to give it a try, patient has had multiple treatments as well as side effects. We also discussed unclear if can get better relief with further intervention with radiation oncology. Counseling provided regarding hospice, in the context of this 6 months or less, if patient does not receive treatment and most likely it would be weeks to months, particularly given his bone marrow involvement and need for transfusions. If he were to take treatment, most likely per oncology may get up to a year. Patient is interested in finding out what kind of support hospice can provide, would like an informational visit. Discussed at length the implications of being a full code and POLST. Reviewed currently all that has happened would happen even if he was a DNAR/DNI, concern is in providing DNAR/DNI in the setting of someone with stage IV disease, prolonging suffering, and with his significant bone mets. It is still difficult for him to comprehend, he does have a DPOA, as well as goals to focus on comfort during his terminal status, will continue to work with patient and 's understanding regarding this. Will leave as a default full code, recommended that by default it is "full-court press", and having a POLST does help define his wishes which are full code but can cause confusion. [facility] Medical History Medical History (Updated 02/08/24 @ 12:53 by MARIAN Khan) Pneumonia Hyperlipidemia Hypothyroidism Anemia Cancer associated pain Respiratory failure Tonsil cancer Surgical History Surgical History History of insertion of central venous access port Family History Family History Father Cancer Mother Cancer Social History Social History Smoking Status: Never smoker Second hand tobacco smoke exposure: No Do you dip or chew tobacco?: No Do you vape?: No Living arrangement: At home Marital Status: Living Condition: With spouse/s.o. Support Person: Yes Relationship: Spouse Level: Independent Do you feel safe in your home environment?: Yes Suffered physical, verbal, emotional, or financial abuse?: No POLST Patient has POLST: Yes POLST Status: Full Code Review of Systems Constitutional Reports: Fatigue and Weakness; Denies: Fever or Chills Respiratory Reports: SOB with exertion Musculoskeletal Reports: Back pain and Muscle weakness Psychiatric Reports: Depression, Anxiety and Difficulty concentrating Endocrine Reports: Fatigue Hematologic/Lymphatic Reports: Anemia Exam Constitutional no apparent distress and alert laying out on bed; to uncomfortable sitting Neck/C-Spine trachea midline Respiratory normal respiratory effort Back/Pelvis tenderness in right lower back/pelvis area Neurology speech normal gait with slight limp; guarding right side Psychiatry cooperative and affect normal Skin color slightly benavidez/pale Impression Impression: This is a 64-year-old gentleman who has metastatic prostate cancer with fluctuating pain related to bone mets. Patient with acute symptoms and hospitalization r/t CAP, has completed treatment with improvement. Patient currently on methadone 30 mg total/24 hours, will continue oxycodone for BTP, and continue titration of pregabalin with goal to 75 mg TID. Patient with bone marrow involvement, will monitor weekly labs through outpatient. Palliative care providing support for pain and symptom management, counseling for adjustment illness and anticipatory guidance. Will continue outpatient support. Assessment & Plan Assessment & Plan (1) Malignant neoplasm of prostate metastatic to bone: Assessment: Reviewed patient's current understanding of cancer and treatment, to re-evaluate in 3 weeks with oncology. Code(s): C61 - Malignant neoplasm of prostate; C79.51 - Secondary malignant neoplasm of bone Plan: Addressed patients fears and concerns, education provided in the context of weighing burdens and benefits, quality vs quantity of life, and "time trial" of trying treatment first. (2) Anemia: Assessment: Patient at 7.7 today, spoke with Dr. Hart, less is better, would only transfuse at this point for less than 7.0. Code(s): D64.9 - Anemia, unspecified Plan: Instructed to stop iron, with multiple transfusions risk for iron overload. Will arrange for weekly CBC and hold pink tube. Patient and very anxious about not needing to return to ED for transfusions or symptoms r/t this if possible. Qualifiers: Anemia type: bone marrow failure (3) Counseling regarding advanced care planning and goals of care: Assessment: Patient and with many questions about continuum of care, what/when transition to hospice, and discussed need for addressing CODE status Code(s): Z71.89 - Other specified counseling Plan: Counseling provided regarding hospice, goal setting, making decisions in context of serious illness. Long discussion on POLST, patient at this time still planning to be FULL code. Would like hospice informational visit, will make referral for after Thanksgiving per request. Did review though regarding comfort focused care, min to no transfusions depending on goals, they are the 911/ no ED visits, no treatment, would recommend if going to transition wait until after radiation consult options for pain control. (4) Pain due to malignant neoplasm metastatic to bone: Assessment: Patient with flucutating pain, will keep regimen same with more liberal use of oxycodone for BTP, and increase pregabalin, no changes to methadone this week, and hopefully can get radiation to targeted area of most discomfort right hip/back area. Have been in previous contact with Dr. Pinzon. Code(s): G89.3 - Neoplasm related pain (acute) (chronic); C79.51 - Secondary malignant neoplasm of bone Plan: Will keep methadone the same, will increase BTP oxycodone to 20-60 mg, will order 20 mg tabs if not done previously. Will titrate up pregablin from 50 mg to 75 mg TID with increasing by 25 mg every 2-3 days. Written instructions provided to patient/. manages medications. Plan Will get labs on Thursday, will see patient end of week, and have check in's with PC RN/NOVELTY DIPPER by phone through week. Medications: Discontinued ferrous sulfate Discontinued Reason: Per Provider 325 mg PO DAILYWM 90 tabs 0RF D63.0 - Anemia in neoplastic disease
== END 2024-02-08 12:41 | disposition home or self-care (01) | DRG 189 ==
LOC: ED 08:56 → MS2 13:33
PROVIDERS: ADMIT Internal Medicine; ATTEND Internal Medicine
DX: C61 Malignant neoplasm of prostate; J96.01 Acute respiratory failure with hypoxia; J18.9 Pneumonia, unspecified organism; Z79.899 Other long term (current) drug therapy; C79.51 Secondary malignant neoplasm of bone; E78.5 Hyperlipidemia, unspecified; I10 Essential (primary) hypertension; Z20.822 Contact with and (suspected) exposure to COVID-19; G89.3 Neoplasm related pain (acute) (chronic)

== ENCOUNTER 2024-04-05 14:42 | Inpatient (IN) ==
[2024-04-05] MEDS ORDERED: MIN OIL/DIMETHICON/COCONUT OIL 92 GM TUBE TOP PRN (14:44)
[2024-04-05] MEDS ORDERED: PETROLATUM WHITE 5 GM PACKET TOP PRN (14:44)
[2024-04-05] MEDS ORDERED: CARBOXYMETHYLCELLULOSE OPHTH DROPS EACHEYE PRN (14:44)
[2024-04-05] MEDS ORDERED: ONDANSETRON 4 MG/2 ML VIAL IVP PRN (15:04)
[2024-04-05] MEDS ORDERED: ACETAMINOPHEN 325 MG TABLET PO PRN (15:04)
[2024-04-05] MEDS: OLANZapine ODT 5 MG TABLET TL SCH (15:33)
--- NOTE | 2024-04-05 15:55 | HISTORY & PHYSICAL EXAMINATION ---
Chief Complaint Chief Complaint Chief Complaint: hallucinations, restlessness, med refusals, pain History of Present Illness Admitted From Admitted From:: Home History Obtained From History obtained from: Spouse/pt History of Present Illness HPI Comment/Other: 64 yo male w/prostate cancer w/metastases to bone and bone marrow. He was initi ally dx'd 07/05. In August 2021, MRI revealed pelvic lymphadenopathy and L ischial bone met. PET CT showed mets to spine/pelvis. He is s/p extensive treatment w/anti-androgen therapy, chemo and immunotherapy. He recently developed bone marrow involvement and has required transfusions for anemia (6 since 01/06). Recent hospitalization for pna. On admission, PPS 50%. Wt 163#. LMAC 25 cm. He admitted 03/21/24, but revoked 03/24/24 to have another transfusion. He followed up w/his oncologist on 03/28/24 and was offered additional chemotherapy. He decided not to pursue further treatment and was readmitted for comfort directed care on 03/30/24. Since readmission, he has had significant difficulties w/pain mgmt. A trial of MSIR was attempted but after several doses, he reported hallucinating "birds" and returned to oxycodone. He cannot tolerate more than 40 mg per dose or becomes jittery and develops shaking hands. He reported to me on readmission to hospice that on bad days, he will take up to 240 mg of oxycodone and he feels terrible when he takes that high of a dose. He was on 30 mg TID methadone on readmit to hospice. Dose was increased to 40 mg TID on 04/01. It seemed to be effective briefly, but he has had increasing difficulty w/poorly controlled pain. Over the past few days, he has become increasingly confused. He has developed swallowing difficulty. Yesterday, pregabalin, ritalin, levothyroxine and miralax were d/c'd and venlafaxine was changed to qod to begin a wean. He was still able to take meds crushed w/applesauce. He was noted to be comfortable but confused. Today, he began refusing meds, having increased restlessness/hallucinations. He was c/o pain w/even light touch. He frequently c/o the need to have a BM or urinate. He did have a medium sized BM but still could not calm. He told his today that he was cured and had super dill. Ultimately, it was felt GIP admission to control s would be required. In the past 24 hours, he has had 120 mg methadone, 240 mg oxycodone, and 40 mg morphine. Meds/Allgy Home Medications Ambulatory Orders Medication Instructions Recorded Confirmed levothyroxine 50 mcg tablet 50 mcg PO QDAY 12/22/23 03/19/24 ondansetron HCl 8 mg tablet 8 mg PO .Q6 hours PRN Nausea / 12/22/23 03/19/24 Vomiting tamsulosin 0.4 mg capsule 0.8 mg PO QPM 12/22/23 03/19/24 [id number]-[id number] 300 mcg-K 60 1 tab PO DAILY 12/29/23 03/19/24 mcg-lycop 600 mcg-lutein 300 mcg tablet (Centrum Silver Ultra Men's) oxycodone 20 mg tablet 20 - 60 mg (1 - 3 x 20 mg) PO Q4H 02/26/24 03/19/24 PRN pain #180 tabs methadone 10 mg tablet 30 mg (3 x 10 mg) PO Q8H 30 days 03/11/24 03/19/24 #270 tabs alprazolam 0.5 mg tablet 0.5 mg PO BID PRN anxiety #60 tabs 03/18/24 03/18/24 dexamethasone 2 mg tablet 2 mg PO BID #60 tabs 03/18/24 03/18/24 mirtazapine 15 mg tablet 15 mg PO HS #30 tabs 03/18/24 03/18/24 venlafaxine 75 mg tablet 75 mg PO QDAY #180 tabs 03/18/24 03/18/24 methylphenidate HCl 10 mg tablet 10 mg PO BID fatigue #60 tabs 03/29/24 pregabalin 75 mg capsule 75 mg PO TID #90 caps 03/29/24 Allergies Allergies Allergy/AdvReac Type Severity Reaction Status Date / Time No Known Drug Allergies Allergy Verified 03/24/24 17:36 [facility] Medical History Medical History Prostate cancer Pneumonia Hyperlipidemia Hypothyroidism Anemia Cancer associated pain Respiratory failure Tonsil cancer Surgical History Surgical History History of insertion of central venous access port Family History Family History Father Cancer Mother Cancer Social History Social History Smoking Status: Never smoker Second hand tobacco smoke exposure: No Do you dip or chew tobacco?: No Do you vape?: No Living arrangement: At home Marital Status: Living Condition: With spouse/s.o. Support Person: Yes Relationship: Spouse Level: Dependent Do you feel safe in your home environment?: Yes Suffered physical, verbal, emotional, or financial abuse?: No POLST Patient has POLST: Yes POLST Status: comfort focused care Review of Systems Difficult to obtain d/t his confusion/forgetfulness; no UOP today, received an enema per hospice volunteer, has had frequent stool output since then Exam Constitutional Ill appearing middle aged male, pale, A&Ox2, confused/forgetful HENMT normocephalic, external ears normal and oral mucous membranes abnormal (dry) and other (tongue w/yellowish coating noted) Eyes PERRL, EOMs intact bilaterally and no scleral icterus Respiratory breath sounds equal bilaterally, clear to auscultation bilaterally, no wheezes, no rales, no retractions and no use of accessory muscles Cardiovascular normal heart rate noted, no gallop, no rub and no murmur Gastrointestinal moderate distention in the suprapubic region, mildly tender, BTx4 Extremities normal to inspection and normal to palpation Neurology Forgetful, difficulty tracking conversations, requires frequent reorientation Skin Pale, no rash Core Measures Issues Hospital Issues and Management Plan: 1) Delirium and concern for OIN 2) Metastatic prostate cancer 3) Urinary retention 4) Dehydration 5) Anemia Code status: DNR Patient presents w/confusion, hyperalgesia, increased pain despite escalating doses of opioids, all hallmarks for opioid induced neurotoxicity. The culprit is most likely oxycodone as he has had prior difficulty tolerating oxycodone. Will admit to [facility] level of care for mgmt. Will give IVF x 2 L NS. Will rotate opioids from methadone/oxycodone/MS liquid to a fentanyl infusion, both d/t concerns of OIN and d/t his increasing difficulty w/dysphagia. Discussed w/patient's , Whit, and dtr, Nancy, that it is possible this is the onset of terminal delirium in which case these interventions will not be effective. If that is the case, they wish to take him home as soon as possible to care for him at home until he dies. We will reassess tomorrow. If it is OIN, I would anticipate some improvement w/hydration and opioid rotation. If it is terminal delirium, I would expect no improvement or worsening sxs. Given his increasing difficulty w/transfers and being increasingly unsafe, as well as my concern for urinary retention, I discussed a whitley catheter w/him this evening. He was agreeable. Whitley cath was placed by hospital RN w/400 cc returned. Plan to continue whitley upon d/c. Tamsulosin d/c'd. Pt has a known hx of anemia and has required frequent transfusions. At this time, he is not exhibiting any symptoms of anemia (tachycardia, dyspnea, hypotension, dizziness). He does have pale nailbeds/palms and I would suspect his Hgb is in the 7 range. That said, he is likely hemoconcentrated and may develop symptomatic anemia w/hydration. If he shows signs of significant clinical improvement with above interventions, I will consider obtaining a CBC to assess further. However, if he does not respond much to above interventions, I would estimate his prognosis is a matter of days and a transfusion would provide no benefit. I discussed this with Whit and Nancy and they agreed. Pt completed his 1st oral request for DWD (MAiD) last week. However, he lacks cognitive capacity at this point to continue with the process. Marciano are aware this is on hold at this point. Will continue: Mirtazepine at hs for night terrors (crushed w/apple sauce) Dexamethasone 4 mg q am crushed w/apple sauce - weaning from BID dosing - he has been steroid dependent for 2+ months. Venlafaxine 75 mg qod given crushed w/applesauce - weaning to avoid w/d sxs.
[2024-04-05] MEDS ORDERED: SODIUM CHLORIDE 0.9% 1,000 ML ONE (16:52)
[2024-04-05] MEDS: fentaNYL PCA 500 MCG IV SCH (17:33)
[2024-04-05] MEDS: LIDOCAINE JELLY 2% 6 ML JEL.PF.APP TOP ONE (17:59)
[2024-04-05] MEDS: SODIUM CHLORIDE 0.9% 250 ML IV SCH (18:00)
[2024-04-05] MEDS ORDERED: VENLAFAXINE 37.5 MG TABLET PO SCH ×2 (18:00)
[2024-04-05] MEDS: LORazepam 2 MG/ML VIAL IVP PRN (18:47)
[2024-04-05] MEDS: OLANZapine ODT 5 MG TABLET TL PRN (21:13)
[2024-04-05] MEDS: MIRTAZAPINE 15 MG TABLET PO SCH (21:21)
[2024-04-06] MEDS ORDERED: fentaNYL 100 MCG/2 ML VIAL ONE (02:07)
[2024-04-06] MEDS ORDERED: SODIUM CHLORIDE 0.9% 50 ML IV ONE (02:09)
[2024-04-06] MEDS ORDERED: fentaNYL 250 MCG/5 ML VIAL ONE (02:28)
[2024-04-06 08:21] VITALS: BP 165/93; TEMP 98.1; O2SAT 97
[2024-04-06] MEDS: dexAMETHasone 4 MG TABLET PO SCH (08:30)
[2024-04-06] MEDS: OLANZapine ODT 5 MG TABLET TL SCH (11:00)
[2024-04-06] MEDS: fentaNYL 2,500 MCG in SODIUM CHLORIDE 0.9% 200 ML IV SCH (11:58)
--- NOTE | 2024-04-06 12:43 | PROVIDER PROGRESS NOTE ---
Progress Note Progress Note Progress Note: 64 yo male w/prostate cancer w/metastases to bone and bone marrow. He was admitted to [facility] level of care yesterday for intractable pain, hallucinations, and agitation. On admission, it was discussed w/his and dtr that it was possibly d/t OIN vs. terminal agitation. Plan was to rotate to a fentanyl infusion, give IVFs and reassess his mental status today. Since admission, he received 8 mg of IV lorazepam. His reports that it was not particularly effective. She notes he would sleep then wake up for 15 seconds, becomes highly agitated, yells out and goes back to sleep. He has received a total of 875 mcg of fentanyl/15 hrs (avg around 60mcg/hr). He received one dose of olanzepine w/o much effect. Whitley catheter was placed w/a total of about 950cc of UOP. He has 2 additional BMs overnight since receiving a suppository yesterday afternoon. Joel remains confused and is easily agitated. He denies pain to me. He also denied pain to the stress engineer who arrived shortly before I did. He otherwise doesn't engage in conversation. Objective: T36.7 HR 107 RR18 BP 165/93 O2 sat 97% RA Gen- ill appearing middle aged male, agitated w/cares HEENT - NC, face symmetric Chest- CTAB CV- mildy tachy w/RR Abd-mildly distended, resists exam, appears diffusely tender Extr-warm, no C/C/E Assessment: 1) Delirium, concerning for terminal delirium 2) Metastatic prostate cancer 3) Urinary retention s/p whitley catheter placement 4) Dehydration, resolved w/IVFs 5) Anemia Discussed w/spouse and dtr that at this point, I doubt his delirium is d/t OIN given he appears worse today despite IVFs, opioid rotation and benzodiazepines. Explained that this appears to be terminal delirium. Given that, we discussed the goal of getting him discharged as soon as possible. Will coordinate w/pharmacy and [facility] re: obtaining urgently needed fentanyl infusion. Will plan to give a loading dose of phenobarbital 200 mg IV just prior to d/c and once home and comfortable, will have stress engineer place a giancarlo catheter for ongoing phenobarb for agitation. For now, will continue scheduled olanzepine. Will d/c lorazepam as it hasn't been effective. Once we have secured a plan for his fentanyl infusion, our [employer] will coordinate non-emergent ambulance for discharge home.
--- NOTE | 2024-04-06 15:06 | Discharge Summary ---
Discharge Summary Admit Date: 04/05/24 Discharge Date: 04/06/24 DIAGNOSES Admission Diagnoses: 1) Delirium and concern for OIN 2) Metastatic prostate cancer 3) Urinary retention 4) Dehydration 5) Anemia Discharge Diagnoses with Status of Each Condition: 1) Terminal delirium 2) Metastatic prostate cancer 3) Urinary retention, s/p whitley catheter 4) Dehydration, improved 5) Anemia HPI History of Present Illness: 64 yo male w/prostate cancer w/metastases to bone and bone marrow. He was initially dx'd 07/05. In August 2021, MRI revealed pelvic lymphadenopathy and L ischial bone met. PET CT showed mets to spine/pelvis. He is s/p extensive treatment w/anti-androgen therapy, chemo and immunotherapy. He recently developed bone marrow involvement and has required transfusions for anemia (6 since 01/06). Recent hospitalization for pna. On admission, PPS 50%. Wt 163#. LMAC 25 cm. He admitted 03/21/24, but revoked 03/24/24 to have another transfusion. He followed up w/his oncologist on 03/28/24 and was offered additional chemotherapy. He decided not to pursue further treatment and was readmitted for comfort directed care on 03/30/24. Since readmission, he has had significant difficulties w/pain mgmt. A trial of MSIR was attempted but after several doses, he reported hallucinating "birds" and returned to oxycodone. He cannot tolerate more than 40 mg per dose or becomes jittery and develops shaking hands. He reported to me on readmission to hospice that on bad days, he will take up to 240 mg of oxycodone and he feels terrible when he takes that high of a dose. He was on 30 mg TID methadone on readmit to hospice. Dose was increased to 40 mg TID on 04/01. It seemed to be effective briefly, but he has had increasing difficulty w/poorly controlled pain. Over the past few days, he has become increasingly confused. He has developed swallowing difficulty. Yesterday, pregabalin, ritalin, levothyroxine and miralax were d/c'd and venlafaxine was changed to qod to begin a wean. He was still able to take meds crushed w/applesauce. He was noted to be comfortable but confused. Today, he began refusing meds, having increased restlessness/hallucinations. He was c/o pain w/even light touch. He frequently c/o the need to have a BM or urinate. He did have a medium sized BM but still could not calm. He told his today that he was cured and had super dill. Ultimately, it was felt [facility] admission to control sxs would be required. In the past 24 hours, he has had 120 mg methadone, 240 mg oxycodone, and 40 mg morphine. HOSPITAL COURSE Hospital Course: Pt was admitted to the hospital as GIP LOC for hallucinations, agitation and intractable pain. He was placed on a fentanyl infusion and IVFs d/t possibility of opioid induced neurotoxicity related to oxycodone and his incrementally increased use to control pain. Overnight, he received 8 mg IV lorazepam. Per patient's , this did not impact his agitation. His fentanyl was increased to 60 mcg/hr from 25 mcg/hr based on his PRN need over the first 15 hours following initiation of the infusion. His pain was clearly better controlled, but unfortunately his agitation was worse, which was more consistent w/terminal delirium. Based on discussions w/his family on admission, they requested discharge home so he could spend his final days in his home, which was his stated goal. He was initiated on scheduled olanzepine and lorazepam was discontinued. Arrangements were made for urgent discharge home and the inpatient pharmacy sales representative and executive assistant to general counsel arranged for patient's current infusion to be sent with him until [facility] can deliver a CAD pump and hydromorphone infusion sometime on 04/07/24. I strongly believe if we delayed his hospital discharge until tomorrow, he may not be able to discharge home at all at that point, so there was significant urgency in expediting discharge today. Patient will d/c home via nonemergent ambulance later this afternoon. ALLERGIES Allergies Allergy/AdvReac Type Severity Reaction Status Date / Time No Known Drug Allergies Allergy Verified 03/24/24 17:36 MEDICATIONS Ambulatory Orders Medication Instructions Recorded Confirmed ondansetron HCl 8 mg tablet 8 mg PO .Q6 hours PRN Nausea / 12/22/23 03/19/24 Vomiting mirtazapine 15 mg tablet 15 mg PO HS #30 tabs 03/18/24 03/18/24 venlafaxine 75 mg tablet 75 mg PO QDAY #180 tabs 01/03/25 01/03/25 dexamethasone 4 mg tablet 4 mg PO DAILY #1 tab 04/06/24 fentanyl citrate (PF) 2,500 mcg/50 60 mcg (1.2 mL) IV Q1H 04/06/24 mL (50 mcg/mL) intravenous [employer] syringe olanzapine 5 mg disintegrating 5 mg translingual TID #30 tabs 04/06/24 tablet TIME SPENT Time Spent in Discharge (Minutes): 90 Discharge Plan Discharge Patient Disposition: 50 Hospice/Home DC/Xfer Condition: Serious Medically Cleared Date:: 04/06/24 Prescriptions: New dexamethasone 4 mg Tablet 4 mg PO DAILY Qty: 1 0RF fentanyl citrate (PF) 2,500 mcg/50 mL (50 mcg/mL) pt controlled analgesia syring 60 mcg IV Q1H olanzapine 5 mg Tablet,Disintegrating 5 mg translingual TID Qty: 30 0RF Continued ondansetron HCl 8 mg tablet 8 mg PO .Q6 hours PRN (Reason: Nausea / Vomiting) venlafaxine 75 mg tablet 75 mg PO QDAY Qty: 180 0RF mirtazapine 15 mg tablet 15 mg PO HS Qty: 30 2RF Discontinued oxycodone 20 mg tablet 20 - 60 mg PO Q4H MDD not to exceed 12/ 24 hours PRN (Reason: pain) Qty: 180 0RF pregabalin 75 mg capsule 75 mg PO TID Qty: 90 0RF methylphenidate HCl 10 mg tablet 10 mg PO BID Qty: 60 0RF tamsulosin 0.4 mg capsule 0.8 mg PO QPM Centrum Silver Ultra Men's [id number] mcg tablet 1 tab PO DAILY levothyroxine 50 mcg tablet 50 mcg PO QDAY Patient Comments: TAKE ONE TABLET BY MOUTH ONE TIME DAILY dexamethasone 2 mg tablet 2 mg PO BID Qty: 60 3RF alprazolam 0.5 mg tablet 0.5 mg PO BID PRN (Reason: anxiety) Qty: 60 0RF methadone 10 mg tablet 30 mg PO Q8H 30 Days Qty: 270 0RF Activity Restrictions/Additional Instructions: Continue fentanyl infusion at 60 mcg/hr. Patient to be discharged with current infusion bag of fentanyl (approved per BOB Luong, clinical engineering director) and current IV pole/pump and lock (approved per Anibal Santiago, nursing program coordinator). field operator, Radha Holden to present to Med/Surg floor prior to patient d/c to confer with inpatient RN re: lock code and pump instructions. Plan of Treatment: Whitley catheter to remain in place Port to remain accessed w/infusion at current settings as noted. Pt will d/c home via nonemergent ambulance (will be set up by Hospice DIRECTOR [facility]) Medication instructions for Joel's family: Dexamethasone - give 4 mg tomorrow morning, then reduce to 2mg daily on Thursday morning. Venlafaxine - give a dose tomorrow, then change to every 3 day dosing. Mirtazepine - continue giving his usual dose every evening. Print Language: Citizen [place] Patient Instructions: Hospice Nears, Delirium
[2024-04-06] MEDS: PHENobarbital 65 MG/ML VIAL IV ONE (16:26)
[2024-04-06] MEDS: fentaNYL 100 MCG/2 ML VIAL IVP STA (16:26)
== END 2024-04-06 16:40 | disposition hospice, home (50) | DRG 948 ==
LOC: MS2 16:26
PROVIDERS: ADMIT Family Medicine; ATTEND Family Medicine
DX: C61 Malignant neoplasm of prostate; C79.52 Secondary malignant neoplasm of bone marrow; R44.1 Visual hallucinations; E78.5 Hyperlipidemia, unspecified; G89.3 Neoplasm related pain (acute) (chronic); R33.9 Retention of urine, unspecified; R45.1 Restlessness and agitation; R41.0 Disorientation, unspecified; D64.9 Anemia, unspecified; Z51.5 Encounter for palliative care; C79.51 Secondary malignant neoplasm of bone; E03.9 Hypothyroidism, unspecified; E86.0 Dehydration